=== PATIENT | male | born 1950 | race Caucasian/White ===

== ENCOUNTER 2020-03-23 09:33 | Outpatient (REF) | payer OTHER, SELFPAY | END 2020-03-23 09:34 | disposition home or self-care (01) | LOC: HO.LAB 09:33 | PROVIDERS: Visit Provider Internal Medicine | DX: Z20.828 Contact with and (suspected) exposure to other viral communicable diseases (principal) | CPT/HCPCS: C9803; U0003 ==

== ENCOUNTER 2022-10-02 09:50 | Outpatient (AMB) | payer OTHER, SELFPAY ==
[2022-10-02 09:58] VITALS: BP 135/74; PULSE 77; O2SAT 99; BMI 25.4
--- NOTE | 2022-10-02 09:58 | A.OFFPC_ITS ---
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 He has no significant past medical history, takes only multivitamins. He still works, self-employed, stays active, has started going to the gym with his . He however complains of problems with maintaining penile erection during sexual intercourse. This has been ongoing now for the last several months and progressively getting more frequent. He has not had any colon cancer screening in the past, willing to do Cologuard, and does not want to get any vaccinations. [facility] Medical History (Updated 06/18/23 @ 13:57 by Connie Atkins MD) Hiatal hernia Erectile dysfunction Surgical History (Updated 06/15/23 @ 14:18 by Jemma Stapleton RN) History of rectal surgery Hx of esophagogastroduodenoscopy Family History (Updated 10/02/22 @ 11:27 by Connie Atkins MD) Father Diabetes mellitus, Onset Age: 70 Mother No problems noted. Brother Acute myocardial infarction, Onset Age: 52 Social History Household Members: Spouse Housing: House Do you presently have visiting nurse or other home services: No Patient Tobacco Use Status: Current someday Tobacco user Tobacco use type: Cigarette Smoked in Last 30 Days: No e-Cigarette/Vaping Use: Never Used Patient Interested in Nicotine Replacement: No Second Hand Smoke Exposure: No Use of substances other than those prescribed or required for medical reasons: No Currently Displaying Signs/Symptoms of Drug Intoxication Withdrawal: No Any prior treatment program specific to substance use: No Have you been hit, kicked, punched, or otherwise hurt by someone within the past year? If so, by whom?: No Do you feel safe in your current relationship?: Yes Is there a partner from a previous relationship who is making you feel unsafe now?: No Are you made to feel afraid or neglected: No Are you DNR?: No Advance Directives: No Advance Directives Information Provided: No Do you have thoughts of harming others: None Do you have a plan to hurt others: No Plan Recently lost weight without trying: Unsure Eating poorly because of decreased appetite: Yes Nutrition Risks: Poor intake 0-25% >4 days Poor oral hygiene: No service: No Current occupational status: employed Cognitive needs: No Hearing needs: No Vision needs: Yes Questionnaire PHQ-9 Over the last 2 weeks, how often have you been bothered by any of the following problems? 1. Little interest or pleasure in doing things: not at all 2. Feeling down, depressed, or hopeless: not at all 3. Trouble falling or staying asleep, or sleeping too much: not at all 4. Feeling tired or having little energy: not at all 5. Poor appetite or overeating: not at all 6. Feeling bad about yourself - or that you are a failure or have let yourself or your family down: not at all 7. Trouble concentrating on things, such as reading the newspaper or watching television: not at all 8. Moving or speaking so slowly that other people could have noticed. Or the opposite - being so fidgety or restless that you have been moving around a lot more than usual: not at all 9. Thoughts that you would be better off or of hurting yourself in some way: not at all Total score: 0 Depression Screening Interpretation: Negative [id number] - PHQ-9 Billing: Yes Source: Developed by Drs. Vaughn Zazueta, Katharina Rey, Rony Hidalgo and colleagues, with an educational douglas from [email or web address]. Thrive Questionnaire Date Thrive assessed: 10/02/22 I am a: Patient What is your living situation today?: I have a steady place to live Within the past 12 months, did the food you bought not last and you didn't have the money to get more?: Never true Within the past 12 months, did you worry whether your food would run out before you got money to buy more?: Never true Do you have trouble paying for medicines?: No Do you have trouble getting transportation to medical appointments?: No Do you have trouble paying your heating and electricity bill?: No Do you have trouble taking care of your child, family member or friend?: No Do you have trouble with day-to-day activities such as bathing, preparing meals, shopping, managing finances, etc.?: No Are you currently unemployed and looking for a job?: No Are you interested in more education?: No AUDIT C Alcohol Use Questionnaire (AUDIT-C) 1. How often do you have a drink containing alcohol?: 2-3 times a week 2. How many drinks containing alcohol do you have on a typical day when you are drinking?: 1 or 2 (Drinks red wine with dinner) 3. How often do you have six or more drinks on one occasion?: Never Total Score: 3 Score Reviewed/Action Taken: Yes KRYSTIAN-7 AMB Questionnaire KRYSTIAN-7 Date KRYSTIAN - 7 assessed: 10/02/22 Feeling nervous, anxious, or on edge: 0 = Not at all Not being able to stop or control worryin = Not at all Worrying too much about different things: 0 = Not at all Trouble relaxin = Not at all Being so restless that it is hard to sit still: 0 = Not at all Becoming easily annoyed or irritable: 0 = Not at all Feeling afraid as if something awful might happen: 0 = Not at all Total KRYSTIAN-7 score (0-4 normal; 5-9 mild; 10-14 moderate; 15-21 severe): 0 Source: Developed by Drs. Vaughn Zazueta, Katharina Rey, Rony Hidalgo and colleagues, with an educational douglas from [email or web address]. KRYSTIAN-7 Assessment Billing KRYSTIAN-7 Assessment Tool: KRYSTIAN-7 Assessment 39671 Review of Systems Const Denies body aches, Denies fatigue, Denies fever(s), Denies headache(s) and Denies weakness Eyes Details: utd with eye exam, wears progressives Denies change in vision, Denies eye discharge and Denies itchy eyes ENT Denies dizziness, Denies headache(s), Denies nasal congestion, Denies nasal discharge and Denies sore throat Card Denies chest pain, Denies lightheadedness, Denies palpitations and Denies dyspnea Resp Denies chest congestion, Denies cough, Denies dyspnea and Denies wheezing GI Denies abdominal pain, Denies change in bowel habits and Denies heartburn Reports as per HPI, Denies hematuria, Denies oliguria, Denies difficulty urinating, Denies genital pain, Denies dysuria, Denies nocturia, Denies urinary frequency and Denies urinary urgency Musc Reports no additional complaints Skin/Breast Denies breast pain, Denies breast mass, Denies lesions and Denies rash Neuro Denies dizziness, Denies headache(s) and Denies weakness Psych Reports no additional complaints Endo Denies fatigue, Denies polydipsia, Denies polyuria and Denies palpitations Mac/Lymph Denies easy bruising Aller/Immun Denies itchy eyes, Denies seasonal rhinorrhea and Denies wheezing Physical exam (Primary Care) Vital Signs: Last Vital Signs Pulse 77 10/02/22 09:58 BP 135/74 10/02/22 09:58 Pulse Ox 99 10/02/22 09:58 Oxygen Delivery Method Room Air 10/02/22 09:58 BMI result Body Mass Index 25.4 Tobacco/Smoking Status: Tobacco use Status Tobacco use date assessed 10/02/22 10/02/22 10:00 Patient Tobacco Use Status Former Tobacco user 10/02/22 10:00 e-Cigarette/Vaping Use Never Used 10/02/22 10:00 PHQ-9: PHQ-9 Score PHQ-9: Total score 0 10/02/22 11:34 Depression Screening Interpretation: Negative Thrive Assessment: Date of Thrive Assessment Date Thrive assessed 10/02/22 10/02/22 10:03 Const General: healthy appearing, comfortable and no acute distress Nutritional Appearance: average body habitus Orientation/consciousness: patient oriented x3 Limitations: no limitations HENMT Head: Yes normocephalic Ears: hearing grossly normal bilaterally, external ears normal, TM's normal bilaterally and EAC's normal General nose exam: Normal external nose present Face and sinus: Yes face symmetric Mouth: Normal oral and palatal mucosa present, oropharynx normal and moist mucous membranes Eyes General: appearance normal, both eyes and all related structures Pupils: Equal, round and reactive pupils present EOM: EOMs intact bilaterally Neck Neck: Yes full ROM, Yes no lymphadenopathy and Yes supple Chest Chest palpation & inspection: normal inspection of the chest and normal palpation of entire chest wall Resp Effort & Inspection: normal respiratory effort and able to speak in complete sentences Auscultation: clear to auscultation bilaterally Cardio Rate: regular rate Rhythm: regular rhythm Heart sounds: S1 normal heart sound present and S2 normal heart sound present GI Inspection: Yes normal to inspection Palpation (GI): Soft to palpation, nontender, no guarding and no masses Auscultation: normal bowel sounds General: Yes no CVA tenderness Male General Exam: Yes normal external exam and No Genital lesions present Penis: normal penis, uncircumcised and No Genital lesions present Meatus: meatus normal Scrotum: scrotum normal Back/Spine/Pelvis Back: no CVA tenderness Skin General skin exam: no rashes or lesions noted Neuro General: patient oriented x3, gait normal, tone normal, moves all extremities, Normal light touch and pain sensation and no focal motor deficits Cranial nerves: Yes Equal, round and reactive pupils present Cognition (Neuro): normal cognition Gait exam (Neuro): Normal gait present Motor exam (neuro): 5/5 motor strength present throughout Extrem General: Yes full ROM, Yes no joint enlargement, Yes no clubbing, cyanosis or edema and Yes normal gait Psych Appearance: grossly normal and well kempt Mental Status: mental status grossly normal Speech and movement: Normal speech and movement present Affect: normal affect Attitude: cooperative Thought process: Normal thought process present Thought content: Normal thought content present Assessment and Plan Assessment & Plan (1) Annual visit for general adult medical examination with abnormal findings: Code(s): Z00.01 - Encounter for general adult medical examination with abnormal findings Plan: Will check appropriate labs. Continue regular dental visit every 6 months and regular eye exams, at least every 2 years. Take adequate calcium in diet and vitamin-D 3 at 2000 IU per cap once a day, in addition to weight-bearing exercises to help maintain good muscle tone and weight control. Instructed to do self-testicular exam to check for any mass. Patient does not want to get any vaccines. Cologuard ordered for colon cancer screening (2) Erectile dysfunction: Code(s): N52.9 - Male erectile dysfunction, unspecified Qualifiers: Erectile dysfunction type: unspecified Qualified Code(s): N52.9 - Male erectile dysfunction, unspecified Plan: Check total testosterone and free testosterone, check PSA, TSH with reflex free T4, basic metabolic panel if no abnormality seen, will refer to urology for further evaluation Orders: Orders Basic Metabolic Panel Fasting 10/02/22 Z00. - Encounter for general adult medical examination with abnormal findings, N52.9 - Male erectile dysfunction, unspecified Aspartate Amino Transferase 10/02/22 Z00. - Encounter for general adult medical examination with abnormal findings, N52.9 - Male erectile dysfunction, unspecified Testosterone, Free/Total 10/02/22 Z00. - Encounter for general adult medical examination with abnormal findings, N52.9 - Male erectile dysfunction, unspecified Alanine Aminotransferase 10/02/22 Z00. - Encounter for general adult medical examination with abnormal findings, N52.9 - Male erectile dysfunction, u nspecified Complete Blood Count Auto Diff 10/02/22 Z00. - Encounter for general adult medical examination with abnormal findings, N52.9 - Male erectile dysfunction, unspecified Lipid Panel 10/02/22 Z00.01 - Encounter for general adult medical examination with abnormal findings, N52.9 - Male erectile dysfunction, unspecified PSA,Total (Free>4and<10) 10/02/22 Z00.01 - Encounter for general adult medical examination with abnormal findings, N52.9 - Male erectile dysfunction, unspecified TSH reflex Free T4 10/02/22 Z00.01 - Encounter for general adult medical examination with abnormal findings, N52.9 - Male erectile dysfunction, unspecified Vitamin B12 and Folate 10/02/22 Z00.01 - Encounter for general adult medical examination with abnormal findings, N52.9 - Male erectile dysfunction, unspecified Vitamin D 25-OH Total 10/02/22 Z00.01 - Encounter for general adult medical examination with abnormal findings, N52.9 - Male erectile dysfunction, unspecified Referrals Cologuard Test Z12.11 - Encounter for screening for malignant neoplasm of colon, Z12.12 - Encounter for screening for malignant neoplasm of rectum Coding Level of Care Code New Pt Prev Care >65yr (43026) Diagnoses Annual visit for general adult medical examination with abnormal findings Z00.01 Erectile dysfunction, unspecified erectile dysfunction type N52.9 Erectile dysfunction type: unspecified Additional Codes KRYSTIAN-7 Assessment Billing - KRYSTIAN-7 Assessment Tool: KRYSTIAN-7 Assessment 07974 ([id number])
== END 2022-10-02 10:38 | disposition home or self-care (01) ==
LOC: HO.HMGC 09:50
PROVIDERS: PCP Internal Medicine; Visit Provider Internal Medicine
DX: Z00.01 Encounter for general adult medical examination with abnormal findings (principal); N52.9 Male erectile dysfunction, unspecified
CPT/HCPCS: 99499

== ENCOUNTER 2022-10-02 10:42 | Outpatient (REF) | payer OTHER, SELFPAY ==
[2022-10-02 13:49] LABS: MANUAL DIFF FLAG NO
[2022-10-02 14:07] LABS: Basophils Percent Auto 0.6 % (0-2); Eosinophils Absolute Auto 0.1 X10*3/uL (0.0-0.4); Eosinophils Percent Auto 0.9 % (0-4); Hematocrit 41.1 % (42.0-52.0); Hemoglobin 14.1 g/dl (14.0-18.0); Imm Gran Abs Auto 0.02 X10*3/uL (0.00-0.03); Imm Gran Pct Auto 0.3 % (0.0-0.4); Lymphocytes Absolute Auto 1.6 X10*3/uL (1.2-4.9); Lymphocytes Percent Auto 23.3 % (20-40); Mean Corpuscular HGB Conc 34.3 g/dl (31.0-36.0); Mean Corpuscular Hemoglobin 33.2 pg (27.0-33.0); Mean Corpuscular Volume 96.7 fL (80.0-98.0); Mean Platelet Volume 10.6 fL (9.4-12.4); Monocytes Absolute Auto 0.7 X10*3/uL (0.1-1.2); Monocytes Percent Auto 10.5 % (2-11); Neutrophils Absolute Auto 4.4 x10*3/uL (2.0-8.3); Neutrophils Percent Auto 64.4 % (45-73); Platelet Count 222 X10*3/uL (160-400); Red Blood Count 4.25 X10*6/uL (4.60-5.80); White Blood Count 6.9 X10*3/uL (4.8-10.8)
[2022-10-02 14:35] LABS: Alanine Aminotransferase 18 U/L (0-40); Anion Gap 14 (12-20); Aspartate Amino Transferase 25 U/L (5-37); Blood Urea Nitrogen 10 mg/dL (9-16); Calcium 10.4 mg/dL (8.4-10.2); Carbon Dioxide 26 mmol/L (22-29); Chloride 99 mmol/L (96-108); Cholesterol 264 mg/dL; Estimated Glomerular Filt Rate > 60; Glucose Fasting 99 mg/dL (60-99); HDL Cholesterol 85 mg/dL; LDL Cholesterol Calculated 162 mg/dl; Potassium 4.1 mmol/L (3.3-5.1); Sodium 135 mmol/L (135-145); Triglycerides 86 mg/dL
[2022-10-02 14:50] LABS: PSA,Total (Free>4and<10) 1.08 ng/mL (0.00-4.00)
[2022-10-02 14:54] LABS: TSH reflex Free T4 1.57 uIU/mL (0.32-4.0)
[2022-10-02 14:58] LABS: Folate 17.1 ng/mL (> or = 4.0); Vitamin B12 499 pg/mL (200-900)
[2022-10-09 16:29] LABS: Testosterone, Free 44.2 pg/mL (35.0-155.0); Testosterone, Total 421 ng/dL (250-1100)
== END 2022-10-02 10:43 | disposition home or self-care (01) ==
LOC: HO.HMGCLDS 10:42
PROVIDERS: PCP Internal Medicine; Visit Provider Internal Medicine
DX: Z00.01 Encounter for general adult medical examination with abnormal findings (principal); Z12.5 Encounter for screening for malignant neoplasm of prostate; N52.9 Male erectile dysfunction, unspecified
CPT/HCPCS: 36415; 80048; 80061; 82306; 82607; 82746; 84153; 84402; 84403; 84443; 84450; 84460; 85025

== ENCOUNTER 2023-04-24 08:22 | Outpatient (AMB) | payer OTHER, SELFPAY ==
[2023-04-24 08:35] VITALS: BP 140/80; PULSE 86; TEMP 36.5; O2SAT 96; BMI 25.4
--- NOTE | 2023-04-24 08:35 | AM.OFFWIN_ITS ---
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 Reports that pain is on/off. Reports poor appetite. Most of the times pain is activated by drinking Caffeine.Denies N/V/ or Constipation, but reports Occasional diarrhea. Denies fevers or chills. Per Pt Had negative Cologuard Dec 2022. [facility] Medical History (Updated 10/02/22 @ 10:32 by Connie Atkins MD) Erectile dysfunction Surgical History (Updated 10/02/22 @ 11:25 by Connie Atkins MD) No pertinent past surgical history Family History (Updated 10/02/22 @ 11:27 by Connie Atkins MD) Father Diabetes mellitus, Onset Age: 70 Mother No problems noted. Brother Acute myocardial infarction, Onset Age: 52 Social History Housing: House Patient Tobacco Use Status: Former Tobacco user e-Cigarette/Vaping Use: Never Used service: No Current occupational status: employed Cognitive needs: No Hearing needs: No Vision needs: Yes Review of Systems Const All systems reviewed & are unremarkable except as noted in HPI and below Physical Exam Vital Signs: Last Vital Signs Temp 97.7 F 04/24/23 08:35 Pulse 86 04/24/23 08:35 BP 140/80 H 04/24/23 08:35 Pulse Ox 96 04/24/23 08:35 Oxygen Delivery Method Room Air 04/24/23 08:35 BMI result Body Mass Index 25.4 Cardio Rate: regular rate Rhythm: regular rhythm Bruits: no abdominal aortic bruits GI Inspection: Yes normal to inspection, No Abdominal wall edema, No distended and No visible pulsation Palpation (GI): No Abdominal aortic bruit present, Soft to palpation, not firm, nontender, no guarding, No hepatosplenomegaly present and No Ascites present Auscultation: normal bowel sounds Assessment & Plan Assessment & Plan (1) Abdominal pain: Code(s): R10.9 - Unspecified abdominal pain Qualifiers: Abdominal location: epigastric Qualified Code(s): R10.13 - Epigastric pain Plan: - BLAND diet - Warm fluids - Keep a food diary Medications: New famotidine 40 mg PO BEDTIME 30 tabs 0RF R10.13 - Epigastric pain omeprazole 20 mg PO BID 60 caps 0RF R10.13 - Epigastric pain Coding Level of Care Code Est Pt Level 3 (53145) Diagnoses Epigastric pain R10.13 Abdominal location: epigastric Time Spent (min) 15
== END 2023-04-24 09:09 | disposition home or self-care (01) ==
PROVIDERS: PCP Internal Medicine; Visit Provider Nurse Practitioner Family
DX: R10.13 Epigastric pain (principal)
CPT/HCPCS: 99213

== ENCOUNTER 2023-06-12 08:11 | Outpatient (REF) | payer MEDICARE, OTHER, SELFPAY ==
[2023-06-12 11:24] LABS: MANUAL DIFF FLAG NO
[2023-06-12 11:36] LABS: Basophils Percent Auto 0.5 % (0-2); Eosinophils Absolute Auto 0.1 X10*3/uL (0.0-0.4); Eosinophils Percent Auto 0.6 % (0-4); Imm Gran Abs Auto 0.03 X10*3/uL (0.00-0.03); Imm Gran Pct Auto 0.4 % (0.0-0.4); Lymphocytes Absolute Auto 1.2 X10*3/uL (1.2-4.9); Lymphocytes Percent Auto 14.3 % (20-40); Mean Corpuscular HGB Conc 31.9 g/dl (31.0-36.0); Mean Corpuscular Hemoglobin 30.7 pg (27.0-33.0); Mean Corpuscular Volume 96.4 fL (80.0-98.0); Mean Platelet Volume 10.5 fL (9.4-12.4); Monocytes Absolute Auto 0.8 X10*3/uL (0.1-1.2); Monocytes Percent Auto 9.5 % (2-11); Neutrophils Absolute Auto 6.1 x10*3/uL (2.0-8.3); Neutrophils Percent Auto 74.7 % (45-73); Platelet Count 354 X10*3/uL (160-400); Red Blood Count 1.92 X10*6/uL (4.60-5.80); Red Cell Distribution Width 12.6 % (11.0-16.0); White Blood Count 8.2 X10*3/uL (4.8-10.8)
[2023-06-12 11:45] LABS: Hematocrit 18.5 % (42.0-52.0)
[2023-06-12 11:46] LABS: Hemoglobin 5.9 g/dl (14.0-18.0)
[2023-06-12 12:03] LABS: Alanine Aminotransferase 19 U/L (0-40); Albumin Level 3.6 g/dL (3.5-5.0); Alkaline Phosphatase 40 U/L (39-117); Anion Gap 10 (12-20); Aspartate Amino Transferase 21 U/L (5-37); Bilirubin Total 0.2 mg/dL (0.0-1.0); Blood Urea Nitrogen 19 mg/dL (9-16); Calcium 9.1 mg/dL (8.4-10.2); Carbon Dioxide 24 mmol/L (22-29); Chloride 101 mmol/L (96-108); Estimated Glomerular Filt Rate > 60; Glucose Random 118 mg/dL (60-115); Sodium 131 mmol/L (135-145); Total Protein 6.5 g/dL (6.5-8.0)
[2023-06-12 12:07] LABS: Insulin 8 uU/mL (2-29)
[2023-06-13 09:34] LABS: Follicle Stimulating Hormone 4.2 mIU/mL (1.4-12.8); Lutenizing Hormone 4.2 mIU/mL (1.6-15.2)
[2023-06-20 00:29] LABS: Dihydrotestosterone 32 ng/dL (12-65)
[2023-06-26 05:28] LABS: Estradiol Free 0.26 pg/mL; Estradiol, Ultrasensitive 13 pg/mL (< OR = 29)
[2023-07-02 15:39] LABS: Testosterone, Total 409 ng/dL (250-1100)
== END 2023-06-12 08:12 | disposition home or self-care (01) ==
LOC: HO.HMGCLDS 08:11
PROVIDERS: PCP Internal Medicine; Visit Provider Internal Medicine
DX: E29.1 Testicular hypofunction (principal); E11.9 Type 2 diabetes mellitus without complications
CPT/HCPCS: 36415; 80053; 82642; 82670; 82681; 83001; 83002; 83525; 84402; 84403; 85025

== ENCOUNTER 2023-06-12 16:38 | Inpatient (IN) | payer MEDICARE, OTHER, SELFPAY ==
--- NOTE | ~2023-06-12 | FL_ITS ---
EXAMINATION: XR FLUOROSCOPY WITH IMAGES CLINICAL INFORMATION: Fluoroscopy in OR for stent placement. [id number]-[id number] right hydronephrosis and hydroureter with possible soft tissue mass at the right ureterovesical junction on CT scan of abdomen/pelvis of 06/12/2023. COMPARISON: CT scan of abdomen/pelvis of 06/12/2023. TECHNIQUE: Fluoroscopy Supervised By: Dr. Cueva. Fluoroscopy Time: 9.1 seconds. Cumulative Dose: 2.20 mGy. DAP: None. Images: 3. FINDINGS: Radiologist was not in attendance at the time of the exam. Images were later provided. Images demonstrate stent with contrast administration. Contrast is present in the partially imaged ureter. FL/FL guidance in OR IMPRESSION: Fluoroscopic imaging for procedure performed under the direction of Dr. Mathew Cueva. Please refer to his operative report for more detailed evaluation.
--- NOTE | ~2023-06-12 | CT_ITS ---
EXAMINATION: CT abdomen pelvis w IV con CLINICAL INFORMATION: Reason for Exam upper abd pain COMPARISON: No prior CT available for comparison. TECHNIQUE: Multidetector volumetric imaging was performed from the superior aspect of the liver through the pubic symphysis 85 mL Omnipaque 350 injected Sagittal and coronal reformatted images were obtained on the technologist's workstation. This CT examination was performed using dose optimization techniques as appropriate, variously including the following: *Automated exposure control *Adjustment of mA and/or kV according to patient size (this includes techniques or standardized protocols for targeted exams where dose is matched to indication/reason for exam; i.e. extremities or head) *Use of iterative reconstruction technique DLP: 452 mGy-cm FINDINGS: LOWER THORAX: Included lung bases are clear. There is heterogeneous partially calcified soft tissue mass at the gastroesophageal junction with circumferential wall thickening of the distal esophagus concerning for possible pathologic process, roughly measures 4.2 x 2.9 cm refer image 9 series of 3, this may be further characterize with follow-up endoscopy and/or assessment with barium esophagogram. HEPATOBILIARY: No focal hepatic lesions. No biliary ductal dilatation. GALLBLADDER: Gallbladder unremarkable. SPLEEN: Spleen is normal in size. PANCREAS: No focal mass or ductal dilatation. STOMACH AND GASTROINTESTINAL TRACT: There is diffuse circumferential wall thickening of the gastric wall which in part could be due to its nondistention, cannot rule out diffuse infiltrating disease process such as gastric lymphoma or others. This also can be assessed with endoscopy. There is no bowel distention or thickening. No CT evidence of appendicitis. ADRENALS: No adrenal nodules. KIDNEYS/URETERS: There is moderate to severe right renal hydronephrosis and hydroureter, no stone however there is soft tissue thickening possible soft tissue mass of the right ureterovesicular junction 1.8 x 1.1 cm refer image 66 series of 3. This is concerning for possible urothelial neoplasm. There are nonobstructing stones in the right kidney the largest 3 mm image 27 series of 3. Overall low attenuation below enhancement of the right kidney suggesting high degree obstruction, there is also perinephric fat stranding. Left kidney there is a simple cyst was near class I 2.6 cm almost certainly benign, no follow-up recommended. URINARY BLADDER: There is soft tissue thickening along the posterior wall of the urinary bladder right of midline at its junction with the right ureter concerning for possible pathologic process, causing obstruction of the right ureter. The concern here is for TCC. Refer image 65 series 8. PELVIC VISCERA: No lymphadenopathy. Prostate 3.6 x 7.8 cm. There are a few scattered lymph nodes, no lymphadenopathy. PERITONEUM: There is a trace amount of the fat stranding retroperitoneum periaortic and pararenal especially around the right side, no free air. LYMPH NODES: No lymphadenopathy. VASCULAR:There is infrarenal fusiform aortic aneurysm 4.4 x 4.2 cm axially and about 6 6 cm craniocaudally. The aorta is heavily calcified. BONES, ABDOMINAL WALL AND SOFT TISSUES: Age-appropriate changes of the spine and skeletal system, no destructive osteolytic or osteosclerotic bone lesion found CT/CT abdomen pelvis w IV con IMPRESSION: 1. There is moderate to severe right renal hydronephrosis and hydroureter, no obstructing stone however there is soft tissue thickening possible soft tissue mass of the right ureterovesicular junction 1.8 x 1.1 cm. This is concerning for possible urothelial neoplasm TCC, urology consultation recommended. Consider cystoscopy. Damian images 2. There is diffuse circumferential wall thickening of the distal esophagus and gastric wall which in part could be due to its nondistention, cannot rule out diffuse infiltrating disease process such as gastric lymphoma or others. Damian images 3. Concern for a soft tissue mass of the distal esophagus/gastroesophageal junction as described above. This mass is partially calcified as described above. Attention to follow-up endoscopy/tissue biopsy is warranted. Damian images 4. Perinephric fat stranding around the right kidney and low attenuation of its cortex suggesting high degree of obstruction. There are additional Nonobstructing stones in the right. Damian images 5. Infrarenal fusiform aortic aneurysm 4.4 cm axially and about 6 cm craniocaudally. Recommend followup every 12 months and vascular specialist consultation. Reference: J Am Chris Radiol 2013; 10 (10): 789-794. This critical result was discussed with Dr Zavala by telephone at 06/12/2023 9:25 PM and it was ascertained that the content and urgency of the report was understood at the time of direct communication.
--- NOTE | ~2023-06-12 | FL_ITS ---
EXAMINATION: XR FLUOROSCOPY UPPER GI WITH AIR CLINICAL INFORMATION: Esophageal mass COMPARISON: CT abdomen and pelvis 06/12/2023 TECHNIQUE: Fluoroscopic air contrast upper GI examination was performed utilizing standard techniques with thin and thick barium and effervescent granules. Numerous spot images were obtained. FINDINGS: Dual and single contrast images of the esophagus demonstrate a granular appearance of the mucosa likely representing esophagitis. There is an irregular appearing stricture with heaped up margins at the GE junction that corresponds to the infiltrating mass as seen on CT and endoscopy. There is a type I hiatus hernia which also appears thickened and irregular, consistent with tumor involvement. There is either a large ulceration or diverticulum oriented to the left, just below the GE junction (RF 1-8, image 16 of 62). Gastroesophageal reflux is seen in the distal esophagus. Dual contrast and single contrast images of the stomach demonstrate an irregular appearing mass that extends from the GE junction to the cardia and body of the stomach along the lesser curvature. Further evaluation of the main gastric mucosa is limited due to lack of distention of the stomach. Single and air-contrast images of the duodenal bulb and sweep demonstrate no abnormal appearance of the mucosa that may represent extension of the infiltrative mass and/or duodenitis. A right ureteral stent is noted. FLUOROSCOPY TIME: 3 minutes 25 seconds Number of Spot Images: 14 Number of Cine: 9 DOSE AREA PRODUCT: 2135 uGy-m2 (microgray-meter squared) FL/FL upper GI w Ba Swallow IMPRESSION: 1. Granular appearance of the esophageal mucosa that may represent esophagitis. 2. Irregular appearing stricture at the GE junction with heaped up irregular margins that extends to involve the cardia and body of the stomach that likely represents a infiltrative tumor, as seen on recent endoscopy. This also involves a small type I hiatus hernia. There is also likely involvement of the antrum. This may represent gastric adenocarcinoma versus gastric lymphoma. This is essentially a linitis plastica appearance. Disease burden appears significant and advanced. 3. Irregular appearance of the duodenal mucosa with thickened folds and diminished lumen that also likely represents extension of the infiltrative mass into the duodenum. 4. Right ureteral stent in place. This procedure was performed by Rupert Herring PA-C, and supervised by Dr. Hernandez
[2023-06-12 17:31] VITALS: BP 124/74; PULSE 102; RESP 18; TEMP 37.3; O2SAT 100; BMI 23.5
--- NOTE | 2023-06-12 17:35 | ED.GENADULT ---
HPI - General Adult General Chief complaint: Recheck/Abnormal Lab/Rx Stated complaint: RBC low, stomach issues, palpitations, weak Time Seen by Provider: 06/12/23 17:59 Source: patient and family Limitations: no limitations History of Present Illness HPI narrative: 72-year-old male who denies significant past medical history presents for evaluation of anemia. Patient reports that he has been having intermittent epigastric pain, early satiety that has been going on for approximately 1 month. Patient states he followed up with naturopathic provider today, where he had blood work done. He received a telephone call that his blood levels were low. Denies any history of anemia. Does report over the past several weeks having increasing fatigue and generalized weakness. He denies any falls. He denies any hematemesis. No hematochezia or melena. In addition, the patient does report going to an urgent care near the onset of symptoms and was given ?pills from my stomach? but they did not do anything according to the patient. He has had decreased p.o. intake. Denies any aspirin or NSAID use. No anticoagulants. He is a former smoker. He drinks occasional wine. No illicit drug abuse. No recent colonoscopy but he has had Cologuard. Related Data Home Medications Medication Instructions Recorded Confirmed Candibactin 1 cap PO DAILY 06/12/23 06/12/23 Ortho Biotic 1 cap PO DAILY 06/12/23 06/12/23 Spectrazyme Metagest 1 cap PO DAILY 06/12/23 06/12/23 Previous Rx's Medication Instructions Recorded omeprazole 20 mg capsule,delayed 20 mg PO BID #60 caps 04/24/23 release Allergies Allergy/AdvReac Type Severity Reaction Status Date / Time No Known Allergies Allergy Verified 06/12/23 14:45 Review of Systems Constitutional: Constitutional: Denies chills, Denies fever(s) and Reports headache(s) Eyes: Eyes: Denies change in vision and Denies other (No redness.) ENT: Reports headache(s), Denies nasal congestion, Denies nasal discharge, Denies neck pain and Denies sore throat Cardiovascular: Cardiovascular: Denies chest pain, Denies palpitations, Denies dyspnea, Denies dyspnea on exertion and Denies orthopnea Respiratory: Respiratory: Denies cough, Denies dyspnea and Denies dyspnea on exertion Gastrointestinal: Gastrointestinal: Reports abdominal pain, Denies melena, Denies hematochezia, Denies diarrhea, Denies nausea and Denies vomiting Genitourinary: Genitourinary: Denies difficulty urinating, Denies dysuria and Denies urinary urgency Musculoskeletal: Musculoskeletal: Denies back pain, Denies muscle weakness, Denies neck pain and Denies numbness Integumentary/Breasts: Skin/Breast: Denies rash Neurologic: Reports headache(s), Denies focal weakness and Denies numbness Psychiatric: Psychiatric: Denies depression Endocrine: Endocrine: Denies palpitations [facility] Past Medical History Attestation statement: The following information was validated with the patient. [facility] Narrative: Patient denies Source: obtained from family Medical History (Updated 06/12/23 @ 23:33 by KOREY Kirkland) Hiatal hernia Erectile dysfunction Surgical History (Updated 10/02/22 @ 11:25 by Connie Atkins MD) No pertinent past surgical history Family History Family History (Updated 10/02/22 @ 11:27 by Connie Atkins MD) Father Diabetes mellitus, Onset Age: 70 Mother No problems noted. Brother Acute myocardial infarction, Onset Age: 52 Social History Social History Housing: House Patient Tobacco Use Status: Former Tobacco user Smoked in Last 30 Days: Yes e-Cigarette/Vaping Use: Never Used Use of substances other than those prescribed or required for medical reasons: No Advance Directives: No Advance Directives Information Provided: No Nutrition Risks: No Nutritional Risk service: No Current occupational status: employed Cognitive needs: No Hearing needs: No Vision needs: Yes Physical Exam ED Vital Signs: Vital Signs - 24 hr 06/12/23 17:31 06/12/23 18:33 06/12/23 20:31 Temperature 99.2 F 98.7 F Pulse Rate 102 H 87 89 Respiratory Rate 18 18 17 Blood Pressure 124/74 140/73 H 129/70 Pulse Oximetry 100 97 Oxygen Delivery Method Room Air Room Air 06/12/23 20:47 06/12/23 20:54 Temperature 98.9 F 98.8 F Pulse Rate 90 93 Respiratory Rate 16 14 Blood Pressure 136/64 131/69 Pulse Oximetry 97 Oxygen Delivery Method Room Air BMI result Body Mass Index 23.5 Resp Auscultation: clear to auscultation bilaterally Cardio Rate: regular rate GI Other: Abdomen is soft. Mild epigastric tenderness. There is no peritoneal signs. No CVAT. Rectal exam does not reveal any external hemorrhoids. Normal rectal tone. The prostate appears to be enlarged and is firm, nontender. Small amount of rectal secretions are heme positive, vice president quality assurance positive. Rectal Exam - Male: Yes heme positive stool Extrem Other: No calf tenderness or pedal edema Course Course Course Narrative: RME performed by Donna Del Rio PA-C. Patient is a 72 year old assigned male at presenting to the emergency department with abdominal pain and a low hemoglobin. Patient's hemoglobin is 5.9. Detailed physical exam and review of systems are deferred to the assistant sales center manager. Labs ordered. Charge nurse made aware. Reevaluation(s) Reevaluation #1: 9:[address] returned with multiple findings including esophageal, gastric mass as well as renal mass and aortic aneurysm. All findings were reviewed with patient. He was unaware of any of these findings. Patient remains hemodynamically stable. Message to Dr. Brown for transfer of care. Add Protonix in case bleeding is GI related. I suspect that this is the case due to the mass that is evidence on the CT. Medications Administered Generic Name Dose Route Start Last Admin Trade Name Freq PRN Reason Stop Dose Admin Sodium Chloride 3 ml 06/13/23 00:00 06/12/23 23:48 0.9 % Sodium Chloride Flush 3 Ml Syringe IVFLUSH 3 ml QSHIFT SHANNON Administration Discontinued Medications Generic Name Dose Route Start Last Admin Trade Name Freq PRN Reason Stop Dose Admin Sodium Chloride 100 mls @ 100 mls/hr 06/12/23 18:18 06/12/23 23:48 Ns IV 06/12/23 19:17 100 mls/hr ONCE ONE Administration Iohexol 85 ml 06/12/23 19:48 06/12/23 19:49 Iohexol 350 Mg/Ml 100 Ml Infus..Btl IV 06/12/23 19:49 85 ml ONCE ONE Administration Pantoprazole Sodium 40 mg 06/12/23 21:50 06/12/23 22:31 Pantoprazole Sodium 40 Mg/10 Ml Vial IVPUSH 06/12/23 21:51 40 mg ONCE ONE Administration Medical Decision Making Medical Decision Making MDM Narrative: 72-year-old male who denies significant past medical history presents with generalized weakness, epigastric pain, outpatient labs with a hemoglobin of 5.9. Given that patient is hemodynamically stable however symptomatic anemia, will transfuse. I have had extensive discussion with the patient and his regarding risks and benefits of transfusion. Patient has reviewed and signed consent form for transfusion. Check additional labs. Consideration CT. Differential Diagnosis Differential Diagnoses: The differential diagnosis associated with the presentation includes Peptic ulcer disease Upper GI bleeding Perforation Pancreatitis Admission/Observation Consideration of admission/observation: Escalation of care including admission/observation considered Given that the patient will be receiving IV transfusion, patient was brought to the hospital for further evaluation and management. Consult Healthcare Provider Management of the patient was discussed with: Hospitalist Lab Data [facility] Lab Attestation statement: I reviewed the patient's lab results. 6:30 p.m. received call from lab, patient's hemoglobin is 6 and hematocrit is 18.2. 06/12/23 18:21 06/12/23 18:21 Labs: Lab Results 06/12/23 06/12/23 Range/Units 18:21 22:12 WBC 7.2 (4.8-10.8) X10*3/uL RBC 1.93 L (4.60-5.80) X10*6/uL Hgb 6.0 L* (14.0-18.0) g/dl Hct 18.2 L* (42.0-52.0) % MCV 94.3 (80.0-98.0) fL MCH 31.1 (27.0-33.0) pg MCHC 33.0 (31.0-36.0) g/dl RDW 12.7 (11.0-16.0) % Plt Count 328 (160-400) X10*3/uL MPV 9.9 (9.4-12.4) fL Immature Gran % (Auto) 0.3 (0.0-0.4) % Neut % (Auto) 72.2 (45-73) % Lymph % (Auto) 16.9 L (20-40) % Will % (Auto) 9.5 (2-11) % Eos % (Auto) 0.8 (0-4) % Baso % (Auto) 0.3 (0-2) % Lymph # (Auto) 1.2 (1.2-4.9) X10*3/uL Will # (Auto) 0.7 (0.1-1.2) X10*3/uL Eos # (Auto) 0.1 (0.0-0.4) X10*3/uL Baso # (Auto) 0.0 (0.0-0.2) X10*3/uL Abs Immat Gran (auto) 0.02 (0.00-0.03) X10*3/uL Absolute Neuts (auto) 5.2 (2.0-8.3) x10*3/uL Absolute Nucleated RBC 0.000 (0.0-0.012) X10*3/uL Nucleated RBC % (auto) 0.0 (0.0-0.2) /100WBC PT 13.0 (11.1-13.3) SEC INR 1.1 (0.9-1.1) APTT 30.1 (26.0-36.8) SEC Sodium 134 L (135-145) mmol/L Potassium 3.8 (3.3-5.1) mmol/L Chloride 101 (96-108) mmol/L Carbon Dioxide 25 (22-29) mmol/L Anion Gap 12 (12-20) BUN 19 H (9-16) mg/dL Creatinine 1.12 (0.5-1.4) mg/dL Estim Creat Clear Calc 57.3 Estimated GFR > 60 Random Glucose 106 (60-115) mg/dL Calcium 9.7 D (8.4-10.2) mg/dL Magnesium 1.8 (1.6-2.6) mg/dL Total Bilirubin 0.2 (0.0-1.0) mg/dL AST 21 (5-37) U/L ALT 20 (0-40) U/L Alkaline Phosphatase 42 (39-117) U/L Troponin I High Sens 7.6 (<3.5-35.0) ng/L Total Protein 6.9 (6.5-8.0) g/dL Albumin 3.8 (3.5-5.0) g/dL Lipase 87 H (8-78) U/L Stool Occult Blood POSITIVE (NEGATIVE) Blood Type AB Negative Antibody Screen NEGATIVE Crossmatch See Detail Independent Interpretation I performed an independent interpretation of an: EKG Interpretation: Sinus at 87 beats per minute without any acute ischemic changes. Radiology Impression Discussion of test interpretation with radiology: I have reviewed the radiologist's reading. Radiologist Impression: [address] [address] [address] Scan Report Signed Patient: Rd Davis MR#: [id number] : 1950 Acct:[id number] Age/Sex: 72 / M ADM Date: 06/12/23 Loc: HO.ED Attending Dr: Ordering Physician: Larry Rushing Date of Service: 06/12/23 Procedure(s): CT abdomen pelvis w IV con Accession Number(s): [id number] cc: Connie Atkins MD; Larry Rushing~ EXAMINATION: CT abdomen pelvis w IV con CLINICAL INFORMATION: Reason for Exam upper abd pain COMPARISON: No prior CT available for comparison. TECHNIQUE: Multidetector volumetric imaging was performed from the superior aspect of the liver through the pubic symphysis 85 mL Omnipaque 350 injected Sagittal and coronal reformatted images were obtained on the technologist's workstation. This CT examination was performed using dose optimization techniques as appropriate, variously including the following: *Automated exposure control *Adjustment of mA and/or kV according to patient size (this includes techniques or standardized protocols for targeted exams where dose is matched to indication/reason for exam; i.e. extremities or head) *Use of iterative reconstruction technique DLP: 452 mGy-cm FINDINGS: LOWER THORAX: Included lung bases are clear. There is heterogeneous partially calcified soft tissue mass at the gastroesophageal junction with circumferential wall thickening of the distal esophagus concerning for possible pathologic process, roughly measures 4.2 x 2.9 cm refer image 9 series of 3, this may be further characterize with follow-up endoscopy and/or assessment with barium esophagogram. HEPATOBILIARY: No focal hepatic lesions. No biliary ductal dilatation. GALLBLADDER: Gallbladder unremarkable. SPLEEN: Spleen is normal in size. PANCREAS: No focal mass or ductal dilatation. STOMACH AND GASTROINTESTINAL TRACT: There is diffuse circumferential wall thickening of the gastric wall which in part could be due to its nondistention, cannot rule out diffuse infiltrating disease process such as gastric lymphoma or others. This also can be assessed with endoscopy. There is no bowel distention or thickening. No CT evidence of appendicitis. ADRENALS: No adrenal nodules. KIDNEYS/URETERS: There is moderate to severe right renal hydronephrosis and hydroureter, no stone however there is soft tissue thickening possible soft tissue mass of the right ureterovesicular junction 1.8 x 1.1 cm refer image 66 series of 3. This is concerning for possible urothelial neoplasm. There are nonobstructing stones in the right kidney the largest 3 mm image 27 series of 3. Overall low attenuation below enhancement of the right kidney suggesting high degree obstruction, there is also perinephric fat stranding. Left kidney there is a simple cyst was near class I 2.6 cm almost certainly benign, no follow-up recommended. URINARY BLADDER: There is soft tissue thickening along the posterior wall of the urinary bladder right of midline at its junction with the right ureter concerning for possible pathologic process, causing obstruction of the right ureter. The concern here is for TCC. Refer image 65 series 8. PELVIC VISCERA: No lymphadenopathy. Prostate 3.6 x 7.8 cm. There are a few scattered lymph nodes, no lymphadenopathy. PERITONEUM: There is a trace amount of the fat stranding retroperitoneum periaortic and pararenal especially around the right side, no free air. LYMPH NODES: No lymphadenopathy. VASCULAR:There is infrarenal fusiform aortic aneurysm 4.4 x 4.2 cm axially and about 6 6 cm craniocaudally. The aorta is heavily calcified. BONES, ABDOMINAL WALL AND SOFT TISSUES: Age-appropriate changes of the spine and skeletal system, no destructive osteolytic or osteosclerotic bone lesion found CT/CT abdomen pelvis w IV con IMPRESSION: 1. There is moderate to severe right renal hydronephrosis and hydroureter, no obstructing stone however there is soft tissue thickening possible soft tissue mass of the right ureterovesicular junction 1.8 x 1.1 cm. This is concerning for possible urothelial neoplasm TCC, urology consultation recommended. Consider cystoscopy. Damian images 2. There is diffuse circumferential wall thickening of the distal esophagus and gastric wall which in part could be due to its nondistention, cannot rule out diffuse infiltrating disease process such as gastric lymphoma or others. Damian images 3. Concern for a soft tissue mass of the distal esophagus/gastroesophageal junction as described above. This mass is partially calcified as described above. Attention to follow-up endoscopy/tissue biopsy is warranted. Damian images 4. Perinephric fat stranding around the right kidney and low attenuation of its cortex suggesting high degree of obstruction. There are additional Nonobstructing stones in the right. Damian images 5. Infrarenal fusiform aortic aneurysm 4.4 cm axially and about 6 cm craniocaudally. Recommend followup every 12 months and vascular specialist consultation. Reference: J Am Chris Radiol 2013; 10 (10): 789-794. This critical result was discussed with Dr Zavala by telephone at 06/12/2023 9:25 PM and it was ascertained that the content and urgency of the report was understood at the time of direct communication. Dictated By: Jonathan Richardson MD Signed By: <Electronically signed by Jonathan Richardson MD in OV> 06/12/232127 DD/ 52 TD/TT: Wet Process Head Miller: Independent Historian Clinical information obtained from an independent historian. History obtained from or confirmed by: Spouse Discharge Plan Discharge Clinical Impression: Anemia Qualifiers: Anemia type: unspecified type Qualified Code(s): D64.9 - Anemia, unspecified Abdominal pain Qualifiers: Abdominal location: epigastric Qualified Code(s): R10.13 - Epigastric pain Patient Disposition: Admitted As Inpatient
[2023-06-12 18:26] LABS: MANUAL DIFF FLAG NO
[2023-06-12 18:27] LABS: Basophils Percent Auto 0.3 % (0-2); Eosinophils Absolute Auto 0.1 X10*3/uL (0.0-0.4); Eosinophils Percent Auto 0.8 % (0-4); Imm Gran Abs Auto 0.02 X10*3/uL (0.00-0.03); Imm Gran Pct Auto 0.3 % (0.0-0.4); Lymphocytes Absolute Auto 1.2 X10*3/uL (1.2-4.9); Lymphocytes Percent Auto 16.9 % (20-40); Mean Corpuscular Hemoglobin 31.1 pg (27.0-33.0); Mean Corpuscular Volume 94.3 fL (80.0-98.0); Mean Platelet Volume 9.9 fL (9.4-12.4); Monocytes Absolute Auto 0.7 X10*3/uL (0.1-1.2); Monocytes Percent Auto 9.5 % (2-11); Neutrophils Absolute Auto 5.2 x10*3/uL (2.0-8.3); Neutrophils Percent Auto 72.2 % (45-73); Platelet Count 328 X10*3/uL (160-400); Red Blood Count 1.93 X10*6/uL (4.60-5.80); Red Cell Distribution Width 12.7 % (11.0-16.0); White Blood Count 7.2 X10*3/uL (4.8-10.8)
[2023-06-12 18:29] LABS: Hematocrit 18.2 % (42.0-52.0)
--- NOTE | 2023-06-12 18:31 | ECG_ITS ---
Test Reason : weakness Blood Pressure : / mmHG Vent. Rate : 087 BPM Atrial Rate : 087 BPM P-R Int : 150 ms QRS Dur : 108 ms QT Int : 376 ms P-R-T Axes : 021 -43 028 degrees QTc Int : 452 ms Normal sinus rhythm Left axis deviation Incomplete right bundle branch block Minimal voltage criteria for LVH, may be normal variant ( R in aVL ) Abnormal ECG No previous ECGs available Referred By: Larry Rushing Electronically Signed By:Mathew Joseph
[2023-06-12 18:33] VITALS: BP 140/73; PULSE 87; RESP 18; O2SAT 97
[2023-06-12 18:37] LABS: INTERNATIONAL NORM RATIO 1.1 (0.9-1.1)
[2023-06-12 18:40] LABS: Partial Thromboplastin Time 30.1 SEC (26.0-36.8)
[2023-06-12 18:45] LABS: Alanine Aminotransferase 20 U/L (0-40); Albumin Level 3.8 g/dL (3.5-5.0); Alkaline Phosphatase 42 U/L (39-117); Anion Gap 12 (12-20); Aspartate Amino Transferase 21 U/L (5-37); Bilirubin Total 0.2 mg/dL (0.0-1.0); Blood Urea Nitrogen 19 mg/dL (9-16); Calcium 9.7 mg/dL (8.4-10.2); Carbon Dioxide 25 mmol/L (22-29); Chloride 101 mmol/L (96-108); Creatinine Clr Calc Pharmacy 57.3; Estimated Glomerular Filt Rate > 60; Glucose Random 106 mg/dL (60-115); Lipase 87 U/L (8-78); Magnesium 1.8 mg/dL (1.6-2.6); Potassium 3.8 mmol/L (3.3-5.1); Sodium 134 mmol/L (135-145); Total Protein 6.9 g/dL (6.5-8.0)
[2023-06-12 18:59] LABS: Troponin-I High Sensitivity 7.6 ng/L (<3.5-35.0)
[2023-06-12] MEDS: iohexoL 350 MG/ML 100 ML INFUS..BTL 85 ML IV (19:49)
[2023-06-12 20:31] VITALS: BP 129/70; PULSE 89; RESP 17; TEMP 37.1
[2023-06-12 20:47] VITALS: BP 136/64; PULSE 90; RESP 16; TEMP 37.2
--- NOTE | 2023-06-12 20:49 | PC.NURSE ---
Patient is alert and oriented x4, VSS. Patient reports generalized weakness, denies any pain at present. Blood transfusion initiated via 20 G R AC IV line, patient tolerating with no adverse reaction noted. Oscar peng placed within patient's reach.
[2023-06-12 20:54] VITALS: BP 131/69; PULSE 93; RESP 14; TEMP 37.1; O2SAT 97
--- NOTE | 2023-06-12 21:54 | P.HPHOSP_ITS ---
History of Present Illness Date of Service: 06/12/23 Attending physician on admission: Mary Cueva Chief Complaint: Lightheadedness lightheadedness, dizziness, fatigue Pt is a 72-year-old male with a PMH significant for?congenital hiatal hernia but otherwise healthly who presents to the ED after outpatient labs showed low blood levels. Pt reports he began having abdominal issues in December-January of last year with mild cramping and abdominal pain. Thought it was his hiatal hernia acting up. Dougherty some relief after taking TUMS and losing some weight. Dougherty overall well for awhile until 1-2 months ago when he began noticing a decrease in appetite and that he would get full quickly. Occasional central abdominal discomfort/pain. During this past week patient has felt increasingly fatigued and weak. Pt has seen both his PCP and manager land due to persistent symptoms. His manager land ordered outside labs which showed H&H of 5.9/18.5 and was told come to the ED for further evaluation. Patient reports he is experienced some nausea but no vomiting over the past few days. Denies hematochezia, melena, hemoptysis, hematemesis,. Denies shortness of breath or cough. No dysphagia or odynophagia. Denies chest pain/pressure, palpitations. No fever, chills. Denies urologic symptoms: No flank pain, polyuria, dysuria, or hematuria. No changes to bowel or bladder habits. In the ED pt was afebrile but tachycardic up to 102, and slightly hypertensive up to 140/73. Labs were significant for H&H 6.0/18.2, creatinine 1.12 (up from 0.74 on 10/02/22), lipase 87. No leukocytosis. No significant electrolyte abnormalities. Stool positive for occult blood. CT?of abdomen pelvis with multiple findings: Concern for soft tissue mass of the distal esophagus/gastroesophageal junction; diffuse circumferential wall thickening of the distal esophagus and gastric wall secondary to nondistention versus diffuse infiltrating disease process; moderate to severe right renal hydronephrosis and hydroureter with no obstructing stone, but soft tissue thickening with a possible soft tissue mass of the right ureteral vesicular junction concerning for possible urethral neoplasm; perinephric fat stranding around the right kidney and low-attenuation of its cortex suggestive of a high degree of obstruction; an infrarenal fusiform aortic aneurysm of 4.4 cm axially and about 6 cm cranial caudally. EKG demonstrated normal sinus rhythm with nonspecific ST abnormalities. Pt was treated with Protonix and transfused 1 unit PRBCs. Pt will be admitted to the hospital for treatment and further evaluation of symptomatic anemia likely secondary to GI bleed. Review of Systems 2 Review of Systems: Fatigue, weakness Central abdominal pain Nausea, no vomiting Anorexia, early satiety Denies changes to bowel or bladder habits No chest pain/pressure, palpitations Denies shortness of breath No fever, chills [facility] Medical History (Updated 06/12/23 @ 23:33 by KOREY Kirkland) Hiatal hernia Erectile dysfunction Family History (Updated 10/02/22 @ 11:27 by Connie Atkins MD) Father Diabetes mellitus, Onset Age: 70 Mother No problems noted. Brother Acute myocardial infarction, Onset Age: 52 Surgical History (Updated 10/02/22 @ 11:25 by Connie Atkins MD) No pertinent past surgical history Social History Housing: House Patient Tobacco Use Status: Former Tobacco user Smoked in Last 30 Days: Yes e-Cigarette/Vaping Use: Never Used Use of substances other than those prescribed or required for medical reasons: No Advance Directives: No Advance Directives Information Provided: No service: No Current occupational status: employed Cognitive needs: No Hearing needs: No Vision needs: Yes Meds Allergies Allergy/AdvReac Type Severity Reaction Status Date / Time No Known Allergies Allergy Verified 06/12/23 14:45 Home Medications Medication Instructions Recorded Confirmed Last Taken Type Candibactin 1 cap PO DAILY 06/12/23 06/12/23 Unknown History Ortho Biotic 1 cap PO DAILY 06/12/23 06/12/23 Unknown History Spectrazyme Metagest 1 cap PO DAILY 06/12/23 06/12/23 Unknown History Physical Exam 2 Vital Signs and Narrative: Vital Signs: Last Vital Signs Temp 98.8 F 06/12/23 20:54 Pulse 93 06/12/23 20:54 Resp 14 06/12/23 20:54 BP 131/69 06/12/23 20:54 Pulse Ox 97 06/12/23 20:54 O2 Del Method Room Air 06/12/23 20:54 BMI result Body Mass Index 23.5 Constitutional: Alert, in no acute distress. Mental Status: Oriented to person, place and time. Eyes: Pupils are equal, round, and reactive to light. Ear, Nose, and Throat: Oropharynx clear, mucous membranes moist. Ears and nose without deformities. Trachea midline. Respiratory: Clear to auscultation bilaterally. No wheezing, rales, or rhonchi. Cardiovascular: S1, S2 regular. No murmurs, rubs, or gallops. Gastrointestinal: Abdomen soft, non-tender, non-distended. Normal bowel sounds. Neurologic: Cranial nerves II-XII are grossly intact bilaterally. No focal neurological deficits. Moves all extremities spontaneously. Skin: Warm, dry. Musculoskeletal: No cyanosis or clubbing. Extremities: No edema. Psychiatric: Normal mood and affect. Results Labs 06/12/23 18:21 06/12/23 18:21 Labs: Laboratory Results - last 24 hr 06/12/23 18:21 MCV 94.3 MCH 31.1 MCHC 33.0 RDW 12.7 Plt Count 328 MPV 9.9 Immature Gran % (Auto) 0.3 Neut % (Auto) 72.2 Lymph % (Auto) 16.9 L [place] % (Auto) 9.5 Eos % (Auto) 0.8 Baso % (Auto) 0.3 Lymph # (Auto) 1.2 [place] # (Auto) 0.7 Eos # (Auto) 0.1 Baso # (Auto) 0.0 Abs Immat Gran (auto) 0.02 Absolute Neuts (auto) 5.2 Absolute Nucleated RBC 0.000 Nucleated RBC % (auto) 0.0 PT 13.0 INR 1.1 APTT 30.1 Anion Gap 12 Estim Creat Clear Calc 57.3 Estimated GFR > 60 Random Glucose 106 Calcium 9.7 D Magnesium 1.8 Total Bilirubin 0.2 AST 21 ALT 20 Alkaline Phosphatase 42 Troponin I High Sens 7.6 Total Protein 6.9 Albumin 3.8 Lipase 87 H Blood Type AB Negative Antibody Screen NEGATIVE Crossmatch See Detail Imaging Radiologist's Impressions: Impressions Abdomen/Pelvis CT 06/12/23 19:53 IMPRESSION: 1. There is moderate to severe right renal hydronephrosis and hydroureter, no obstructing stone however there is soft tissue thickening possible soft tissue mass of the right ureterovesicular junction 1.8 x 1.1 cm. This is concerning for possible urothelial neoplasm TCC, urology consultation recommended. Consider cystoscopy. Damian images 2. There is diffuse circumferential wall thickening of the distal esophagus and gastric wall which in part could be due to its nondistention, cannot rule out diffuse infiltrating disease process such as gastric lymphoma or others. Damian images 3. Concern for a soft tissue mass of the distal esophagus/gastroesophageal junction as described above. This mass is partially calcified as described above. Attention to follow-up endoscopy/tissue biopsy is warranted. Damian images 4. Perinephric fat stranding around the right kidney and low attenuation of its cortex suggesting high degree of obstruction. There are additional Nonobstructing stones in the right. Damian images 5. Infrarenal fusiform aortic aneurysm 4.4 cm axially and about 6 cm craniocaudally. Recommend followup every 12 months and vascular specialist consultation. Reference: J Am Chris Radiol 2013; 10 (10): 789-794. This critical result was discussed with Dr Zavala by telephone at 06/12/2023 9:25 PM and it was ascertained that the content and urgency of the report was understood at the time of direct communication. Assessment and Plan (1) Anemia: Qualifiers: Anemia type: unspecified type Qualified Code(s): D64.9 - Anemia, unspecified Status: Acute Plan Pt is a 72-year-old male with a PMH significant for?congenital hiatal hernia but otherwise healthly who presents to the ED after outpatient labs showed low blood levels. Pt will be admitted to the hospital for treatment and further evaluation of symptomatic anemia likely secondary to GI bleed. Symptomatic anemia H&H 6.0/18.2; stool positive for occult blood Patient with fatigue, tiredness x1 week; has experienced anorexia and early satiety CT showing a likely mass at GE junction, esophagus and gastric wall thickening concerning for infiltration Likely secondary to GI bleed Patient transfused 1 unit PRBCs in ED Will be treated with Protonix IV 40 mg b.i.d. NPO after midnight possible EGD tomorrow GI consult Follow CBC Possible right kidney obstruction/neoplasm CT showing likely right kidney obstruction, moderate to severe hydronephrosis and hydroureter with possible urothelial neoplasm Pt asymptomatic: denies flank pain or changes to bladder habits Urology consult Aortic aneurism CT found infrarenal fusiform aortic aneurysm of 4.4 cm Follow-up outpatient with vascular Full Code Attending:?Dr. Brown DVT Prophylaxis: Pneumatic boots due to symptomatic anemia Pt will require a hospitalization of at least two nights for treatment and further evaluation of symptomatic anemia likely secondary to GI bleed. Patient required hospitalization for close monitoring of blood levels, transfusion as necessary, specialist consultation, and further imaging. Quality Stroke Does the patient have a stroke diagnosis?: No VTE Prior VTE?: No VTE Risk Level:: Medical - moderate - high VTE Device Contraindication: N/A - Device Ordered VTE Drug Contraindication: Treatment Not Indicated
--- NOTE | 2023-06-12 21:59 | PHA.MEDREC ---
Pharmacy Consult ? Medication Reconciliation Pharmacy has completed the medication reconciliation. Patient received a bunch of supplement from provider office. Estrella Harding, EmmanuelD
[2023-06-12 22:25] LABS: OBS Int Ctl Valid YES; OBS1 POSITIVE (NEGATIVE)
[2023-06-12] MEDS: Pantoprazole Sodium 40 MG/10 ML VIAL IVPUSH (22:31)
[2023-06-12 23:40] VITALS: BP 129/68; PULSE 85; RESP 16; TEMP 36.8; O2SAT 97
[2023-06-12] MEDS: 0.9 % Sodium Chloride Flush 3 ML SYRINGE IVFLUSH (23:48)
[2023-06-13] VITALS (9 sets, daily range): BP systolic 113–141; BP diastolic 56–74; PULSE 74–89; RESP 15–18; TEMP 36.2–37.2; O2SAT 96–98; BMI 24.1
--- NOTE | 2023-06-13 00:02 | PC.NURSE ---
Blood transfusion completed, VSS. Patient resting comfortably on a stretcher bed, call peng in reach.
[2023-06-13] MEDS: Pantoprazole Sodium 40 MG/10 ML VIAL IVPUSH ×2 (06:03→17:50)
[2023-06-13 06:07] LABS: Mean Corpuscular HGB Conc 33.2 g/dl (31.0-36.0); Mean Corpuscular Volume 93.5 fL (80.0-98.0); Mean Platelet Volume 9.7 fL (9.4-12.4); Platelet Count 283 X10*3/uL (160-400); Red Blood Count 2.16 X10*6/uL (4.60-5.80); Red Cell Distribution Width 12.6 % (11.0-16.0); White Blood Count 6.1 X10*3/uL (4.8-10.8)
[2023-06-13 06:11] LABS: Hemoglobin 6.7 g/dl (14.0-18.0)
[2023-06-13 06:12] LABS: Hematocrit 20.2 % (42.0-52.0)
[2023-06-13 06:19] LABS: Anion Gap 9 (12-20); Blood Urea Nitrogen 15 mg/dL (9-16); Calcium 9.1 mg/dL (8.4-10.2); Carbon Dioxide 26 mmol/L (22-29); Chloride 104 mmol/L (96-108); Creatinine Clr Calc Pharmacy 54.4; Estimated Glomerular Filt Rate > 60; Glucose Random 103 mg/dL (60-115); Potassium 4.2 mmol/L (3.3-5.1); Sodium 135 mmol/L (135-145)
--- NOTE | 2023-06-13 09:21 | HO.PM.IMPN ---
Subjective Subjective Date of Service: 06/13/23 Interval History: Follow-up for symptomatic anemia No acute nursing events overnight. Patient with hemoglobin 6.7 this a.m., will transfuse additional 1 unit PRBC Patient without any new complaints Review of Systems All review of systems reviewed except as above Constitutional Constitutional: Reports no additional constitutional complaints Cardiovascular Cardiovascular: Reports no additional cardiovascular complaints Respiratory Respiratory: Reports no additional respiratory complaints Genitourinary Genitourinary: Reports no additional male genitourinary complaints Physical Exam Vital Signs: Vital Signs: Last Vital Signs Temp 98.6 F 06/13/23 08:27 Pulse 74 06/13/23 08:27 Resp 16 06/13/23 08:27 BP 119/56 L 06/13/23 08:27 Pulse Ox 97 06/13/23 07:16 O2 Del Method Room Air 06/13/23 07:16 BMI result Body Mass Index 24.1 Middle-aged male lying in bed in no distress Neck supple, no JVD Regular rate and rhythm, S1-S2 heard Regular breath sounds bilaterally, no wheezing or crackles appreciated Abdomen soft nontender, no guarding, no rigidity Patient is awake, alert and oriented to self, place, time and person ; no focal motor deficit Psych: Normal mood No pedal edema Objective Data Active Medications Acetaminophen (Acetaminophen 325 Mg Tablet) 650 mg PO Q6H PRN PRN Reason: Pain, Mild (Pain Scale 1-3) Benzonatate (Benzonatate 100 Mg Capsule) 100 mg PO TID PRN PRN Reason: Cough Docusate Sodium (Docusate Sodium 100 Mg Capsule) 100 mg PO DAILY PRN PRN Reason: Constipation Melatonin (Melatonin 3 Mg Tablet) 6 mg PO BEDTIME PRN PRN Reason: Insomnia Ondansetron HCl (Ondansetron Hcl 4 Mg/2 Ml Vial) 4 mg IVPUSH Q8H PRN PRN Reason: Nausea and Vomiting Pantoprazole Sodium (Pantoprazole Sodium 40 Mg/10 Ml Vial) 40 mg IVPUSH BID@0630,1630 [facility] Last Admin: 06/13/23 06:03 Dose: 40 mg Documented By: CAROLINE Sodium Chloride (0.9 % Sodium Chloride Flush 3 Ml Syringe) 3 ml IVFLUSH QSHIFT [facility] Last Admin: 06/12/23 23:48 Dose: 3 ml Documented By: BORA Castillo 06/13/23 05:57 06/13/23 05:57 Labs: Laboratory Results - last 24 hr 06/12/23 06/12/23 06/13/23 18:21 22:12 05:57 MCV 94.3 93.5 MCH 31.1 31.0 MCHC 33.0 33.2 RDW 12.7 12.6 Plt Count 328 283 MPV 9.9 9.7 Immature Gran % (Auto) 0.3 Neut % (Auto) 72.2 Lymph % (Auto) 16.9 L [place] % (Auto) 9.5 Eos % (Auto) 0.8 Baso % (Auto) 0.3 Lymph # (Auto) 1.2 [place] # (Auto) 0.7 Eos # (Auto) 0.1 Baso # (Auto) 0.0 Abs Immat Gran (auto) 0.02 Absolute Neuts (auto) 5.2 Absolute Nucleated RBC 0.000 0.000 Nucleated RBC % (auto) 0.0 0.0 PT 13.0 INR 1.1 APTT 30.1 Anion Gap 12 9 L Estim Creat Clear Calc 57.3 54.4 Estimated GFR > 60 > 60 Random Glucose 106 103 Calcium 9.7 D 9.1 D Magnesium 1.8 Total Bilirubin 0.2 AST 21 ALT 20 Alkaline Phosphatase 42 Troponin I High Sens 7.6 Total Protein 6.9 Albumin 3.8 Lipase 87 H Stool Occult Blood POSITIVE Blood Type AB Negative Antibody Screen NEGATIVE Crossmatch See Detail Assessment and Plan (1) Acute GI bleeding: Status: Acute Plan Pt is a 72-year-old male with a PMH significant for?congenital hiatal hernia but otherwise healthly who presents to the ED after outpatient labs showed low blood levels. Pt will be admitted to the hospital for treatment and further evaluation of symptomatic anemia likely secondary to GI bleed. Symptomatic anemia Likely secondary to GI bleed CT showing a likely mass at GE junction, esophagus and gastric wall thickening concerning for infiltration Continue Protonix IV 40 mg b.i.d. NPO until GI evaluation Possible right kidney obstruction/neoplasm CT showing likely right kidney obstruction, moderate to severe hydronephrosis and hydroureter with possible urothelial neoplasm Pt asymptomatic: denies flank pain or changes to bladder habits Urology consult Aortic aneurism CT found infrarenal fusiform aortic aneurysm of 4.4 cm Follow-up outpatient with vascular Full Code Attending:?Dr. Brown DVT Prophylaxis: Pneumatic boots due to symptomatic anemia Pt will require a hospitalization of at least two nights for treatment and further evaluation of symptomatic anemia likely secondary to GI bleed. Patient required hospitalization for close monitoring of blood levels, transfusion as necessary, specialist consultation, and further imaging. Quality Stroke Does the patient have a stroke diagnosis?: No VTE Prior VTE?: No VTE Risk Level:: Medical - moderate - high VTE Device Contraindication: N/A - Device Ordered VTE Drug Contraindication: Treatment Not Indicated
[2023-06-13] MEDS: 0.9 % Sodium Chloride Flush 3 ML SYRINGE IVFLUSH ×2 (11:53→17:50)
[2023-06-13 12:07] LABS: Hematocrit 24.7 % (42.0-52.0); Hemoglobin 8.1 g/dl (14.0-18.0)
--- NOTE | 2023-06-13 12:08 | MHC.SL.SWA ---
Speech Pathologist Impression: WFL Risk of Aspiration Due to: None Dysphasia Diet Status: Per MD, pt to start on clear liquid diet, will be assessed by G.I. for ? bleed. Liquid Consistency and Strategies for Safe Swallow: Liquid Intake Recommendation: Thin Liquid Intake Strategies: Unrestricted Solid Food Consistency: Dietary Recommendations: TBD Oral Medication Intake: Whole with Liquid Please contact the pharmacy regarding appropriate crushable or liquid drug formulations that are available whenever modified delivery is recommended. Compensatory Strategies and Precautions to be Taken for Safe Swallow: Sitting Upright (90 deg) Small Bites and Sips Rate of Ingestion Change Supervision While Eating and Drinking for Safe Swallow: None Needed Recommendation for Speech: Inpatient Speech Therapy Comment: WINDOW GLAZIER HELPER to complete evaluation with solid trials when patient is cleared by MD to advance from clear liquid diet. Non Destructive Testing Scientist Clinican/Clinical Fellow: No Supervisory Statement: I have reviewed and agree with the student/clinical fellow's documentation: N/A Speech Language Pathologist: Jackie Catherine M.A., CCC-WINDOW GLAZIER HELPER
--- NOTE | 2023-06-13 15:34 | MHC.CM.PN ---
CM MET WITH PT AND AT BEDSIDE HE LIVES WITH HIS AND IS INDEPENDENT WITH CARE HE HAS NO DME AND NO SERVICES PT DECLINES TO COMPLETE A HCP PCP: JOHNATHAN DOWLING IMM DELIVERED DCP: HOME NO SERVICES VIA PRIVATE TRANSPORT
[2023-06-14] VITALS (7 sets, daily range): BP systolic 116–152; BP diastolic 54–73; PULSE 67–87; RESP 14–18; TEMP 36.2–36.6; O2SAT 96–99
[2023-06-14] MEDS: 0.9 % Sodium Chloride Flush 3 ML SYRINGE IVFLUSH ×4 (00:24→22:41)
[2023-06-14 06:08] LABS: MANUAL DIFF FLAG NO
[2023-06-14 06:13] LABS: Basophils Percent Auto 0.5 % (0-2); Eosinophils Absolute Auto 0.1 X10*3/uL (0.0-0.4); Eosinophils Percent Auto 1.8 % (0-4); Hematocrit 23.2 % (42.0-52.0); Hemoglobin 7.7 g/dl (14.0-18.0); Imm Gran Abs Auto 0.01 X10*3/uL (0.00-0.03); Imm Gran Pct Auto 0.2 % (0.0-0.4); Lymphocytes Absolute Auto 1.1 X10*3/uL (1.2-4.9); Lymphocytes Percent Auto 18.7 % (20-40); Mean Corpuscular HGB Conc 33.2 g/dl (31.0-36.0); Mean Corpuscular Volume 90.3 fL (80.0-98.0); Mean Platelet Volume 9.7 fL (9.4-12.4); Monocytes Absolute Auto 0.7 X10*3/uL (0.1-1.2); Monocytes Percent Auto 12.2 % (2-11); Neutrophils Percent Auto 66.6 % (45-73); Platelet Count 270 X10*3/uL (160-400); Red Blood Count 2.57 X10*6/uL (4.60-5.80); Red Cell Distribution Width 13.5 % (11.0-16.0)
[2023-06-14] MEDS: Pantoprazole Sodium 40 MG/10 ML VIAL IVPUSH ×2 (06:15→16:28)
--- NOTE | 2023-06-14 09:38 | P.CNGI_ITS ---
History of Present Illness Data of Consult Service Date: 06/14/23 Requesting physician: Gwendolyn Krause Primary Care Provider: Connie Atkins MD [facility] Reason for consult: GEJ mass This is a 72-year-old gentleman with no significant past medical history who presented to the hospital for epigastric pain and anemia. Reports sx have been ongoing since december and have gradually progressed ra in the last 3 months. Reports epigastric pain and bloating ra after eating with nausea, early satiety. No dysphagia or regurgitation reported. Weight loss of 10# in 2 months. From the chart, it appears that patient was also seen in urgent care earlier this year for abdominal pain with poor appetite. 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 Imaging in the ER shows: there is heterogeneous partially calcified soft tissue mass at the gastroesophageal junction with circumferential wall thickening of the distal esophagus concerning for possible pathologic process, roughly measures 4.2 x 2.9 cm refer image 9 series of 3, this may be further characterize with follow-up endoscopy and/or assessment with barium esophagogram. In addition was also noted to have other abnormalities including R hydronephrosis suspicious for malignant process at the ureter. Of note, patient had a Cologuard test that was positive in October 2022 but pt does not recall getting informed about this. Review of Systems 2 Review of Systems: Yes all other systems are reviewed and are negative [facility] Past Medical History Medical History (Updated 06/14/23 @ 10:33 by Tonia Waggoner MD) Hiatal hernia Erectile dysfunction Family History Family History (Updated 10/02/22 @ 11:27 by Connie Atkins MD) Father Diabetes mellitus, Onset Age: 70 Mother No problems noted. Brother Acute myocardial infarction, Onset Age: 52 Surgical History Surgical History (Updated 10/02/22 @ 11:25 by Connie Atkins MD) No pertinent past surgical history Social History Social History Household Members: Spouse Housing: House Do you presently have visiting nurse or other home services: No Patient Tobacco Use Status: Former Tobacco user Smoked in Last 30 Days: No e-Cigarette/Vaping Use: Never Used Patient Interested in Nicotine Replacement: No Second Hand Smoke Exposure: No Use of substances other than those prescribed or required for medical reasons: No Currently Displaying Signs/Symptoms of Drug Intoxication Withdrawal: No Any prior treatment program specific to substance use: No Have you been hit, kicked, punched, or otherwise hurt by someone within the past year? If so, by whom?: No Do you feel safe in your current relationship?: Yes Is there a partner from a previous relationship who is making you feel unsafe now?: No Are you made to feel afraid or neglected: No Advance Directives: No Advance Directives Information Provided: No Do you have thoughts of harming others: None Do you have a plan to hurt others: No Plan Recently lost weight without trying: Unsure Eating poorly because of decreased appetite: Yes Nutrition Risks: Poor intake 0-25% >4 days Poor oral hygiene: No service: No Current occupational status: employed Cognitive needs: No Hearing needs: No Vision needs: Yes Meds Allergies Allergy/AdvReac Type Severity Reaction Status Date / Time No Known Allergies Allergy Verified 06/12/23 14:45 Active Medications: Current Medications Acetaminophen (Acetaminophen 325 Mg Tablet) 650 mg PO Q6H PRN PRN Reason: Pain, Mild (Pain Scale 1-3) Benzonatate (Benzonatate 100 Mg Capsule) 100 mg PO TID PRN PRN Reason: Cough Docusate Sodium (Docusate Sodium 100 Mg Capsule) 100 mg PO DAILY PRN PRN Reason: Constipation Melatonin (Melatonin 3 Mg Tablet) 6 mg PO BEDTIME PRN PRN Reason: Insomnia Ondansetron HCl (Ondansetron Hcl 4 Mg/2 Ml Vial) 4 mg IVPUSH Q8H PRN PRN Reason: Nausea and Vomiting Pantoprazole Sodium (Pantoprazole Sodium 40 Mg/10 Ml Vial) 40 mg IVPUSH BID@0630,1630 [facility] Last Admin: 06/14/23 06:15 Dose: 40 mg Sodium Chloride (0.9 % Sodium Chloride Flush 3 Ml Syringe) [facility] Last Admin: 06/14/23 09:15 Dose: 3 ml Home Medications Medication Instructions Recorded Confirmed Last Taken Type Candibactin 1 cap PO DAILY 06/12/23 06/12/23 Unknown History Ortho Biotic 1 cap PO DAILY 06/12/23 06/12/23 Unknown History Spectrazyme Metagest 1 cap PO DAILY 06/12/23 06/12/23 Unknown History Physical Exam 2 Vital Signs: Vital Signs: Last Vital Signs Temp 97.4 F 06/14/23 07:41 Pulse 67 06/14/23 07:41 Resp 14 06/14/23 07:41 BP 141/67 H 06/14/23 07:41 Pulse Ox 98 06/14/23 07:41 O2 Del Method Room Air 06/14/23 07:41 BMI result Body Mass Index 24.1 Gen appear: NAD HEENT: mild bitemporal wasting Chest: CTA CVS: Regular S1/S2 Abd: soft, nontender, mildly distended, bowel sounds + Ext: no peripheral edema Neuro: A/Ox3, noted to move all extremities spontaneously Psych: interacting appropriately Results Labs 06/14/23 06:03 06/13/23 05:57 Labs: Short CBC 06/13/23 06/14/23 06/14/23 Range/Units 12:02 06:03 06:03 WBC Cancelled 6.0 Hgb 8.1 L D Cancelled (14.0-18.0) g/dl Hct 24.7 L D (42.0-52.0) % Plt Count 06/14/23 06/14/23 06/14/23 Range/Units 06:03 06:03 06:03 WBC Hgb 7.7 L (14.0-18.0) g/dl Hct Cancelled 23.2 L (42.0-52.0) % Plt Count Cancelled 270 Assessment and Plan (1) Abdominal pain: Qualifiers: Abdominal location: epigastric Qualified Code(s): R10.13 - Epigastric pain Status: Acute (2) Anemia: Qualifiers: Anemia type: unspecified type Qualified Code(s): D64.9 - Anemia, unspecified Status: Acute (3) Abnormal finding on imaging: Status: Acute (4) Mass of gastroesophageal junction: Status: Acute Plan Images personally reviewed - overall thickened gastric wall with mixed soft tissue and calcified mass just at or below GE junction - highly suspicious for malignant process. No enlarged LN noted on my review. Plan: - EGD to be done today - Please keep pt NPO - Pt will also need urology consultation for ?? urothelial mass - Pt was also informed of positive cologuard in October 2022 - timing and indication of follow up colo will depend on overall clinical course Thank you for allowing me to participate in his care. Please do not hesitate to reach out for questions or concerns. Procedures Date of Service Date of Service: 06/14/23
--- NOTE | 2023-06-14 09:54 | HO.ANESPROP2 ---
HPI - Anesthesia Eval Consult details Narrative: GE junction mass PMFSH Active Problems Active Problems: All Active Problems (Updated 06/13/23 @ 09:23 by Gwendolyn Krause MD) Acute GI bleeding (Acute) Abdominal pain (Acute) Anemia (Acute) Erectile dysfunction (Acute) Past Medical History Medical History (Updated 06/13/23 @ 09:23 by Gwendolyn Krause MD) Hiatal hernia Erectile dysfunction Family History Family History (Updated 10/02/22 @ 11:27 by Connie Atkins MD) Father Diabetes mellitus, Onset Age: 70 Mother No problems noted. Brother Acute myocardial infarction, Onset Age: 52 Family history of problems with anesthesia: No Surgical History Surgical History (Updated 10/02/22 @ 11:25 by Connie Atkins MD) No pertinent past surgical history History of Problems with Anesthesia: No Social History Social History Household Members: Spouse Housing: House Do you presently have visiting nurse or other home services: No Patient Tobacco Use Status: Former Tobacco user Smoked in Last 30 Days: No e-Cigarette/Vaping Use: Never Used Patient Interested in Nicotine Replacement: No Second Hand Smoke Exposure: No Use of substances other than those prescribed or required for medical reasons: No Currently Displaying Signs/Symptoms of Drug Intoxication Withdrawal: No Any prior treatment program specific to substance use: No Have you been hit, kicked, punched, or otherwise hurt by someone within the past year? If so, by whom?: No Do you feel safe in your current relationship?: Yes Is there a partner from a previous relationship who is making you feel unsafe now?: No Are you made to feel afraid or neglected: No Advance Directives: No Advance Directives Information Provided: No Do you have thoughts of harming others: None Do you have a plan to hurt others: No Plan Recently lost weight without trying: Unsure Eating poorly because of decreased appetite: Yes Nutrition Risks: Poor intake 0-25% >4 days Poor oral hygiene: No service: No Current occupational status: employed Cognitive needs: No Hearing needs: No Vision needs: Yes Meds Allergies Allergy/AdvReac Type Severity Reaction Status Date / Time No Known Allergies Allergy Verified 06/12/23 14:45 Active Medications: Current Medications Acetaminophen (Acetaminophen 325 Mg Tablet) 650 mg PO Q6H PRN PRN Reason: Pain, Mild (Pain Scale 1-3) Benzonatate (Benzonatate 100 Mg Capsule) 100 mg PO TID PRN PRN Reason: Cough Docusate Sodium (Docusate Sodium 100 Mg Capsule) 100 mg PO DAILY PRN PRN Reason: Constipation Melatonin (Melatonin 3 Mg Tablet) 6 mg PO BEDTIME PRN PRN Reason: Insomnia Ondansetron HCl (Ondansetron Hcl 4 Mg/2 Ml Vial) 4 mg IVPUSH Q8H PRN PRN Reason: Nausea and Vomiting Pantoprazole Sodium (Pantoprazole Sodium 40 Mg/10 Ml Vial) 40 mg IVPUSH BID@0630,1630 [facility] Last Admin: 06/14/23 06:15 Dose: 40 mg Sodium Chloride (0.9 % Sodium Chloride Flush 3 Ml Syringe) 3 ml IVFLUSH QSHIFT [facility] Last Admin: 06/14/23 09:15 Dose: 3 ml Home Medications Medication Instructions Recorded Confirmed Last Taken Type Candibactin 1 cap PO DAILY 06/12/23 06/12/23 Unknown History Ortho Biotic 1 cap PO DAILY 06/12/23 06/12/23 Unknown History Spectrazyme Metagest 1 cap PO DAILY 06/12/23 06/12/23 Unknown History Exam Height,Weight and Vital Signs: Height 5 ft 7 in Weight 69.8 kg Last Vital Signs Temp 97.4 F 06/14/23 07:41 Pulse 67 06/14/23 07:41 Resp 14 06/14/23 07:41 BP 141/67 H 06/14/23 07:41 Pulse Ox 98 06/14/23 07:41 O2 Del Method Room Air 06/14/23 07:41 Pertinent Lab Results Pertinent Lab Results: Laboratory Tests 06/12/23 06/12/23 06/13/23 18:21 22:12 05:57 WBC 7.2 6.1 RBC 1.93 L 2.16 L Hgb 6.0 L* 6.7 L* Hct 18.2 L* 20.2 L* MCV 94.3 93.5 MCH 31.1 31.0 MCHC 33.0 33.2 RDW 12.7 12.6 Plt Count 328 283 MPV 9.9 9.7 Immature Gran % (Auto) 0.3 Neut % (Auto) 72.2 Lymph % (Auto) 16.9 L [place] % (Auto) 9.5 Eos % (Auto) 0.8 Baso % (Auto) 0.3 Lymph # (Auto) 1.2 [place] # (Auto) 0.7 Eos # (Auto) 0.1 Baso # (Auto) 0.0 Abs Immat Gran (auto) 0.02 Absolute Neuts (auto) 5.2 Absolute Nucleated RBC 0.000 0.000 Nucleated RBC % (auto) 0.0 0.0 PT 13.0 INR 1.1 APTT 30.1 Sodium 134 L 135 Potassium 3.8 4.2 Chloride 101 104 Carbon Dioxide 25 26 Anion Gap 12 9 L BUN 19 H 15 Creatinine 1.12 1.18 Estim Creat Clear Calc 57.3 54.4 Estimated GFR > 60 > 60 Random Glucose 106 103 Calcium 9.7 D 9.1 D Magnesium 1.8 Total Bilirubin 0.2 AST 21 ALT 20 Alkaline Phosphatase 42 Troponin I High Sens 7.6 Total Protein 6.9 Albumin 3.8 Lipase 87 H Stool Occult Blood POSITIVE Blood Type AB Negative Antibody Screen NEGATIVE Crossmatch See Detail 06/13/23 06/14/23 06/14/23 12:02 06:03 06:03 WBC Cancelled 6.0 RBC Cancelled Hgb 8.1 L D Hct 24.7 L D MCV MCH MCHC RDW Plt Count MPV Immature Gran % (Auto) Neut % (Auto) Lymph % (Auto) [place] % (Auto) Eos % (Auto) Baso % (Auto) Lymph # (Auto) [place] # (Auto) Eos # (Auto) Baso # (Auto) Abs Immat Gran (auto) Absolute Neuts (auto) Absolute Nucleated RBC Nucleated RBC % (auto) PT INR APTT Sodium Potassium Chloride Carbon Dioxide Anion Gap BUN Creatinine Estim Creat Clear Calc Estimated GFR Random Glucose Calcium Magnesium Total Bilirubin AST ALT Alkaline Phosphatase Troponin I High Sens Total Protein Albumin Lipase Stool Occult Blood Blood Type Antibody Screen Crossmatch 06/14/23 06/14/23 06/14/23 06:03 06:03 06:03 WBC RBC 2.57 L Hgb Cancelled 7.7 L Hct Cancelled 23.2 L MCV Cancelled MCH MCHC RDW Plt Count MPV Immature Gran % (Auto) Neut % (Auto) Lymph % (Auto) [place] % (Auto) Eos % (Auto) Baso % (Auto) Lymph # (Auto) [place] # (Auto) Eos # (Auto) Baso # (Auto) Abs Immat Gran (auto) Absolute Neuts (auto) Absolute Nucleated RBC Nucleated RBC % (auto) PT INR APTT Sodium Potassium Chloride Carbon Dioxide Anion Gap BUN Creatinine Estim Creat Clear Calc Estimated GFR Random Glucose Calcium Magnesium Total Bilirubin AST ALT Alkaline Phosphatase Troponin I High Sens Total Protein Albumin Lipase Stool Occult Blood Blood Type Antibody Screen Crossmatch 06/14/23 06/14/23 06/14/23 06:03 06:03 06:03 WBC RBC Hgb Hct MCV 90.3 MCH Cancelled 30.0 MCHC Cancelled 33.2 RDW Cancelled Plt Count MPV Immature Gran % (Auto) Neut % (Auto) Lymph % (Auto) [place] % (Auto) Eos % (Auto) Baso % (Auto) Lymph # (Auto) [place] # (Auto) Eos # (Auto) Baso # (Auto) Abs Immat Gran (auto) Absolute Neuts (auto) Absolute Nucleated RBC Nucleated RBC % (auto) PT INR APTT Sodium Potassium Chloride Carbon Dioxide Anion Gap BUN Creatinine Estim Creat Clear Calc Estimated GFR Random Glucose Calcium Magnesium Total Bilirubin AST ALT Alkaline Phosphatase Troponin I High Sens Total Protein Albumin Lipase Stool Occult Blood Blood Type Antibody Screen Crossmatch 06/14/23 06/14/23 06/14/23 06:03 06:03 06:03 WBC RBC Hgb Hct MCV MCH MCHC RDW 13.5 Plt Count Cancelled 270 MPV Cancelled 9.7 Immature Gran % (Auto) 0.2 Neut % (Auto) 66.6 Lymph % (Auto) 18.7 L [place] % (Auto) 12.2 H Eos % (Auto) 1.8 Baso % (Auto) 0.5 Lymph # (Auto) 1.1 L [place] # (Auto) 0.7 Eos # (Auto) 0.1 Baso # (Auto) 0.0 Abs Immat Gran (auto) 0.01 Absolute Neuts (auto) 4.0 Absolute Nucleated RBC Cancelled Nucleated RBC % (auto) PT INR APTT Sodium Potassium Chloride Carbon Dioxide Anion Gap BUN Creatinine Estim Creat Clear Calc Estimated GFR Random Glucose Calcium Magnesium Total Bilirubin AST ALT Alkaline Phosphatase Troponin I High Sens Total Protein Albumin Lipase Stool Occult Blood Blood Type Antibody Screen Crossmatch 06/14/23 06/14/23 06:03 06:03 WBC RBC Hgb Hct MCV MCH MCHC RDW Plt Count MPV Immature Gran % (Auto) Neut % (Auto) Lymph % (Auto) [place] % (Auto) Eos % (Auto) Baso % (Auto) Lymph # (Auto) [place] # (Auto) Eos # (Auto) Baso # (Auto) Abs Immat Gran (auto) Absolute Neuts (auto) Absolute Nucleated RBC 0.000 Nucleated RBC % (auto) Cancelled 0.0 PT INR APTT Sodium Potassium Chloride Carbon Dioxide Anion Gap BUN Creatinine Estim Creat Clear Calc Estimated GFR Random Glucose Calcium Magnesium Total Bilirubin AST ALT Alkaline Phosphatase Troponin I High Sens Total Protein Albumin Lipase Stool Occult Blood Blood Type Antibody Screen Crossmatch Airway Mallampati Class: II TM Dist: >3cm Neck ROM: Full Loose/Missing/Broken Teeth: No Heart: RRR Lungs: CTA Assessment and Plan Assessment Anesthesia Assessment: Anesthesia Plan Discussed and Chart Reviewed Final Anesthetic Review Family History of Problems with Anesthesia: No History of Problems with Anesthesia: No NPO: Yes ASA Class: II and Emergency Final Preanesthetic Review: No Changes in Pt Med Stat, Meds/Allgs Chart Reviewed, Consent Obtained/Reviewed and Anes Risks/Benef Reviewed Patient Risk: Intermediate Procedure Risk: Low Anesthetic Plan Anesthetic Plan: MAC: Disposition: Standard PACU
--- NOTE | 2023-06-14 10:21 | HO.PM.IMPN ---
Subjective Subjective Date of Service: 06/14/23 Interval History: No significant nursing events overnight. Hemoglobin 7.7 this a.m.. Patient to undergo EGD today Review of Systems All review of systems reviewed except as above Constitutional Constitutional: Reports no additional constitutional complaints Cardiovascular Cardiovascular: Reports no additional cardiovascular complaints Respiratory Respiratory: Reports no additional respiratory complaints Genitourinary Genitourinary: Reports no additional male genitourinary complaints Physical Exam Vital Signs: Vital Signs: Last Vital Signs Temp 97.4 F 06/14/23 07:41 Pulse 67 06/14/23 07:41 Resp 14 06/14/23 07:41 BP 141/67 H 06/14/23 07:41 Pulse Ox 98 06/14/23 07:41 O2 Del Method Room Air 06/14/23 07:41 BMI result Body Mass Index 24.1 Middle-aged male lying in bed in no distress Neck supple, no JVD Regular rate and rhythm, S1-S2 heard Regular breath sounds bilaterally, no wheezing or crackles appreciated Abdomen soft nontender, no guarding, no rigidity Patient is awake, alert and oriented to self, place, time and person ; no focal motor deficit Psych: Normal mood No pedal edema Objective Data Active Medications Acetaminophen (Acetaminophen 325 Mg Tablet) 650 mg PO Q6H PRN PRN Reason: Pain, Mild (Pain Scale 1-3) Benzonatate (Benzonatate 100 Mg Capsule) 100 mg PO TID PRN PRN Reason: Cough Docusate Sodium (Docusate Sodium 100 Mg Capsule) 100 mg PO DAILY PRN PRN Reason: Constipation Melatonin (Melatonin 3 Mg Tablet) 6 mg PO BEDTIME PRN PRN Reason: Insomnia Ondansetron HCl (Ondansetron Hcl 4 Mg/2 Ml Vial) 4 mg IVPUSH Q8H PRN PRN Reason: Nausea and Vomiting Ondansetron HCl (Ondansetron Hcl 4 Mg/2 Ml Vial) 4 mg IVPUSH ONCE PRN PRN Reason: Nausea and Vomiting Pantoprazole Sodium (Pantoprazole Sodium 40 Mg/10 Ml Vial) 40 mg IVPUSH BID@0630,1630 [facility] Last Admin: 06/14/23 06:15 Dose: 40 mg Documented By: CAROLINE Sodium Chloride (0.9 % Sodium Chloride Flush 3 Ml Syringe) 3 ml IVFLUSH QSHIFT [facility] Last Admin: 06/14/23 09:15 Dose: 3 ml Documented By: MARIO Labs 06/14/23 06:03 06/13/23 05:57 Labs: Laboratory Results - last 24 hr 06/12/23 06/14/23 06/14/23 18:21 06:03 06:03 MCV Cancelled 90.3 MCH Cancelled MCHC RDW Plt Count MPV Immature Gran % (Auto) Neut % (Auto) Lymph % (Auto) [place] % (Auto) Eos % (Auto) Baso % (Auto) Lymph # (Auto) [place] # (Auto) Eos # (Auto) Baso # (Auto) Abs Immat Gran (auto) Absolute Neuts (auto) Absolute Nucleated RBC Nucleated RBC % (auto) Crossmatch See Detail 06/14/23 06/14/23 06/14/23 06:03 06:03 06:03 MCV MCH 30.0 MCHC Cancelled 33.2 RDW Cancelled 13.5 Plt Count Cancelled MPV Immature Gran % (Auto) Neut % (Auto) Lymph % (Auto) [place] % (Auto) Eos % (Auto) Baso % (Auto) Lymph # (Auto) [place] # (Auto) Eos # (Auto) Baso # (Auto) Abs Immat Gran (auto) Absolute Neuts (auto) Absolute Nucleated RBC Nucleated RBC % (auto) Crossmatch 06/14/23 06/14/23 06/14/23 06:03 06:03 06:03 MCV MCH MCHC RDW Plt Count 270 MPV Cancelled 9.7 Immature Gran % (Auto) 0.2 Neut % (Auto) 66.6 Lymph % (Auto) 18.7 L [place] % (Auto) 12.2 H Eos % (Auto) 1.8 Baso % (Auto) 0.5 Lymph # (Auto) 1.1 L [place] # (Auto) 0.7 Eos # (Auto) 0.1 Baso # (Auto) 0.0 Abs Immat Gran (auto) 0.01 Absolute Neuts (auto) 4.0 Absolute Nucleated RBC Cancelled 0.000 Nucleated RBC % (auto) Cancelled Crossmatch 06/14/23 06:03 MCV MCH MCHC RDW Plt Count MPV Immature Gran % (Auto) Neut % (Auto) Lymph % (Auto) [place] % (Auto) Eos % (Auto) Baso % (Auto) Lymph # (Auto) [place] # (Auto) Eos # (Auto) Baso # (Auto) Abs Immat Gran (auto) Absolute Neuts (auto) Absolute Nucleated RBC Nucleated RBC % (auto) 0.0 Crossmatch Assessment and Plan (1) Acute GI bleeding: Status: Acute Plan Pt is a 72-year-old male with a PMH significant for?congenital hiatal hernia but otherwise healthly who presents to the ED after outpatient labs showed low blood levels. Pt will be admitted to the hospital for treatment and further evaluation of symptomatic anemia likely secondary to GI bleed. Symptomatic anemia Likely secondary to GI bleed CT showing a likely mass at GE junction, esophagus and gastric wall thickening concerning for infiltration Continue Protonix IV 40 mg b.i.d. Plans for EGD today, 06/13 Possible right kidney obstruction/neoplasm CT showing likely right kidney obstruction, moderate to severe hydronephrosis and hydroureter with possible urothelial neoplasm Pt asymptomatic: denies flank pain or changes to bladder habits Urology consult pending Aortic aneurism CT found infrarenal fusiform aortic aneurysm of 4.4 cm Follow-up outpatient with vascular Full Code DVT Prophylaxis: Pneumatic boots due to symptomatic anemia Pt will require a hospitalization of at least two nights for treatment and further evaluation of symptomatic anemia likely secondary to GI bleed. Patient required hospitalization for close monitoring of blood levels, transfusion as necessary, specialist consultation, and further imaging. Quality Stroke Does the patient have a stroke diagnosis?: No VTE Prior VTE?: No VTE Risk Level:: Medical - moderate - high VTE Device Contraindication: N/A - Device Ordered VTE Drug Contraindication: Treatment Not Indicated
--- NOTE | 2023-06-14 10:40 | P.OP_ITS ---
Operative Note Operative Note Date of Service: 06/14/23 Narrative: Procedure: Esophagogastroduodenoscopy Endoscopist: Tonia Waggoner MD Indication: GE junction mass Anesthesia Provider: Dr Mathew Marshall Anesthesia Type: MAC ?? EGD Procedure:?? The procedure, indications, preparation and potential complications were revie wed with the patient, who indicated understanding and gave written informed consent to proceed. A physical exam was performed. The endoscope was introduced through the mouth, and advanced to the second part of duodenum. The mucosa was carefully examined on slow withdrawal of the endoscope. The patient tolerated the procedure well. There were no immediate complications.? ? EGD Findings:? * Esophagus:? Normal mucosa noted in the entire esophagus. The Z line was at 39cm and regular. * Stomach:? There was a circumferential mass arising just below GE junction in the cardia extending from 40 to 43 cm with a prominent outgrowth along the lesser curvature. The mass was minimally obstructing the GEJ, gastroscope could traverse easily past it. Normal mucosa was noted in the remaining stomach. Cold forceps biopsies were taken from just below the GE junction in anterograde view as as well as from the circumferential growth in cardia in retroflexed view. * Duodenum:? Mild erythema and erosions in second portion of the duodenum. Remaining mucosa normal to extent examined. EGD Impressions:? * Normal esophageal mucosa * Cardia mass arising just below GE junction (biopsy) * Duodenitis ?? Recommendations:?? * Follow biopsy results. * Barium swallow with UGIS for further characterization of mass * Further management will depend on path
--- NOTE | 2023-06-14 14:00 | P.CNUR_ITS ---
History of Present Illness Consult details Consult date: 06/14/23 Narrative: CC: right hydronephrosis 72-year-old male Present with low hematocrit 23.2 Imaging performed Question of GI thickening Cigarette smoker for many years CT - moderate to severe right renal hydronephrosis and hydroureter with no obstructing stone, but soft tissue thickening with a possible soft tissue mass of the right ureteral vesicular junction 1.8 x 1.1 cm concerning for possible urethral neoplasm; perinephric fat stranding around the right kidney and low- attenuation of its cortex suggestive of a high degree of obstruction Needs - urine cystology, cystoscopy with right retrograde Review of Systems 2 Constitutional: Constitutional: Reports as per HPI and Reports no additional constitutional complaints Cardiovascular: Cardiovascular: Reports as per HPI and Reports no additional cardiovascular complaints Respiratory: Respiratory: Reports as per HPI and Reports no additional respiratory complaints Gastrointestinal: Gastrointestinal: Reports as per HPI and Reports no additional gastrointestinal complaints Genitourinary: Genitourinary: Reports as per HPI Musculoskeletal: Musculoskeletal: Reports no additional musculoskeletal complaints and Reports as per HPI Neurologic: Reports system reviewed and no additional complaints, except as documented and Reports as per HPI COUNTS INCLUDE 234 BEDS AT THE [facility] Past Medical History Medical History (Updated 06/14/23 @ 14:05 by Mathew Cueva MD) Hiatal hernia Erectile dysfunction Family History Family History (Updated 10/02/22 @ 11:27 by Connie Atkins MD) Father Diabetes mellitus, Onset Age: 70 Mother No problems noted. Brother Acute myocardial infarction, Onset Age: 52 Surgical History Surgical History (Updated 10/02/22 @ 11:25 by Connie Atkins MD) No pertinent past surgical history Social History Social History Household Members: Spouse Housing: House Do you presently have visiting nurse or other home services: No Patient Tobacco Use Status: Former Tobacco user Smoked in Last 30 Days: No e-Cigarette/Vaping Use: Never Used Patient Interested in Nicotine Replacement: No Second Hand Smoke Exposure: No Use of substances other than those prescribed or required for medical reasons: No Currently Displaying Signs/Symptoms of Drug Intoxication Withdrawal: No Any prior treatment program specific to substance use: No Have you been hit, kicked, punched, or otherwise hurt by someone within the past year? If so, by whom?: No Do you feel safe in your current relationship?: Yes Is there a partner from a previous relationship who is making you feel unsafe now?: No Are you made to feel afraid or neglected: No Advance Directives: No Advance Directives Information Provided: No Do you have thoughts of harming others: None Do you have a plan to hurt others: No Plan Recently lost weight without trying: Unsure Eating poorly because of decreased appetite: Yes Nutrition Risks: Poor intake 0-25% >4 days Poor oral hygiene: No service: No Current occupational status: employed Cognitive needs: No Hearing needs: No Vision needs: Yes Meds Allergies Allergy/AdvReac Type Severity Reaction Status Date / Time No Known Allergies Allergy Verified 06/12/23 14:45 Active Medications: Current Medications Acetaminophen (Acetaminophen 325 Mg Tablet) 650 mg PO Q6H PRN PRN Reason: Pain, Mild (Pain Scale 1-3) Benzonatate (Benzonatate 100 Mg Capsule) 100 mg PO TID PRN PRN Reason: Cough Docusate Sodium (Docusate Sodium 100 Mg Capsule) 100 mg PO DAILY PRN PRN Reason: Constipation Melatonin (Melatonin 3 Mg Tablet) 6 mg PO BEDTIME PRN PRN Reason: Insomnia Ondansetron HCl (Ondansetron Hcl 4 Mg/2 Ml Vial) 4 mg IVPUSH Q8H PRN PRN Reason: Nausea and Vomiting Ondansetron HCl (Ondansetron Hcl 4 Mg/2 Ml Vial) 4 mg IVPUSH ONCE PRN PRN Reason: Nausea and Vomiting Pantoprazole Sodium (Pantoprazole Sodium 40 Mg/10 Ml Vial) 40 mg IVPUSH BID@0630,1630 [facility] Last Admin: 06/14/23 06:15 Dose: 40 mg Sodium Chloride (0.9 % Sodium Chloride Flush 3 Ml Syringe) 3 ml IVFLUSH QSHIFT [facility] Last Admin: 06/14/23 09:15 Dose: 3 ml Home Medications Medication Instructions Recorded Confirmed Last Taken Type Candibactin 1 cap PO DAILY 06/12/23 06/12/23 Unknown History Ortho Biotic 1 cap PO DAILY 06/12/23 06/12/23 Unknown History Spectrazyme Metagest 1 cap PO DAILY 06/12/23 06/12/23 Unknown History Physical Exam 2 Vital Signs: Vital Signs: Last Vital Signs Temp 97.2 F 06/14/23 11:11 Pulse 71 06/14/23 11:11 Resp 16 06/14/23 11:11 BP 137/65 06/14/23 11:11 Pulse Ox 98 06/14/23 11:11 O2 Del Method Room Air 06/14/23 11:11 BMI result Body Mass Index 24.1 Const: General: cooperative, healthy appearing, comfortable and no acute distress Orientation/consciousness: patient oriented x3 HEENT: Face and sinus: Yes normal facial exam Mouth: moist mucous membranes Neck: Neck: Yes normal visual inspection, Yes full ROM and Yes trachea midline Chest: Chest palpation & inspection: normal inspection of the chest Resp: Effort & Inspection: normal respiratory effort, able to speak in complete sentences and no respiratory distress GI: Inspection: Yes normal to inspection Back/Spine/Pelvis: Cervical Spine: normal cervical lordosis Thoracic/Lumbar Spine: thoracic and lumbar spine normal to inspection Skin: General skin exam: no rashes or lesions noted Neuro: General: patient oriented x3, tone normal and moves all extremities Extrem: General: Yes normal to inspection and Yes capillary refill normal Results Labs 06/14/23 06:03 06/13/23 05:57 Labs: Abnormal lab results 06/14/23 Range/Units 06:03 RBC 2.57 L (4.60-5.80) X10*6/uL Hgb 7.7 L (14.0-18.0) g/dl Hct 23.2 L (42.0-52.0) % Lymph % (Auto) 18.7 L (20-40) % [place] % (Auto) 12.2 H (2-11) % Lymph # (Auto) 1.1 L (1.2-4.9) X10*3/uL Short CBC 06/14/23 06/14/23 06/14/23 Range/Units 06:03 06:03 06:03 WBC Cancelled 6.0 Hgb Cancelled 7.7 L Hct Cancelled Plt Count 06/14/23 06/14/23 Range/Units 06:03 06:03 WBC Hgb Hct 23.2 L Plt Count Cancelled 270 All other labs normal. Assessment and Plan (1) Bladder mass: Status: Acute (2) Hydronephrosis: Status: Acute Plan Risks, benefits and alternatives to therapy were discussed. These include but are not limited to infection, bleeding, damage to local organs and tissues, need for further interventions. Anesthetic risks regarding cardiac arrhythmia, blood clots, and potential mortality were discussed. The patient understands the typical recovery time and the outpatient nature of the procedure. After consideration of these risks the patient gives full informed consent and they wish to move ahead with the procedure. Cystoscopy with right retrograde and possible biopsy Procedures Date of Service Date of Service: 06/14/23
[2023-06-14 15:44] LABS: Urine Cytology See Pathology rpt
[2023-06-15] VITALS (10 sets, daily range): BP systolic 119–155; BP diastolic 62–79; PULSE 70–84; RESP 15–20; TEMP 36.4–37; O2SAT 96–100
[2023-06-15 05:36] LABS: MANUAL DIFF FLAG NO
[2023-06-15 05:41] LABS: Basophils Percent Auto 0.5 % (0-2); Eosinophils Absolute Auto 0.1 X10*3/uL (0.0-0.4); Eosinophils Percent Auto 2.1 % (0-4); Hematocrit 24.3 % (42.0-52.0); Hemoglobin 8.1 g/dl (14.0-18.0); Imm Gran Abs Auto 0.02 X10*3/uL (0.00-0.03); Imm Gran Pct Auto 0.3 % (0.0-0.4); Lymphocytes Absolute Auto 1.1 X10*3/uL (1.2-4.9); Lymphocytes Percent Auto 17.8 % (20-40); Mean Corpuscular HGB Conc 33.3 g/dl (31.0-36.0); Mean Corpuscular Hemoglobin 30.7 pg (27.0-33.0); Mean Platelet Volume 9.8 fL (9.4-12.4); Monocytes Absolute Auto 0.7 X10*3/uL (0.1-1.2); Neutrophils Absolute Auto 4.1 x10*3/uL (2.0-8.3); Neutrophils Percent Auto 67.3 % (45-73); Platelet Count 280 X10*3/uL (160-400); Red Blood Count 2.64 X10*6/uL (4.60-5.80); Red Cell Distribution Width 13.3 % (11.0-16.0); White Blood Count 6.1 X10*3/uL (4.8-10.8)
[2023-06-15 06:00] LABS: Anion Gap 11 (12-20); Blood Urea Nitrogen 10 mg/dL (9-16); Calcium 8.6 mg/dL (8.4-10.2); Carbon Dioxide 25 mmol/L (22-29); Chloride 106 mmol/L (96-108); Creatinine Clr Calc Pharmacy 60.6; Estimated Glomerular Filt Rate > 60; Glucose Random 105 mg/dL (60-115); Potassium 3.8 mmol/L (3.3-5.1); Sodium 138 mmol/L (135-145)
[2023-06-15] MEDS: Pantoprazole Sodium 40 MG/10 ML VIAL IVPUSH ×2 (06:25→17:12)
[2023-06-15] MEDS: 0.9 % Sodium Chloride Flush 3 ML SYRINGE IVFLUSH ×2 (07:11→17:12)
--- NOTE | 2023-06-15 08:54 | MHC.SLORD ---
Speech Language Pathology Order Status: Pt is NPO for procedure. [employer] BDE deferred.
--- NOTE | 2023-06-15 11:12 | HO.PM.IMPN ---
Subjective Subjective Date of Service: 06/15/23 Interval History: Follow up anemia No significant nursing events overnight. no pain or bleeding Review of Systems All review of systems reviewed except as above Constitutional Constitutional: Reports no additional constitutional complaints Cardiovascular Cardiovascular: Reports no additional cardiovascular complaints Respiratory Respiratory: Reports no additional respiratory complaints Genitourinary Genitourinary: Reports no additional male genitourinary complaints Physical Exam Vital Signs: Vital Signs: Last Vital Signs Temp 97.9 F 06/15/23 07:11 Pulse 76 06/15/23 07:11 Resp 18 06/15/23 07:11 BP 119/65 06/15/23 07:11 Pulse Ox 100 06/15/23 07:11 O2 Del Method Room Air 06/15/23 07:11 BMI result Body Mass Index 24.1 Appearing in no acute distress lung sounds are clear to auscultation heart regular rate rhythm, clear S1, S2 positive bowel sounds, abdomen is soft, nontender neuro patient is alert x3, no focal deficits Objective Data Active Medications Acetaminophen (Acetaminophen 325 Mg Tablet) 650 mg PO Q6H PRN PRN Reason: Pain, Mild (Pain Scale 1-3) Benzonatate (Benzonatate 100 Mg Capsule) 100 mg PO TID PRN PRN Reason: Cough Docusate Sodium (Docusate Sodium 100 Mg Capsule) 100 mg PO DAILY PRN PRN Reason: Constipation Melatonin (Melatonin 3 Mg Tablet) 6 mg PO BEDTIME PRN PRN Reason: Insomnia Ondansetron HCl (Ondansetron Hcl 4 Mg/2 Ml Vial) 4 mg IVPUSH Q8H PRN PRN Reason: Nausea and Vomiting Ondansetron HCl (Ondansetron Hcl 4 Mg/2 Ml Vial) 4 mg IVPUSH ONCE PRN PRN Reason: Nausea and Vomiting Pantoprazole Sodium (Pantoprazole Sodium 40 Mg/10 Ml Vial) 40 mg IVPUSH BID@0630,1630 [facility] Last Admin: 06/15/23 06:25 Dose: 40 mg Documented By: REBECA Sodium Chloride (0.9 % Sodium Chloride Flush 3 Ml Syringe) 3 ml IVFLUSH QSHIFT [facility] Last Admin: 06/15/23 07:11 Dose: 3 ml Documented By: KATHI Labs 06/15/23 05:27 06/15/23 05:27 Labs: Laboratory Results - last 24 hr 06/15/23 06/15/23 06/15/23 05:27 05:27 05:27 MCV Cancelled 92.0 MCH Cancelled 30.7 MCHC Cancelled RDW Plt Count MPV Immature Gran % (Auto) Neut % (Auto) Lymph % (Auto) [place] % (Auto) Eos % (Auto) Baso % (Auto) Lymph # (Auto) [place] # (Auto) Eos # (Auto) Baso # (Auto) Abs Immat Gran (auto) Absolute Neuts (auto) Absolute Nucleated RBC Nucleated RBC % (auto) Anion Gap Estim Creat Clear Calc Estimated GFR Random Glucose Calcium 06/15/23 06/15/23 06/15/23 05:27 05:27 05:27 MCV MCH MCHC 33.3 RDW Cancelled 13.3 Plt Count Cancelled 280 MPV Cancelled Immature Gran % (Auto) Neut % (Auto) Lymph % (Auto) [place] % (Auto) Eos % (Auto) Baso % (Auto) Lymph # (Auto) [place] # (Auto) Eos # (Auto) Baso # (Auto) Abs Immat Gran (auto) Absolute Neuts (auto) Absolute Nucleated RBC Nucleated RBC % (auto) Anion Gap Estim Creat Clear Calc Estimated GFR Random Glucose Calcium 06/15/23 06/15/23 06/15/23 05:27 05:27 05:27 MCV MCH MCHC RDW Plt Count MPV 9.8 Immature Gran % (Auto) 0.3 Neut % (Auto) 67.3 Lymph % (Auto) 17.8 L [place] % (Auto) 12.0 H Eos % (Auto) 2.1 Baso % (Auto) 0.5 Lymph # (Auto) 1.1 L [place] # (Auto) 0.7 Eos # (Auto) 0.1 Baso # (Auto) 0.0 Abs Immat Gran (auto) 0.02 Absolute Neuts (auto) 4.1 Absolute Nucleated RBC Cancelled 0.000 Nucleated RBC % (auto) Cancelled 0.0 Anion Gap 11 L Estim Creat Clear Calc 60.6 Estimated GFR > 60 Random Glucose 105 Calcium 8.6 Assessment and Plan (1) Acute GI bleeding: Status: Acute Plan Pt is a 72-year-old male with a PMH significant for?congenital hiatal hernia but otherwise healthly who presents to the ED after outpatient labs showed low blood levels. Pt will be admitted to the hospital for treatment and further evaluation of symptomatic anemia likely secondary to GI bleed. Symptomatic anemia Stable H&H s/p [address] showing a likely mass at GE junction, esophagus and gastric wall thickening concerning for infiltration Continue Protonix IV 40 mg b.i.d. s/p EGD> normal mucosa noted to esophagus, mass minimally obstructing the GEJ biopsy taken, duodenitis, follow biopsy results, barium swallow with UGIS for further characterization of mass Barium swallow scheduled for tomorrow Possible right kidney obstruction/neoplasm CT showing likely right kidney obstruction, moderate to severe hydronephrosis and hydroureter with possible urothelial neoplasm Pt asymptomatic: denies flank pain or changes to bladder habits Urology consult> cystoscopy today Aortic aneurism CT found infrarenal fusiform aortic aneurysm of 4.4 cm Follow-up outpatient with vascular Full Code Attending Dr. Perry DVT Prophylaxis: Pneumatic boots due to symptomatic anemia Continue hospital stay for treatment and further evaluation of symptomatic anemia likely secondary to GI bleed. Patient required hospitalization for close monitoring of blood levels, transfusion as necessary, specialist consultation, and further imaging. Quality Stroke Does the patient have a stroke diagnosis?: No VTE Prior VTE?: No VTE Risk Level:: Medical - moderate - high VTE Device Contraindication: N/A - Device Ordered VTE Drug Contraindication: Treatment Not Indicated
--- NOTE | 2023-06-15 14:10 | HO.POSTANES ---
Post Anesthesia Evaluation Post Anesthesia Evaluation Date of Service: 06/15/23 Vital Signs: Vital Signs Temp Pulse Resp BP Pulse Ox O2 Del Method 06/15/23 14:03 98.6 F 73 15 133/63 98 Room Air 06/15/23 09:57 Room Air 06/15/23 07:11 97.9 F 76 18 119/65 100 Room Air 06/15/23 04:00 97.6 F 76 16 128/68 96 Room Air Anesthesia: Monitored Mental Status: Awake Pain Control: Satisfactory Nausea/Vomiting: None Hydration: Adequate Anesthesia-Related Issues: No Anes. Related Issues
--- NOTE | 2023-06-15 14:12 | MHC.CM.PN ---
Per MD rounds, Patient will be with us for 2 days for procedure. A Cystoscopy is planned for today. Patient will be scoped up+ lower tomorrow. DP home no services. Patient will arrange for transport home.
[2023-06-15] MEDS: Lactated Ringers 1,000 ML 50 ML IVCONT ×2 (14:19→17:11)
--- NOTE | 2023-06-15 14:41 | MHC.SHP ---
Pre-Procedural Eval Section A - 24 Hr Update-Section A only Date of Service: 06/15/23 The patient is an INPATIENT: Yes Changes since office visit: No Cold of Flu in the past 2 weeks, No New Medical Problems, No Changes in Medication and No Patient answered all questions The patient has been examined within 24 hours of the surgical procedure. The History & Physical has been completed within 30 days and I have reviewed it.: Yes Section B - Complete if H&P > 30 days Chief Complaint: Symptomatic anemia, likely GI bleed Allergies: Allergies Allergy/AdvReac Type Severity Reaction Status Date / Time No Known Allergies Allergy Verified 06/12/23 14:45 Review of Systems Sugical H&P ROS: Negative: Constitution, Cardiovascular, Respiratory, Neurological, Psychiatric, Hem-Onc, Allergic/Immunologic, Gastrointestinal, Genitourinary, Musculoskeletal, Integumentary, Endocrine and Eyes/Ears/Nose/Throat Exam Surgical H&P Exam: Normal: HEENT, Normal: Heart, Normal: Lungs, Normal: Extremities, Normal: Abdomen, Normal: Skin and Normal: Neurological Plan Diagnosis/Plan: Unchanged (Cystoscopy, bladder biopsy, possible TURBT, right retrograde, possible stent) I have reviewed the history and physical and performed a pertinent physical examination on my patient. No changes have occurred unless specified. Time Spent With Patient Time: Total time managing care of this patient today ____ minutes.
--- NOTE | 2023-06-15 14:43 | P.CDIM_ITS ---
PROVIDER RESPONSE TEXT: To clarify, the appropriate diagnosis supported by the clinical indicators: Acute blood loss anemia QUERY TEXT: PHYSICIAN'S DOCUMENTATION REQUEST Date of Query: 06/15/2023 02:03 PM EDT Patient Name: MARJORIE OCHOA Admit Date: 06/13/2023 Dear Michelle Penn, A review of the medical record indicates additional documentation may be needed. Please review below and update the documentation accordingly. Clinical Indicators: Symptomatic anemia H&H 6.0/18.2 stool positive for occult blood Fatigue, tiredness x [address] showing a likely mass at GE junction, esophagus and gastric wall thickening concerning for infiltr ation likely secondary to GI bleed. 2 units PRBC Based on the above, could you clarify which of the following is the most likely type of anemia you ar e evaluating, treating, and/or monitoring? Acute blood loss anemia Anemia of chronic disease indicate if neoplastic disease, CKD, or other Chronic iron deficiency anemia due to blood loss Other (explain) Clinically unable to determine (explain) Thank you, Sruthi Varma, CCS, CDIS Use of terms such as suspected, likely, concern for, or probable (associated with a specific diagnosi s that is being evaluated, monitored, or treated as if it exists) are acceptable and can be coded in the inpatient se tting, when documented at the time of discharge. Please use your independent medical judgment in providing your response. THIS QUERY IS PART OF THE PERMANENT MEDICAL RECORD
--- NOTE | 2023-06-15 15:03 | HO.ANESPROP2 ---
[facility] Active Problems Active Problems: All Active Problems (Updated 06/14/23 @ 14:05 by Mathew Cueva MD) Hydronephrosis (Acute) Bladder mass (Acute) Mass of gastroesophageal junction (Acute) Abnormal finding on imaging (Acute) Acute GI bleeding (Acute) Abdominal pain (Acute) Anemia (Acute) Erectile dysfunction (Acute) Past Medical History Medical History (Updated 06/14/23 @ 14:05 by Mathew Cueva MD) Hiatal hernia Erectile dysfunction Family History Family History (Updated 10/02/22 @ 11:27 by Connie Atkins MD) Father Diabetes mellitus, Onset Age: 70 Mother No problems noted. Brother Acute myocardial infarction, Onset Age: 52 Family history of problems with anesthesia: No Surgical History Surgical History (Updated 06/15/23 @ 14:18 by Jemam Stapleton RN) History of rectal surgery Hx of esophagogastroduodenoscopy History of Problems with Anesthesia: No Social History Social History Household Members: Spouse Housing: House Do you presently have visiting nurse or other home services: No Patient Tobacco Use Status: Current someday Tobacco user Tobacco use type: Cigarette Smoked in Last 30 Days: No e-Cigarette/Vaping Use: Never Used Patient Interested in Nicotine Replacement: No Second Hand Smoke Exposure: No Use of substances other than those prescribed or required for medical reasons: No Currently Displaying Signs/Symptoms of Drug Intoxication Withdrawal: No Any prior treatment program specific to substance use: No Have you been hit, kicked, punched, or otherwise hurt by someone within the past year? If so, by whom?: No Do you feel safe in your current relationship?: Yes Is there a partner from a previous relationship who is making you feel unsafe now?: No Are you made to feel afraid or neglected: No Are you DNR?: No Advance Directives: No Advance Directives Information Provided: No Do you have thoughts of harming others: None Do you have a plan to hurt others: No Plan Recently lost weight without trying: Unsure Eating poorly because of decreased appetite: Yes Nutrition Risks: Poor intake 0-25% >4 days Poor oral hygiene: No service: No Current occupational status: employed Cognitive needs: No Hearing needs: No Vision needs: Yes Meds Allergies Allergy/AdvReac Type Severity Reaction Status Date / Time No Known Allergies Allergy Verified 06/12/23 14:45 Active Medications: Current Medications Acetaminophen (Acetaminophen 325 Mg Tablet) 650 mg PO Q6H PRN PRN Reason: Pain, Mild (Pain Scale 1-3) Benzonatate (Benzonatate 100 Mg Capsule) 100 mg PO TID PRN PRN Reason: Cough Docusate Sodium (Docusate Sodium 100 Mg Capsule) 100 mg PO DAILY PRN PRN Reason: Constipation Fentanyl (Fentanyl Citrate/Pf 100 Mcg/2 Ml Vial) 25 mcg IVPUSH Q5M PRN; Protocol PRN Reason: Pain, Moderate(Pain Scale 4-6) Hydromorphone HCl (Hydromorphone Hcl 0.5 Mg/0.5 Ml Syringe) 0.5 mg IVPUSH Q5M PRN; Protocol PRN Reason: Pain, Severe (Pain Scale 7-10) Lactated Ringer's (Lr) 1,000 mls @ 50 mls/hr IVCONT .Q20H [facility] Last Admin: 06/15/23 14:19 Dose: 50 mls/hr Levofloxacin (Levaquin) 500 mg in 100 mls @ 100 mls/hr IV PREOP ONE Stop: 06/15/23 15:42 Melatonin (Melatonin 3 Mg Tablet) 6 mg PO BEDTIME PRN PRN Reason: Insomnia Ondansetron HCl (Ondansetron Hcl 4 Mg/2 Ml Vial) 4 mg IVPUSH Q8H PRN PRN Reason: Nausea and Vomiting Ondansetron HCl (Ondansetron Hcl 4 Mg/2 Ml Vial) 4 mg IVPUSH ONCE PRN PRN Reason: Nausea and Vomiting Pantoprazole Sodium (Pantoprazole Sodium 40 Mg/10 Ml Vial) 40 mg IVPUSH BID@0630,1630 [facility] Last Admin: 06/15/23 06:25 Dose: 40 mg Sodium Chloride (0.9 % Sodium Chloride Flush 3 Ml Syringe) 3 ml IVFLUSH QSHIFT [facility] Last Admin: 06/15/23 07:11 Dose: 3 ml Home Medications Medication Instructions Recorded Confirmed Last Taken Type Candibactin 1 cap PO DAILY 06/12/23 06/12/23 Unknown History Ortho Biotic 1 cap PO DAILY 06/12/23 06/12/23 Unknown History Spectrazyme Metagest 1 cap PO DAILY 06/12/23 06/12/23 Unknown History Exam Height,Weight and Vital Signs: Height 5 ft 7 in Weight 69.8 kg Last Vital Signs Temp 98.6 F 06/15/23 14:03 Pulse 73 06/15/23 14:03 Resp 15 06/15/23 14:03 BP 133/63 06/15/23 14:03 Pulse Ox 98 06/15/23 14:03 O2 Del Method Room Air 06/15/23 14:03 Pertinent Lab Results Pertinent Lab Results: Laboratory Tests 06/12/23 06/12/23 06/13/23 18:21 22:12 05:57 WBC 7.2 6.1 RBC 1.93 L 2.16 L Hgb 6.0 L* 6.7 L* Hct 18.2 L* 20.2 L* MCV 94.3 93.5 MCH 31.1 31.0 MCHC 33.0 33.2 RDW 12.7 12.6 Plt Count 328 283 MPV 9.9 9.7 Immature Gran % (Auto) 0.3 Neut % (Auto) 72.2 Lymph % (Auto) 16.9 L Metcalfe % (Auto) 9.5 Eos % (Auto) 0.8 Baso % (Auto) 0.3 Lymph # (Auto) 1.2 Metcalfe # (Auto) 0.7 Eos # (Auto) 0.1 Baso # (Auto) 0.0 Abs Immat Gran (auto) 0.02 Absolute Neuts (auto) 5.2 Absolute Nucleated RBC 0.000 0.000 Nucleated RBC % (auto) 0.0 0.0 PT 13.0 INR 1.1 APTT 30.1 Sodium 134 L 135 Potassium 3.8 4.2 Chloride 101 104 Carbon Dioxide 25 26 Anion Gap 12 9 L BUN 19 H 15 Creatinine 1.12 1.18 Estim Creat Clear Calc 57.3 54.4 Estimated GFR > 60 > 60 Random Glucose 106 103 Calcium 9.7 D 9.1 D Magnesium 1.8 Total Bilirubin 0.2 AST 21 ALT 20 Alkaline Phosphatase 42 Troponin I High Sens 7.6 Total Protein 6.9 Albumin 3.8 Lipase 87 H Stool Occult Blood POSITIVE Blood Type AB Negative Antibody Screen NEGATIVE Crossmatch See Detail 06/13/23 06/14/23 06/14/23 12:02 06:03 06:03 WBC Cancelled 6.0 RBC Cancelled Hgb 8.1 L D Hct 24.7 L D MCV MCH MCHC RDW Plt Count MPV Immature Gran % (Auto) Neut % (Auto) Lymph % (Auto) Metcalfe % (Auto) Eos % (Auto) Baso % (Auto) Lymph # (Auto) Metcalfe # (Auto) Eos # (Auto) Baso # (Auto) Abs Immat Gran (auto) Absolute Neuts (auto) Absolute Nucleated RBC Nucleated RBC % (auto) PT INR APTT Sodium Potassium Chloride Carbon Dioxide Anion Gap BUN Creatinine Estim Creat Clear Calc Estimated GFR Random Glucose Calcium Magnesium Total Bilirubin AST ALT Alkaline Phosphatase Troponin I High Sens Total Protein Albumin Lipase Stool Occult Blood Blood Type Antibody Screen Crossmatch 06/14/23 06/14/23 06/14/23 06:03 06:03 06:03 WBC RBC 2.57 L Hgb Cancelled 7.7 L Hct Cancelled 23.2 L MCV Cancelled MCH MCHC RDW Plt Count MPV Immature Gran % (Auto) Neut % (Auto) Lymph % (Auto) Metcalfe % (Auto) Eos % (Auto) Baso % (Auto) Lymph # (Auto) Metcalfe # (Auto) Eos # (Auto) Baso # (Auto) Abs Immat Gran (auto) Absolute Neuts (auto) Absolute Nucleated RBC Nucleated RBC % (auto) PT INR APTT Sodium Potassium Chloride Carbon Dioxide Anion Gap BUN Creatinine Estim Creat Clear Calc Estimated GFR Random Glucose Calcium Magnesium Total Bilirubin AST ALT Alkaline Phosphatase Troponin I High Sens Total Protein Albumin Lipase Stool Occult Blood Blood Type Antibody Screen Crossmatch 06/14/23 06/14/23 06/14/23 06:03 06:03 06:03 WBC RBC Hgb Hct MCV 90.3 MCH Cancelled 30.0 MCHC Cancelled 33.2 RDW Cancelled Plt Count MPV Immature Gran % (Auto) Neut % (Auto) Lymph % (Auto) Metcalfe % (Auto) Eos % (Auto) Baso % (Auto) Lymph # (Auto) Metcalfe # (Auto) Eos # (Auto) Baso # (Auto) Abs Immat Gran (auto) Absolute Neuts (auto) Absolute Nucleated RBC Nucleated RBC % (auto) PT INR APTT Sodium Potassium Chloride Carbon Dioxide Anion Gap BUN Creatinine Estim Creat Clear Calc Estimated GFR Random Glucose Calcium Magnesium Total Bilirubin AST ALT Alkaline Phosphatase Troponin I High Sens Total Protein Albumin Lipase Stool Occult Blood Blood Type Antibody Screen Crossmatch 03/01/2706/14/23 06/14/23 06:03 06:03 06:03 WBC RBC Hgb Hct MCV MCH MCHC RDW 13.5 Plt Count Cancelled 270 MPV Cancelled 9.7 Immature Gran % (Auto) 0.2 Neut % (Auto) 66.6 Lymph % (Auto) 18.7 L Metcalfe % (Auto) 12.2 H Eos % (Auto) 1.8 Baso % (Auto) 0.5 Lymph # (Auto) 1.1 L [place]fe # (Auto) 0.7 Eos # (Auto) 0.1 Baso # (Auto) 0.0 Abs Immat Gran (auto) 0.01 Absolute Neuts (auto) 4.0 Absolute Nucleated RBC Cancelled Nucleated RBC % (auto) PT INR APTT Sodium Potassium Chloride Carbon Dioxide Anion Gap BUN Creatinine Estim Creat Clear Calc Estimated GFR Random Glucose Calcium Magnesium Total Bilirubin AST ALT Alkaline Phosphatase Troponin I High Sens Total Protein Albumin Lipase Stool Occult Blood Blood Type Antibody Screen Crossmatch 06/14/23 06/14/23 06/15/23 06:03 06:03 05:27 WBC Cancelled RBC Hgb Hct MCV MCH MCHC RDW Plt Count MPV Immature Gran % (Auto) Neut % (Auto) Lymph % (Auto) Metcalfe % (Auto) Eos % (Auto) Baso % (Auto) Lymph # (Auto) Metcalfe # (Auto) Eos # (Auto) Baso # (Auto) Abs Immat Gran (auto) Absolute Neuts (auto) Absolute Nucleated RBC 0.000 Nucleated RBC % (auto) Cancelled 0.0 PT INR APTT Sodium Potassium Chloride Carbon Dioxide Anion Gap BUN Creatinine Estim Creat Clear Calc Estimated GFR Random Glucose Calcium Magnesium Total Bilirubin AST ALT Alkaline Phosphatase Troponin I High Sens Total Protein Albumin Lipase Stool Occult Blood Blood Type Antibody Screen Crossmatch 06/15/23 06/15/23 06/15/23 05:27 05:27 05:27 WBC 6.1 RBC Cancelled 2.64 L Hgb Cancelled 8.1 L Hct Cancelled MCV MCH MCHC RDW Plt Count MPV Immature Gran % (Auto) Neut % (Auto) Lymph % (Auto) Metcalfe % (Auto) Eos % (Auto) Baso % (Auto) Lymph # (Auto) [place]calfe # (Auto) Eos # (Auto) Baso # (Auto) Abs Immat Gran (auto) Absolute Neuts (auto) Absolute Nucleated RBC Nucleated RBC % (auto) PT INR APTT Sodium Potassium Chloride Carbon Dioxide Anion Gap BUN Creatinine Estim Creat Clear Calc Estimated GFR Random Glucose Calcium Magnesium Total Bilirubin AST ALT Alkaline Phosphatase Troponin I High Sens Total Protein Albumin Lipase Stool Occult Blood Blood Type Antibody Screen Crossmatch 06/15/23 06/15/23 06/15/23 05:27 05:27 05:27 WBC RBC Hgb Hct 24.3 L MCV Cancelled 92.0 MCH Cancelled 30.7 MCHC Cancelled RDW Plt Count MPV Immature Gran % (Auto) Neut % (Auto) Lymph % (Auto) Metcalfe % (Auto) Eos % (Auto) Baso % (Auto) Lymph # (Auto) [place]calfe # (Auto) Eos # (Auto) Baso # (Auto) Abs Immat Gran (auto) Absolute Neuts (auto) Absolute Nucleated RBC Nucleated RBC % (auto) PT INR APTT Sodium Potassium Chloride Carbon Dioxide Anion Gap BUN Creatinine Estim Creat Clear Calc Estimated GFR Random Glucose Calcium Magnesium Total Bilirubin AST ALT Alkaline Phosphatase Troponin I High Sens Total Protein Albumin Lipase Stool Occult Blood Blood Type Antibody Screen Crossmatch 06/15/23 06/15/23 06/15/23 05:27 05:27 05:27 WBC RBC Hgb Hct MCV MCH MCHC 33.3 RDW Cancelled 13.3 Plt Count Cancelled 280 MPV Cancelled Immature Gran % (Auto) Neut % (Auto) Lymph % (Auto) Metcalfe % (Auto) Eos % (Auto) Baso % (Auto) Lymph # (Auto) [place]calfe # (Auto) Eos # (Auto) Baso # (Auto) Abs Immat Gran (auto) Absolute Neuts (auto) Absolute Nucleated RBC Nucleated RBC % (auto) PT INR APTT Sodium Potassium Chloride Carbon Dioxide Anion Gap BUN Creatinine Estim Creat Clear Calc Estimated GFR Random Glucose Calcium Magnesium Total Bilirubin AST ALT Alkaline Phosphatase Troponin I High Sens Total Protein Albumin Lipase Stool Occult Blood Blood Type Antibody Screen Crossmatch 06/15/23 06/15/23 06/15/23 05:27 05:27 05:27 WBC RBC Hgb Hct MCV MCH MCHC RDW Plt Count MPV 9.8 Immature Gran % (Auto) 0.3 Neut % (Auto) 67.3 Lymph % (Auto) 17.8 L Metcalfe % (Auto) 12.0 H Eos % (Auto) 2.1 Baso % (Auto) 0.5 Lymph # (Auto) 1.1 L [place]calfe # (Auto) 0.7 Eos # (Auto) 0.1 Baso # (Auto) 0.0 Abs Immat Gran (auto) 0.02 Absolute Neuts (auto) 4.1 Absolute Nucleated RBC Cancelled 0.000 Nucleated RBC % (auto) Cancelled 0.0 PT INR APTT Sodium 138 Potassium 3.8 Chloride 106 Carbon Dioxide 25 Anion Gap 11 L BUN 10 Creatinine 1.06 Estim Creat Clear Calc 60.6 Estimated GFR > 60 Random Glucose 105 Calcium 8.6 Magnesium Total Bilirubin AST ALT Alkaline Phosphatase Troponin I High Sens Total Protein Albumin Lipase Stool Occult Blood Blood Type Antibody Screen Crossmatch Airway Mallampati Class: I TM Dist: >3cm Neck ROM: Full Loose/Missing/Broken Teeth: No Heart: rrr Lungs: cta b/l Assessment and Plan Assessment Anesthesia Assessment: Anesthesia Plan Discussed and Chart Reviewed Final Anesthetic Review Family History of Problems with Anesthesia: No History of Problems with Anesthesia: No NPO: Yes ASA Class: II Final Preanesthetic Review: No Changes in Pt Med Stat, Meds/Allgs Chart Reviewed, Consent Obtained/Reviewed and Anes Risks/Benef Reviewed Patient Risk: Low Procedure Risk: Intermediate Anesthetic Plan Anesthetic Plan: GA Disposition: Standard PACU
[2023-06-15] MEDS: HYDROmorphone HCl 0.5 MG/0.5 ML SYRINGE IVPUSH (16:35)
[2023-06-15] MEDS: Phenazopyridine HCL 100 MG TABLET PO (16:44)
[2023-06-15] MEDS: Acetaminophen 325 MG TABLET 650 MG PO (17:19)
--- NOTE | 2023-06-15 17:23 | PC.NURSE ---
Pt returned from procedure via stretcher. A/Ox4. c/o some discomfort to penis, tylenol given. IVF per MD order.
[2023-06-16 03:33] VITALS: BP 119/59; PULSE 69; RESP 16; TEMP 36.4; O2SAT 96
[2023-06-16 05:43] LABS: Hematocrit 24.5 % (42.0-52.0); Mean Corpuscular HGB Conc 32.7 g/dl (31.0-36.0); Mean Corpuscular Hemoglobin 29.9 pg (27.0-33.0); Mean Corpuscular Volume 91.4 fL (80.0-98.0); Mean Platelet Volume 9.5 fL (9.4-12.4); Platelet Count 291 X10*3/uL (160-400); Red Blood Count 2.68 X10*6/uL (4.60-5.80); Red Cell Distribution Width 13.2 % (11.0-16.0); White Blood Count 7.8 X10*3/uL (4.8-10.8)
[2023-06-16 05:56] LABS: Anion Gap 9 (12-20); Blood Urea Nitrogen 12 mg/dL (9-16); Calcium 8.8 mg/dL (8.4-10.2); Carbon Dioxide 26 mmol/L (22-29); Chloride 106 mmol/L (96-108); Estimated Glomerular Filt Rate > 60; Glucose Random 104 mg/dL (60-115); Potassium 4.1 mmol/L (3.3-5.1); Sodium 137 mmol/L (135-145)
[2023-06-16] MEDS: Pantoprazole Sodium 40 MG/10 ML VIAL IVPUSH (06:22)
[2023-06-16 07:40] VITALS: BP 129/67; PULSE 71; RESP 12; TEMP 36.5; O2SAT 97
--- NOTE | 2023-06-16 10:34 | HO.PM.IMPN ---
Subjective Subjective Date of Service: 06/16/23 Interval History: Follow up anemia No significant nursing events overnight. no pain or bleeding Review of Systems All review of systems reviewed except as above Constitutional Constitutional: Reports no additional constitutional complaints Cardiovascular Cardiovascular: Reports no additional cardiovascular complaints Respiratory Respiratory: Reports no additional respiratory complaints Genitourinary Genitourinary: Reports no additional male genitourinary complaints Physical Exam Vital Signs: Vital Signs: Last Vital Signs Temp 97.7 F 06/16/23 07:40 Pulse 71 06/16/23 07:40 Resp 12 06/16/23 07:40 BP 129/67 06/16/23 07:40 Pulse Ox 97 06/16/23 07:40 O2 Del Method Room Air 06/16/23 07:40 BMI result Body Mass Index 24.1 Appearing in no acute distress lung sounds are clear to auscultation heart regular rate rhythm, clear S1, S2 positive bowel sounds, abdomen is soft, nontender neuro patient is alert x3, no focal deficits Objective Data Active Medications Acetaminophen (Acetaminophen 325 Mg Tablet) 650 mg PO Q6H PRN PRN Reason: Pain, Mild (Pain Scale 1-3) Last Admin: 06/15/23 17:19 Dose: 650 mg Documented By: KATHI Benzonatate (Benzonatate 100 Mg Capsule) 100 mg PO TID PRN PRN Reason: Cough Docusate Sodium (Docusate Sodium 100 Mg Capsule) 100 mg PO DAILY PRN PRN Reason: Constipation Fentanyl (Fentanyl Citrate/Pf 100 Mcg/2 Ml Vial) 25 mcg IVPUSH Q5M PRN; Protocol PRN Reason: Pain, Moderate(Pain Scale 4-6) Hydromorphone HCl (Hydromorphone Hcl 0.5 Mg/0.5 Ml Syringe) 0.5 mg IVPUSH Q5M PRN; Protocol PRN Reason: Pain, Severe (Pain Scale 7-10) Last Admin: 06/15/23 16:35 Dose: 0.5 mg Documented By: DANGELL Lactated Ringer's (Lr) 1,000 mls @ 50 mls/hr IVCONT .Q20H [facility] Last Admin: 06/15/23 17:11 Dose: 50 mls/hr Documented By: KATHI Melatonin (Melatonin 3 Mg Tablet) 6 mg PO BEDTIME PRN PRN Reason: Insomnia Ondansetron HCl (Ondansetron Hcl 4 Mg/2 Ml Vial) 4 mg IVPUSH Q8H PRN PRN Reason: Nausea and Vomiting Ondansetron HCl (Ondansetron Hcl 4 Mg/2 Ml Vial) 4 mg IVPUSH ONCE PRN PRN Reason: Nausea and Vomiting Sodium Chloride (0.9 % Sodium Chloride Flush 3 Ml Syringe) 3 ml IVFLUSH QSHIFT [facility] Last Admin: 06/16/23 07:44 Dose: Not Given Documented By: MANDY Non-Admin Reason: IV Running Labs 06/16/23 05:32 06/16/23 05:32 Labs: Laboratory Results - last 24 hr 06/16/23 05:32 MCV 91.4 MCH 29.9 MCHC 32.7 RDW 13.2 Plt Count 291 MPV 9.5 Absolute Nucleated RBC 0.000 Nucleated RBC % (auto) 0.0 Anion Gap 9 L Estim Creat Clear Calc 60.0 Estimated GFR > 60 Random Glucose 104 Calcium 8.8 Assessment and Plan (1) Acute GI bleeding: Status: Acute Plan Pt is a 72-year-old male with a PMH significant for?congenital hiatal hernia but otherwise healthly who presents to the ED after outpatient labs showed low blood levels. Pt will be admitted to the hospital for treatment and further evaluation of symptomatic anemia likely secondary to GI bleed. Symptomatic anemia Stable H&H s/p [address] showing a likely mass at GE junction, esophagus and gastric wall thickening concerning for infiltration oral PPI s/p EGD> normal mucosa noted to esophagus, mass minimally obstructing the GEJ biopsy taken, duodenitis, follow biopsy results, barium swallow with UGIS for further characterization of mass Barium swallow scheduled for today Possible right kidney obstruction/neoplasm CT showing likely right kidney obstruction, moderate to severe hydronephrosis and hydroureter with possible urothelial neoplasm Pt asymptomatic: denies flank pain or changes to bladder habits s/p cystoscopy 06/16/23 with bladder vbiopsy Aortic aneurism CT found infrarenal fusiform aortic aneurysm of 4.4 cm Follow-up outpatient with vascular Full Code Attending Dr. Perry DVT Prophylaxis: Pneumatic boots due to symptomatic anemia Continue hospital stay for treatment and further evaluation of symptomatic anemia likely secondary to GI bleed. Patient required hospitalization for close monitoring of blood levels, transfusion as necessary, specialist consultation, and further imaging. Quality Stroke Does the patient have a stroke diagnosis?: No VTE Prior VTE?: No VTE Risk Level:: Medical - moderate - high VTE Device Contraindication: N/A - Device Ordered VTE Drug Contraindication: Treatment Not Indicated
--- NOTE | 2023-06-16 10:49 | MHC.SPEECHCO ---
Pt remains NPO for a Upper GI Barium Swallow ordered today.
[2023-06-16 12:00] VITALS: BP 148/67; PULSE 76; RESP 18; TEMP 36.9; O2SAT 96
--- NOTE | 2023-06-16 14:27 | HO.POSTANES ---
Post Anesthesia Evaluation Post Anesthesia Evaluation Date of Service: 06/16/23 Vital Signs: Vital Signs Temp Pulse Resp BP Pulse Ox O2 Del Method 06/16/23 12:00 98.4 F 76 18 148/67 H 96 Room Air 06/16/23 07:40 97.7 F 71 12 129/67 97 Room Air 06/16/23 03:33 97.6 F 69 16 119/59 L 96 Room Air Anesthesia: General Mental Status: Awake Pain Control: Satisfactory Nausea/Vomiting: None Hydration: Adequate Anesthesia-Related Issues: No Anes. Related Issues
[2023-06-16] MEDS: Lactated Ringers 1,000 ML 50 ML IVCONT (14:59)
[2023-06-16 15:47] VITALS: BP 136/64; PULSE 80; RESP 16; TEMP 36.2; O2SAT 98
[2023-06-16 15:52] VITALS: BP 136/64; PULSE 80; RESP 18; TEMP 36.2; O2SAT 97
[2023-06-16 19:09] VITALS: BP 128/63; PULSE 85; RESP 18; TEMP 37.2; O2SAT 94
[2023-06-16] MEDS: 0.9 % Sodium Chloride Flush 3 ML SYRINGE IVFLUSH (21:09)
[2023-06-17] VITALS (9 sets, daily range): BP systolic 122–148; BP diastolic 58–72; PULSE 69–80; RESP 12–78; TEMP 35.6–37.5; O2SAT 96–98
[2023-06-17 06:38] LABS: Hematocrit 23.2 % (42.0-52.0); Hemoglobin 7.5 g/dl (14.0-18.0); Mean Corpuscular HGB Conc 32.3 g/dl (31.0-36.0); Mean Corpuscular Hemoglobin 29.5 pg (27.0-33.0); Mean Corpuscular Volume 91.3 fL (80.0-98.0); Platelet Count 266 X10*3/uL (160-400); Red Blood Count 2.54 X10*6/uL (4.60-5.80); Red Cell Distribution Width 13.2 % (11.0-16.0)
--- NOTE | 2023-06-17 11:43 | PC.NURSE ---
Addendum entered by Marquise Lainez 06/17/23 13:26: entered in error. wrong Pt. Original Note: This RN and Mlapaisaura were at bedside and noticed travis red blood in colostomy bag. @11 changed colostomy bag to assess site. No blood noted at circumfrence of stoma. Noted small 1mm laceration producing minimal blood on the stoma. MD notified, Heparin currently held. Cont to monitor
--- NOTE | 2023-06-17 12:42 | MHC.SL.SWA ---
Risk of Aspiration Due to: None Dysphasia Diet Status: NO CHANGE Liquid Consistency and Strategies for Safe Swallow: Liquid Intake Recommendation: Thin Liquid Intake Strategies: Unrestricted Solid Food Consistency: Dietary Recommendations: Regular Oral Medication Intake: Whole with Liquid Please contact the pharmacy regarding appropriate crushable or liquid drug formulations that are available whenever modified delivery is recommended. Compensatory Strategies and Precautions to be Taken for Safe Swallow: Sitting Upright (90 deg) Small Bites and Sips Rate of Ingestion Change Supervision While Eating and Drinking for Safe Swallow: None Needed Foods to Avoid: Swallowing Recommended Treatments: Recommendation for Speech: Inpatient Speech Therapy Patient evaluated and cleared for thin liquids w/ UPPER LINING CEMENTER on 06/12. Evaluation of swallow was deferred a few days NPO status for procedure(s). Patient's solids evaluated on 06/16 at lunch. Recommend patient continue with REGULAR solids and THIN liquids. Pills whole w/ liquid. Scale Clerk Clinican/Clinical Fellow: No Supervisory Statement: I have reviewed and agree with the student/clinical fellow's documentation: N/A Speech Language Pathologist: Mary Munoz M.A., CCC-UPPER LINING CEMENTER
--- NOTE | 2023-06-17 14:08 | P.PNIM_ITS ---
Subjective Subjective Date of Service: 06/17/23 Interval History: No acute issues overnight. Hemoglobin dropped to 7.5 from 8.0 without evidence of active bleeding Review of Systems Denies chest pain Denies shortness of breath Denies nausea vomiting diarrhea Denies fever chills Physical Exam 2 Vital Signs: Vital Signs: Last Vital Signs Temp 98.4 F 06/17/23 11:51 Pulse 72 06/17/23 11:51 Resp 16 06/17/23 11:51 BP 140/60 H 06/17/23 11:51 Pulse Ox 98 06/17/23 07:16 O2 Del Method Room Air 06/17/23 07:16 BMI result Body Mass Index 24.1 Const: Other: Awake alert no acute distress Resp: Other: Clear to auscultation bilaterally no rales rhonchi or wheezes Cardio: Other: No S4; positive S1-S2; no S3 murmurs rubs or gallops GI: Other: Soft nontender nondistended normoactive bowel sounds Extrem: Other: No edema bilaterally Objective Data Active Medications Acetaminophen (Acetaminophen 325 Mg Tablet) 650 mg PO Q6H PRN PRN Reason: Pain, Mild (Pain Scale 1-3) Last Admin: 06/15/23 17:19 Dose: 650 mg Documented By: LARCARMEN Benzonatate (Benzonatate 100 Mg Capsule) 100 mg PO TID PRN PRN Reason: Cough Docusate Sodium (Docusate Sodium 100 Mg Capsule) 100 mg PO DAILY PRN PRN Reason: Constipation Fentanyl (Fentanyl Citrate/Pf 100 Mcg/2 Ml Vial) 25 mcg IVPUSH Q5M PRN; Protocol PRN Reason: Pain, Moderate(Pain Scale 4-6) Hydromorphone HCl (Hydromorphone Hcl 0.5 Mg/0.5 Ml Syringe) 0.5 mg IVPUSH Q5M PRN; Protocol PRN Reason: Pain, Severe (Pain Scale 7-10) Last Admin: 06/15/23 16:35 Dose: 0.5 mg Documented By: DANGELL Melatonin (Melatonin 3 Mg Tablet) 6 mg PO BEDTIME PRN PRN Reason: Insomnia Omeprazole (Omeprazole 20 Mg Capsule.Dr) 20 mg PO BID@0630,1630 [facility] Ondansetron HCl (Ondansetron Hcl 4 Mg/2 Ml Vial) 4 mg IVPUSH Q8H PRN PRN Reason: Nausea and Vomiting Ondansetron HCl (Ondansetron Hcl 4 Mg/2 Ml Vial) 4 mg IVPUSH ONCE PRN PRN Reason: Nausea and Vomiting Sodium Chloride (0.9 % Sodium Chloride Flush 3 Ml Syringe) [address] [facility] Last Admin: 06/17/23 10:44 Dose: Not Given Documented By: MANDY Non-Admin Reason: IV Running Labs 06/17/23 05:30 06/16/23 05:32 Labs: Laboratory Results - last 24 hr 06/12/23 06/17/23 06/17/23 18:21 05:30 10:27 MCV 91.3 MCH 29.5 MCHC 32.3 RDW 13.2 Plt Count 266 MPV 10.0 Absolute Nucleated RBC 0.000 Nucleated RBC % (auto) 0.0 Blood Type AB Negative Antibody Screen NEGATIVE Crossmatch See Detail See Detail Assessment and Plan (1) Anemia: Status: Acute (2) Mass of gastroesophageal junction: Status: Acute (3) Acute GI bleeding: Status: Acute Plan Pt is a 72-year-old male with a PMH significant for?congenital hiatal hernia but otherwise healthly who presents to the ED after outpatient labs showed low blood levels. Pt will be admitted to the hospital for treatment and further evaluation of symptomatic anemia likely secondary to GI bleed. 1.Symptomatic anemia -s/p 4 units PRBC -HGB 7.5....will transfuse 2 additional units -follow CBC in a.m.. . . Question delusional aspect 2. 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 Likely significant disease burden -await GI follow-up 3.Right kidney obstruction... Status post stenting -follow renals/divalents -await pathology 4.Aortic aneurism -CT found infrarenal fusiform aortic aneurysm of 4.4 cm -follow-up outpatient with vascular Full Code Pneumatic boots Continue hospital stay for treatment and further evaluation of symptomatic anemia likely secondary to GI bleed. Patient required hospitalization for close monitoring of blood levels, transfusion as necessary, specialist consultation, and further imaging. Quality Stroke Does the patient have a stroke diagnosis?: No VTE Prior VTE?: No VTE Risk Level:: Medical - moderate - high VTE Device Contraindication: N/A - Device Ordered VTE Drug Contraindication: Treatment Not Indicated
[2023-06-17] MEDS: Furosemide 20 MG/2 ML VIAL IVPUSH (14:36)
[2023-06-17] MEDS: Omeprazole 20 MG CAPSULE.DR PO (16:19)
[2023-06-17] MEDS: Acetaminophen 325 MG TABLET 650 MG PO (20:53)
[2023-06-17] MEDS: 0.9 % Sodium Chloride Flush 3 ML SYRINGE IVFLUSH (20:56)
[2023-06-18 03:17] VITALS: BP 124/64; PULSE 68; RESP 16; TEMP 36; O2SAT 97
[2023-06-18] MEDS: Acetaminophen 325 MG TABLET 650 MG PO (03:18)
[2023-06-18 05:52] LABS: MANUAL DIFF FLAG NO
[2023-06-18 06:13] LABS: Alanine Aminotransferase 14 U/L (0-40); Albumin Level 3.2 g/dL (3.5-5.0); Alkaline Phosphatase 41 U/L (39-117); Anion Gap 11 (12-20); Aspartate Amino Transferase 16 U/L (5-37); Bilirubin Total 0.3 mg/dL (0.0-1.0); Blood Urea Nitrogen 17 mg/dL (9-16); Calcium 8.8 mg/dL (8.4-10.2); Carbon Dioxide 27 mmol/L (22-29); Chloride 104 mmol/L (96-108); Creatinine Clr Calc Pharmacy 69.1; Estimated Glomerular Filt Rate > 60; Glucose Fasting 103 mg/dL (60-99); Potassium 3.3 mmol/L (3.3-5.1); Sodium 139 mmol/L (135-145); Total Protein 5.8 g/dL (6.5-8.0)
[2023-06-18] MEDS: Omeprazole 20 MG CAPSULE.DR PO ×2 (06:16→17:15)
[2023-06-18 06:18] LABS: Basophils Percent Auto 0.5 % (0-2); Eosinophils Absolute Auto 0.1 X10*3/uL (0.0-0.4); Eosinophils Percent Auto 2.1 % (0-4); Hematocrit 27.2 % (42.0-52.0); Hemoglobin 9.1 g/dl (14.0-18.0); Imm Gran Abs Auto 0.02 X10*3/uL (0.00-0.03); Imm Gran Pct Auto 0.3 % (0.0-0.4); Lymphocytes Absolute Auto 1.2 X10*3/uL (1.2-4.9); Lymphocytes Percent Auto 20.1 % (20-40); Mean Corpuscular HGB Conc 33.5 g/dl (31.0-36.0); Mean Corpuscular Hemoglobin 29.4 pg (27.0-33.0); Mean Platelet Volume 9.9 fL (9.4-12.4); Monocytes Absolute Auto 0.7 X10*3/uL (0.1-1.2); Monocytes Percent Auto 11.3 % (2-11); Neutrophils Absolute Auto 4.1 x10*3/uL (2.0-8.3); Neutrophils Percent Auto 65.7 % (45-73); Platelet Count 258 X10*3/uL (160-400); Red Blood Count 3.09 X10*6/uL (4.60-5.80); Red Cell Distribution Width 13.6 % (11.0-16.0); White Blood Count 6.2 X10*3/uL (4.8-10.8)
[2023-06-18 07:21] VITALS: BP 131/61; PULSE 69; RESP 12; TEMP 36.2; O2SAT 97
[2023-06-18] MEDS: 0.9 % Sodium Chloride Flush 3 ML SYRINGE IVFLUSH ×3 (08:00→20:29)
--- NOTE | 2023-06-18 11:42 | P.PNGI_ITS ---
Subjective Subjective Date of Service: 06/18/23 Interval History: Seen at bedside with present. Reports feeling fine. Biopsy results reviewed - submucosal lesion and will need to rebiopsy. Critical Care Time (minutes): 0 Physical Exam 2 Vital Signs: Vital Signs: Last Vital Signs Temp 97.1 F 06/18/23 07:21 Pulse 69 06/18/23 07:21 Resp 12 06/18/23 07:21 BP 131/61 06/18/23 07:21 Pulse Ox 97 06/18/23 07:21 O2 Del Method Room Air 06/18/23 07:21 BMI result Body Mass Index 24.1 Gen appear: NAD Abd: soft, nondistended Objective Data Labs 06/18/23 05:48 06/18/23 05:48 Labs: Laboratory Results - last 24 hr 06/17/23 06/18/23 10:27 05:48 WBC 6.2 RBC 3.09 L D Hgb 9.1 L D Hct 27.2 L MCV 88.0 MCH 29.4 MCHC 33.5 RDW 13.6 Plt Count 258 MPV 9.9 Immature Gran % (Auto) 0.3 Neut % (Auto) 65.7 Lymph % (Auto) 20.1 [place] % (Auto) 11.3 H Eos % (Auto) 2.1 Baso % (Auto) 0.5 Lymph # (Auto) 1.2 [place] # (Auto) 0.7 Eos # (Auto) 0.1 Baso # (Auto) 0.0 Abs Immat Gran (auto) 0.02 Absolute Neuts (auto) 4.1 Absolute Nucleated RBC 0.000 Nucleated RBC % (auto) 0.0 Sodium 139 Potassium 3.3 Chloride 104 Carbon Dioxide 27 Anion Gap 11 L BUN 17 H Creatinine 0.93 Estim Creat Clear Calc 69.1 Estimated GFR > 60 Fasting Glucose 103 H Calcium 8.8 Total Bilirubin 0.3 AST 16 ALT 14 Alkaline Phosphatase 41 Total Protein 5.8 L Albumin 3.2 L Blood Type AB Negative Antibody Screen NEGATIVE Crossmatch See Detail Procedures Date of Service Date of Service: 06/18/23 Progress Note: A&P Assessment and plan (1) Mass of gastroesophageal junction: Status: Acute (2) Abnormal finding on imaging: Status: Acute (3) Abdominal pain: Status: Acute (4) Anemia: Status: Acute (5) Positive colorectal cancer screening using Cologuard test: Status: Acute Plan Reviewed with the patient that mass appeared to be submucosal, therefore will need further, deep biopsies. We can repeat the upper endoscopy along with a colonoscopy, given anemia as well as positive Cologuard test last year. Plan: - Clear liquid diet today - GoLYTELY prep to start this afternoon - NPO after MN for EGD/colo tomorrow Time Spent With Patient Time: Total time managing care of this patient today ____ minutes. Quality Stroke Does the patient have a stroke diagnosis?: No VTE Prior VTE?: No VTE Risk Level:: Medical - moderate - high VTE Device Contraindication: N/A - Device Ordered VTE Drug Contraindication: Treatment Not Indicated
--- NOTE | 2023-06-18 12:56 | MHC.SLORD ---
Speech Language Pathology Order Status: Spoke with patient, who is now on clear liquid diet pending a procedure tomorrow. GLAZE MIXER assessed swallow as WFL, patient able to tolerate least restrictive diet when medically appropriate. GLAZE MIXER will discharge order as complete. Please re-consult if any additional concerns arise.
--- NOTE | 2023-06-18 15:34 | HO.PM.IMPN ---
Subjective Subjective Date of Service: 06/18/23 Interval History: seen and examined this morning follow up for anemia, esophageal/gastric mass H/H stable no abdominal pain Constitutional Constitutional: Denies chills and Denies fever(s) Cardiovascular Cardiovascular: Denies chest pain, Denies palpitations and Denies dyspnea Respiratory Respiratory: Denies cough and Denies dyspnea Gastrointestinal Gastrointestinal: Denies abdominal pain Endocrine Endocrine: Denies palpitations Physical Exam Vital Signs: Vital Signs: Last Vital Signs Temp 97.1 F 06/18/23 07:21 Pulse 69 06/18/23 07:21 Resp 12 06/18/23 07:21 BP 131/61 06/18/23 07:21 Pulse Ox 97 06/18/23 07:21 O2 Del Method Room Air 06/18/23 07:21 BMI result Body Mass Index 24.1 Const: General: cooperative, comfortable, no acute distress, alert and awake Nutritional Appearance: thin Orientation/consciousness: patient oriented x3 Resp: Effort & Inspection: normal respiratory effort, able to speak in complete sentences, no respiratory distress and no use of accessory muscles Cardio: Rate: regular rate GI: Inspection: No distended Palpation (GI): Soft to palpation and nontender Neuro: General: patient oriented x3, moves all extremities and CN's II-XI intact bilaterally Extrem: General: Yes no pedal edema Objective Data Active Medications Acetaminophen (Acetaminophen 325 Mg Tablet) 650 mg PO Q6H PRN PRN Reason: Pain, Mild (Pain Scale 1-3) Last Admin: 06/18/23 03:18 Dose: 650 mg Documented By: PARAMJIT Benzonatate (Benzonatate 100 Mg Capsule) 100 mg PO TID PRN PRN Reason: Cough Docusate Sodium (Docusate Sodium 100 Mg Capsule) 100 mg PO DAILY PRN PRN Reason: Constipation Fentanyl (Fentanyl Citrate/Pf 100 Mcg/2 Ml Vial) 25 mcg IVPUSH Q5M PRN; Protocol PRN Reason: Pain, Moderate(Pain Scale 4-6) Hydromorphone HCl (Hydromorphone Hcl 0.5 Mg/0.5 Ml Syringe) 0.5 mg IVPUSH Q5M PRN; Protocol PRN Reason: Pain, Severe (Pain Scale 7-10) Last Admin: 06/15/23 16:35 Dose: 0.5 mg Documented By: KENNA Melatonin (Melatonin 3 Mg Tablet) 6 mg PO BEDTIME PRN PRN Reason: Insomnia Omeprazole (Omeprazole 20 Mg Capsule.) 20 mg PO BID@0630,1630 [facility] Last Admin: 06/18/23 06:16 Dose: 20 mg Documented By: PARAMJIT Ondansetron HCl (Ondansetron Hcl 4 Mg/2 Ml Vial) 4 mg IVPUSH Q8H PRN PRN Reason: Nausea and Vomiting Ondansetron HCl (Ondansetron Hcl 4 Mg/2 Ml Vial) 4 mg IVPUSH ONCE PRN PRN Reason: Nausea and Vomiting Polyethylene Glycol/Electrolytes (Peg 3350/Na Sulf,Bicarb,Cl/Kcl 4,000 Ml Soln.Recon) 4,000 ml PO ONCE ONE Stop: 06/18/23 16:01 Sodium Chloride (0.9 % Sodium Chloride Flush 3 Ml Syringe) 3 ml IVFLUSH QSHIFT [facility] Last Admin: 06/18/23 08:00 Dose: 3 ml Documented By: KAL Labs 06/18/23 05:48 06/18/23 05:48 Labs: Laboratory Results - last 24 hr 06/17/23 06/18/23 10:27 05:48 MCV 88.0 MCH 29.4 MCHC 33.5 RDW 13.6 Plt Count 258 MPV 9.9 Immature Gran % (Auto) 0.3 Neut % (Auto) 65.7 Lymph % (Auto) 20.1 [place] % (Auto) 11.3 H Eos % (Auto) 2.1 Baso % (Auto) 0.5 Lymph # (Auto) 1.2 [place] # (Auto) 0.7 Eos # (Auto) 0.1 Baso # (Auto) 0.0 Abs Immat Gran (auto) 0.02 Absolute Neuts (auto) 4.1 Absolute Nucleated RBC 0.000 Nucleated RBC % (auto) 0.0 Anion Gap 11 L Estim Creat Clear Calc 69.1 Estimated GFR > 60 Fasting Glucose 103 H Calcium 8.8 Total Bilirubin 0.3 AST 16 ALT 14 Alkaline Phosphatase 41 Total Protein 5.8 L Albumin 3.2 L Blood Type AB Negative Antibody Screen NEGATIVE Crossmatch See Detail Assessment and Plan (1) Hydronephrosis: Status: Acute (2) Bladder mass: Status: Acute (3) Mass of gastroesophageal junction: Status: Acute (4) Anemia: Status: Acute Plan Pt is a 72-year-old male with a PMH significant for?congenital hiatal hernia but otherwise healthly who presents to the ED after outpatient labs showed low blood levels. Pt will be admitted to the hospital for treatment and further evaluation of symptomatic anemia likely secondary to GI bleed. 1.Symptomatic anemia -s/p 6 units PRBC H/H stable overnight s/p EGD with biopsy, no bleeding on exam - had + cologuard last year and with persistent anemia; plan for repeat EGD and Colonoscopy in am clears today, NPO at midnight 2. Gastric mass (by EGD) Barium swallow reviewed.Likely significant disease burden s/p EGD with biopsy of mass, pathology negative - needs to be re-biopsied - plan for repeat EGD in am 3.Right kidney obstruction CT showing likely right kidney obstruction, moderate to severe hydronephrosis and hydroureter with possible urothelial neoplasm seen by urology, s/p stent placement - will need follow up in 4-6 weeks for stent removal and assess for resolution of hydro Pathology negative for high grade urothelial carcinoma 4.Aortic aneurism -CT found infrarenal fusiform aortic aneurysm of 4.4 cm -follow-up outpatient with vascular Full Code Pneumatic boots Continue hospital stay for treatment and further evaluation of symptomatic anemia likely secondary to GI bleed. Patient required hospitalization for close monitoring of blood levels, transfusion as necessary, specialist consultation, and further imaging. Quality Stroke Does the patient have a stroke diagnosis?: No VTE Prior VTE?: No VTE Risk Level:: Medical - moderate - high VTE Device Contraindication: N/A - Device Ordered VTE Drug Contraindication: Treatment Not Indicated
[2023-06-18 15:37] VITALS: BP 138/69; PULSE 66; RESP 18; TEMP 36.6; O2SAT 98
[2023-06-18] MEDS: PEG 3350/Na Sulf,Bicarb,Cl/KCL 4,000 ML SOLN.RECON 4000 ML PO (16:34)
[2023-06-18 19:32] VITALS: BP 143/67; PULSE 68; RESP 18; TEMP 36.6; O2SAT 99
[2023-06-19] VITALS (7 sets, daily range): BP systolic 122–162; BP diastolic 60–75; PULSE 64–74; RESP 12–18; TEMP 36.1–36.7; O2SAT 93–100
[2023-06-19 05:55] LABS: MANUAL DIFF FLAG NO
[2023-06-19 06:11] LABS: Basophils Percent Auto 0.7 % (0-2); Eosinophils Absolute Auto 0.2 X10*3/uL (0.0-0.4); Eosinophils Percent Auto 2.7 % (0-4); Imm Gran Abs Auto 0.01 X10*3/uL (0.00-0.03); Imm Gran Pct Auto 0.2 % (0.0-0.4); Lymphocytes Absolute Auto 1.1 X10*3/uL (1.2-4.9); Lymphocytes Percent Auto 19.7 % (20-40); Mean Corpuscular HGB Conc 33.3 g/dl (31.0-36.0); Mean Corpuscular Hemoglobin 29.9 pg (27.0-33.0); Mean Corpuscular Volume 89.7 fL (80.0-98.0); Mean Platelet Volume 9.7 fL (9.4-12.4); Monocytes Absolute Auto 0.6 X10*3/uL (0.1-1.2); Monocytes Percent Auto 11.5 % (2-11); Neutrophils Absolute Auto 3.6 x10*3/uL (2.0-8.3); Neutrophils Percent Auto 65.2 % (45-73); Platelet Count 235 X10*3/uL (160-400); Red Blood Count 3.01 X10*6/uL (4.60-5.80); Red Cell Distribution Width 13.6 % (11.0-16.0); White Blood Count 5.6 X10*3/uL (4.8-10.8)
[2023-06-19 06:18] LABS: Alanine Aminotransferase 17 U/L (0-40); Albumin Level 3.2 g/dL (3.5-5.0); Alkaline Phosphatase 43 U/L (39-117); Anion Gap 13 (12-20); Aspartate Amino Transferase 15 U/L (5-37); Bilirubin Total 0.3 mg/dL (0.0-1.0); Blood Urea Nitrogen 12 mg/dL (9-16); Calcium 8.8 mg/dL (8.4-10.2); Carbon Dioxide 26 mmol/L (22-29); Chloride 105 mmol/L (96-108); Creatinine Clr Calc Pharmacy 71.4; Estimated Glomerular Filt Rate > 60; Glucose Fasting 103 mg/dL (60-99); Potassium 3.7 mmol/L (3.3-5.1); Sodium 140 mmol/L (135-145); Total Protein 5.8 g/dL (6.5-8.0)
[2023-06-19] MEDS: 0.9 % Sodium Chloride Flush 3 ML SYRINGE IVFLUSH (08:29)
[2023-06-19] MEDS: Sodium Phosphate,Mono-Dibasic 133 ML ENEMA PR (10:18)
--- NOTE | 2023-06-19 10:30 | PC.NURSE ---
Pt remains NPO since midnight, completed 75% of bowel prep, stools are watery and light brown, enema ordered and given to Pt, Pt tolerated well, Stools now clear yellow, report given to Pre-op nurse, Pt to be picked up for procedure at 11:30.
--- NOTE | 2023-06-19 11:50 | HO.ANESPROP2 ---
HPI - Anesthesia Eval Consult details Narrative: Acute GI bleeding PMFSH Active Problems Active Problems: All Active Problems (Updated 06/18/23 @ 13:57 by Connie Atkins MD) Positive colorectal cancer screening using Cologuard test (Acute) Hydronephrosis (Acute) Bladder mass (Acute) Mass of gastroesophageal junction (Acute) Abnormal finding on imaging (Acute) Acute GI bleeding (Acute) Abdominal pain (Acute) Anemia (Acute) Erectile dysfunction (Acute) Past Medical History Medical History Hiatal hernia Erectile dysfunction Family History Family History Father Diabetes mellitus, Onset Age: 70 Mother No problems noted. Brother Acute myocardial infarction, Onset Age: 52 Family history of problems with anesthesia: No Surgical History Surgical History History of rectal surgery Hx of esophagogastroduodenoscopy History of Problems with Anesthesia: No Social History Social History Household Members: Spouse Housing: House Do you presently have visiting nurse or other home services: No Patient Tobacco Use Status: Current someday Tobacco user Tobacco use type: Cigarette Smoked in Last 30 Days: No e-Cigarette/Vaping Use: Never Used Patient Interested in Nicotine Replacement: No Second Hand Smoke Exposure: No Use of substances other than those prescribed or required for medical reasons: No Currently Displaying Signs/Symptoms of Drug Intoxication Withdrawal: No Any prior treatment program specific to substance use: No Have you been hit, kicked, punched, or otherwise hurt by someone within the past year? If so, by whom?: No Do you feel safe in your current relationship?: Yes Is there a partner from a previous relationship who is making you feel unsafe now?: No Are you made to feel afraid or neglected: No Are you DNR?: No Advance Directives: No Advance Directives Information Provided: No Do you have thoughts of harming others: None Do you have a plan to hurt others: No Plan Recently lost weight without trying: Unsure Eating poorly because of decreased appetite: Yes Nutrition Risks: Poor intake 0-25% >4 days Poor oral hygiene: No service: No Current occupational status: employed Cognitive needs: No Hearing needs: No Vision needs: Yes Meds Allergies Allergy/AdvReac Type Severity Reaction Status Date / Time No Known Allergies Allergy Verified 06/12/23 14:45 Active Medications: Current Medications Acetaminophen (Acetaminophen 325 Mg Tablet) 650 mg PO Q6H PRN PRN Reason: Pain, Mild (Pain Scale 1-3) Last Admin: 06/18/23 03:18 Dose: 650 mg Benzonatate (Benzonatate 100 Mg Capsule) 100 mg PO TID PRN PRN Reason: Cough Docusate Sodium (Docusate Sodium 100 Mg Capsule) 100 mg PO DAILY PRN PRN Reason: Constipation Fentanyl (Fentanyl Citrate/Pf 100 Mcg/2 Ml Vial) 25 mcg IVPUSH Q5M PRN; Protocol PRN Reason: Pain, Moderate(Pain Scale 4-6) Hydromorphone HCl (Hydromorphone Hcl 0.5 Mg/0.5 Ml Syringe) 0.5 mg IVPUSH Q5M PRN; Protocol PRN Reason: Pain, Severe (Pain Scale 7-10) Last Admin: 06/15/23 16:35 Dose: 0.5 mg Melatonin (Melatonin 3 Mg Tablet) 6 mg PO BEDTIME PRN PRN Reason: Insomnia Omeprazole (Omeprazole 20 Mg Capsule.Dr) 20 mg PO BID@0630,1630 [facility] Last Admin: 06/19/23 06:00 Dose: Not Given Ondansetron HCl (Ondansetron Hcl 4 Mg/2 Ml Vial) 4 mg IVPUSH Q8H PRN PRN Reason: Nausea and Vomiting Ondansetron HCl (Ondansetron Hcl 4 Mg/2 Ml Vial) 4 mg IVPUSH ONCE PRN PRN Reason: Nausea and Vomiting Sodium Chloride (0.9 % Sodium Chloride Flush 3 Ml Syringe) 3 ml IVFLUSH QSHIFT [facility] Last Admin: 06/19/23 08:29 Dose: 3 ml Home Medications Medication Instructions Recorded Confirmed Last Taken Type Candibactin 1 cap PO DAILY 06/12/23 06/12/23 Unknown History Ortho Biotic 1 cap PO DAILY 06/12/23 06/12/23 Unknown History Spectrazyme Metagest 1 cap PO DAILY 06/12/23 06/12/23 Unknown History Exam Height,Weight and Vital Signs: Height 5 ft 7 in Weight 69.8 kg Last Vital Signs Temp 96.9 F 06/19/23 07:29 Pulse 64 06/19/23 07:29 Resp 12 06/19/23 07:29 BP 124/62 06/19/23 07:29 Pulse Ox 93 06/19/23 07:29 O2 Del Method Room Air 06/19/23 07:29 Pertinent Lab Results Pertinent Lab Results: Laboratory Tests 06/12/23 06/12/23 06/13/23 18:21 22:12 05:57 WBC 7.2 6.1 RBC 1.93 L 2.16 L Hgb 6.0 L* 6.7 L* Hct 18.2 L* 20.2 L* MCV 94.3 93.5 MCH 31.1 31.0 MCHC 33.0 33.2 RDW 12.7 12.6 Plt Count 328 283 MPV 9.9 9.7 Immature Gran % (Auto) 0.3 Neut % (Auto) 72.2 Lymph % (Auto) 16.9 L [place] % (Auto) 9.5 Eos % (Auto) 0.8 Baso % (Auto) 0.3 Lymph # (Auto) 1.2 [place] # (Auto) 0.7 Eos # (Auto) 0.1 Baso # (Auto) 0.0 Abs Immat Gran (auto) 0.02 Absolute Neuts (auto) 5.2 Absolute Nucleated RBC 0.000 0.000 Nucleated RBC % (auto) 0.0 0.0 PT 13.0 INR 1.1 APTT 30.1 Sodium 134 L 135 Potassium 3.8 4.2 Chloride 101 104 Carbon Dioxide 25 26 Anion Gap 12 9 L BUN 19 H 15 Creatinine 1.12 1.18 Estim Creat Clear Calc 57.3 54.4 Estimated GFR > 60 > 60 Random Glucose 106 103 Fasting Glucose Calcium 9.7 D 9.1 D Magnesium 1.8 Total Bilirubin 0.2 AST 21 ALT 20 Alkaline Phosphatase 42 Troponin I High Sens 7.6 Total Protein 6.9 Albumin 3.8 Lipase 87 H Stool Occult Blood POSITIVE Blood Type AB Negative Antibody Screen NEGATIVE Crossmatch See Detail 06/13/23 06/14/23 06/14/23 12:02 06:03 06:03 WBC Cancelled 6.0 RBC Cancelled Hgb 8.1 L D Hct 24.7 L D MCV MCH MCHC RDW Plt Count MPV Immature Gran % (Auto) Neut % (Auto) Lymph % (Auto) [place] % (Auto) Eos % (Auto) Baso % (Auto) Lymph # (Auto) [place] # (Auto) Eos # (Auto) Baso # (Auto) Abs Immat Gran (auto) Absolute Neuts (auto) Absolute Nucleated RBC Nucleated RBC % (auto) PT INR APTT Sodium Potassium Chloride Carbon Dioxide Anion Gap BUN Creatinine Estim Creat Clear Calc Estimated GFR Random Glucose Fasting Glucose Calcium Magnesium Total Bilirubin AST ALT Alkaline Phosphatase Troponin I High Sens Total Protein Albumin Lipase Stool Occult Blood Blood Type Antibody Screen Crossmatch 06/14/23 06/14/23 06/14/23 06:03 06:03 06:03 WBC RBC 2.57 L Hgb Cancelled 7.7 L Hct Cancelled 23.2 L MCV Cancelled MCH MCHC RDW Plt Count MPV Immature Gran % (Auto) Neut % (Auto) Lymph % (Auto) [place] % (Auto) Eos % (Auto) Baso % (Auto) Lymph # (Auto) [place] # (Auto) Eos # (Auto) Baso # (Auto) Abs Immat Gran (auto) Absolute Neuts (auto) Absolute Nucleated RBC Nucleated RBC % (auto) PT INR APTT Sodium Potassium Chloride Carbon Dioxide Anion Gap BUN Creatinine Estim Creat Clear Calc Estimated GFR Random Glucose Fasting Glucose Calcium Magnesium Total Bilirubin AST ALT Alkaline Phosphatase Troponin I High Sens Total Protein Albumin Lipase Stool Occult Blood Blood Type Antibody Screen Crossmatch 06/14/23 06/14/23 06/14/23 06:03 06:03 06:03 WBC RBC Hgb Hct MCV 90.3 MCH Cancelled 30.0 MCHC Cancelled 33.2 RDW Cancelled Plt Count MPV Immature Gran % (Auto) Neut % (Auto) Lymph % (Auto) [place] % (Auto) Eos % (Auto) Baso % (Auto) Lymph # (Auto) [place] # (Auto) Eos # (Auto) Baso # (Auto) Abs Immat Gran (auto) Absolute Neuts (auto) Absolute Nucleated RBC Nucleated RBC % (auto) PT INR APTT Sodium Potassium Chloride Carbon Dioxide Anion Gap BUN Creatinine Estim Creat Clear Calc Estimated GFR Random Glucose Fasting Glucose Calcium Magnesium Total Bilirubin AST ALT Alkaline Phosphatase Troponin I High Sens Total Protein Albumin Lipase Stool Occult Blood Blood Type Antibody Screen Crossmatch 06/14/23 06/14/23 06/14/23 06:03 06:03 06:03 WBC RBC Hgb Hct MCV MCH MCHC RDW 13.5 Plt Count Cancelled 270 MPV Cancelled 9.7 Immature Gran % (Auto) 0.2 Neut % (Auto) 66.6 Lymph % (Auto) 18.7 L [place] % (Auto) 12.2 H Eos % (Auto) 1.8 Baso % (Auto) 0.5 Lymph # (Auto) 1.1 L [place] # (Auto) 0.7 Eos # (Auto) 0.1 Baso # (Auto) 0.0 Abs Immat Gran (auto) 0.01 Absolute Neuts (auto) 4.0 Absolute Nucleated RBC Cancelled Nucleated RBC % (auto) PT INR APTT Sodium Potassium Chloride Carbon Dioxide Anion Gap BUN Creatinine Estim Creat Clear Calc Estimated GFR Random Glucose Fasting Glucose Calcium Magnesium Total Bilirubin AST ALT Alkaline Phosphatase Troponin I High Sens Total Protein Albumin Lipase Stool Occult Blood Blood Type Antibody Screen Crossmatch 06/14/23 06/14/23 06/15/23 06:03 06:03 05:27 WBC Cancelled RBC Hgb Hct MCV MCH MCHC RDW Plt Count MPV Immature Gran % (Auto) Neut % (Auto) Lymph % (Auto) [place] % (Auto) Eos % (Auto) Baso % (Auto) Lymph # (Auto) [place] # (Auto) Eos # (Auto) Baso # (Auto) Abs Immat Gran (auto) Absolute Neuts (auto) Absolute Nucleated RBC 0.000 Nucleated RBC % (auto) Cancelled 0.0 PT INR APTT Sodium Potassium Chloride Carbon Dioxide Anion Gap BUN Creatinine Estim Creat Clear Calc Estimated GFR Random Glucose Fasting Glucose Calcium Magnesium Total Bilirubin AST ALT Alkaline Phosphatase Troponin I High Sens Total Protein Albumin Lipase Stool Occult Blood Blood Type Antibody Screen Crossmatch 06/15/23 06/15/23 06/15/23 05:27 05:27 05:27 WBC 6.1 RBC Cancelled 2.64 L Hgb Cancelled 8.1 L Hct Cancelled MCV MCH MCHC RDW Plt Count MPV Immature Gran % (Auto) Neut % (Auto) Lymph % (Auto) [place] % (Auto) Eos % (Auto) Baso % (Auto) Lymph # (Auto) [place] # (Auto) Eos # (Auto) Baso # (Auto) Abs Immat Gran (auto) Absolute Neuts (auto) Absolute Nucleated RBC Nucleated RBC % (auto) PT INR APTT Sodium Potassium Chloride Carbon Dioxide Anion Gap BUN Creatinine Estim Creat Clear Calc Estimated GFR Random Glucose Fasting Glucose Calcium Magnesium Total Bilirubin AST ALT Alkaline Phosphatase Troponin I High Sens Total Protein Albumin Lipase Stool Occult Blood Blood Type Antibody Screen Crossmatch 06/15/23 06/15/23 06/15/23 05:27 05:27 05:27 WBC RBC Hgb Hct 24.3 L MCV Cancelled 92.0 MCH Cancelled 30.7 MCHC Cancelled RDW Plt Count MPV Immature Gran % (Auto) Neut % (Auto) Lymph % (Auto) [place] % (Auto) Eos % (Auto) Baso % (Auto) Lymph # (Auto) [place] # (Auto) Eos # (Auto) Baso # (Auto) Abs Immat Gran (auto) Absolute Neuts (auto) Absolute Nucleated RBC Nucleated RBC % (auto) PT INR APTT Sodium Potassium Chloride Carbon Dioxide Anion Gap BUN Creatinine Estim Creat Clear Calc Estimated GFR Random Glucose Fasting Glucose Calcium Magnesium Total Bilirubin AST ALT Alkaline Phosphatase Troponin I High Sens Total Protein Albumin Lipase Stool Occult Blood Blood Type Antibody Screen Crossmatch 06/15/23 06/15/23 06/15/23 05:27 05:27 05:27 WBC RBC Hgb Hct MCV MCH MCHC 33.3 RDW Cancelled 13.3 Plt Count Cancelled 280 MPV Cancelled Immature Gran % (Auto) Neut % (Auto) Lymph % (Auto) [place] % (Auto) Eos % (Auto) Baso % (Auto) Lymph # (Auto) [place] # (Auto) Eos # (Auto) Baso # (Auto) Abs Immat Gran (auto) Absolute Neuts (auto) Absolute Nucleated RBC Nucleated RBC % (auto) PT INR APTT Sodium Potassium Chloride Carbon Dioxide Anion Gap BUN Creatinine Estim Creat Clear Calc Estimated GFR Random Glucose Fasting Glucose Calcium Magnesium Total Bilirubin AST ALT Alkaline Phosphatase Troponin I High Sens Total Protein Albumin Lipase Stool Occult Blood Blood Type Antibody Screen Crossmatch 06/15/23 06/15/23 06/15/23 05:27 05:27 05:27 WBC RBC Hgb Hct MCV MCH MCHC RDW Plt Count MPV 9.8 Immature Gran % (Auto) 0.3 Neut % (Auto) 67.3 Lymph % (Auto) 17.8 L [place] % (Auto) 12.0 H Eos % (Auto) 2.1 Baso % (Auto) 0.5 Lymph # (Auto) 1.1 L [place] # (Auto) 0.7 Eos # (Auto) 0.1 Baso # (Auto) 0.0 Abs Immat Gran (auto) 0.02 Absolute Neuts (auto) 4.1 Absolute Nucleated RBC Cancelled 0.000 Nucleated RBC % (auto) Cancelled 0.0 PT INR APTT Sodium 138 Potassium 3.8 Chloride 106 Carbon Dioxide 25 Anion Gap 11 L BUN 10 Creatinine 1.06 Estim Creat Clear Calc 60.6 Estimated GFR > 60 Random Glucose 105 Fasting Glucose Calcium 8.6 Magnesium Total Bilirubin AST ALT Alkaline Phosphatase Troponin I High Sens Total Protein Albumin Lipase Stool Occult Blood Blood Type Antibody Screen Crossmatch 06/16/23 06/17/23 06/17/23 05:32 05:30 10:27 WBC 7.8 6.0 RBC 2.68 L 2.54 L Hgb 8.0 L 7.5 L Hct 24.5 L 23.2 L MCV 91.4 91.3 MCH 29.9 29.5 MCHC 32.7 32.3 RDW 13.2 13.2 Plt Count 291 266 MPV 9.5 10.0 Immature Gran % (Auto) Neut % (Auto) Lymph % (Auto) [place] % (Auto) Eos % (Auto) Baso % (Auto) Lymph # (Auto) [place] # (Auto) Eos # (Auto) Baso # (Auto) Abs Immat Gran (auto) Absolute Neuts (auto) Absolute Nucleated RBC 0.000 0.000 Nucleated RBC % (auto) 0.0 0.0 PT INR APTT Sodium 137 Potassium 4.1 Chloride 106 Carbon Dioxide 26 Anion Gap 9 L BUN 12 Creatinine 1.07 Estim Creat Clear Calc 60.0 Estimated GFR > 60 Random Glucose 104 Fasting Glucose Calcium 8.8 Magnesium Total Bilirubin AST ALT Alkaline Phosphatase Troponin I High Sens Total Protein Albumin Lipase Stool Occult Blood Blood Type AB Negative Antibody Screen NEGATIVE Crossmatch See Detail 06/18/23 06/19/23 05:48 05:49 WBC 6.2 5.6 RBC 3.09 L D 3.01 L Hgb 9.1 L D 9.0 L Hct 27.2 L 27.0 L MCV 88.0 89.7 MCH 29.4 29.9 MCHC 33.5 33.3 RDW 13.6 13.6 Plt Count 258 235 MPV 9.9 9.7 Immature Gran % (Auto) 0.3 0.2 Neut % (Auto) 65.7 65.2 Lymph % (Auto) 20.1 19.7 L [place] % (Auto) 11.3 H 11.5 H Eos % (Auto) 2.1 2.7 Baso % (Auto) 0.5 0.7 Lymph # (Auto) 1.2 1.1 L [place] # (Auto) 0.7 0.6 Eos # (Auto) 0.1 0.2 Baso # (Auto) 0.0 0.0 Abs Immat Gran (auto) 0.02 0.01 Absolute Neuts (auto) 4.1 3.6 Absolute Nucleated RBC 0.000 0.000 Nucleated RBC % (auto) 0.0 0.0 PT INR APTT Sodium 139 140 Potassium 3.3 3.7 Chloride 104 105 Carbon Dioxide 27 26 Anion Gap 11 L 13 BUN 17 H 12 Creatinine 0.93 0.90 Estim Creat Clear Calc 69.1 71.4 Estimated GFR > 60 > 60 Random Glucose Fasting Glucose 103 H 103 H Calcium 8.8 8.8 Magnesium Total Bilirubin 0.3 0.3 AST 16 15 ALT 14 17 Alkaline Phosphatase 41 43 Troponin I High Sens Total Protein 5.8 L 5.8 L Albumin 3.2 L 3.2 L Lipase Stool Occult Blood Blood Type Antibody Screen Crossmatch Airway Mallampati Class: II TM Dist: >3cm Neck ROM: Full Loose/Missing/Broken Teeth: Yes Heart: [id number] Lungs: cta b/l Assessment and Plan Assessment Anesthesia Assessment: Anesthesia Plan Discussed and Chart Reviewed Final Anesthetic Review Family History of Problems with Anesthesia: No History of Problems with Anesthesia: No NPO: Yes ASA Class: III Final Preanesthetic Review: No Changes in Pt Med Stat, Meds/Allgs Chart Reviewed, Consent Obtained/Reviewed and Anes Risks/Benef Reviewed Patient Risk: Intermediate Procedure Risk: Intermediate Assessment/Block/Sedation in SS: Assess/Block/Sedation-SS Anesthetic Plan Anesthetic Plan: MAC: Disposition: Standard PACU
--- NOTE | 2023-06-19 12:53 | P.DS_ITS ---
DS: Providers Provider Date of Service: 06/19/23 Date of admission: 06/12/23 23:01 Date of discharge: 06/19/23 Primary care physician: Connie Atkins MD Consults: 06/12/23 23:06 Consult to Gastroenterology Routine Consulting Provider: Tonia Waggoner Reason for consultation: Symptomatic anemia, mass at GE junction Consult to Urology Routine Consulting Provider: Mathew Cueva Reason for consultation: ?right urothelial neoplasm, hydronephrosis, obstruction Attending physician on discharge: Finn Perry Discharging clinician: Didi Zuñiga DS: Diagnosis Discharge Diagnosis (1) Hydronephrosis: Status: Acute (2) Bladder mass: Status: Acute (3) Mass of gastroesophageal junction: Status: Acute (4) Anemia: Status: Acute DS: Summary Hospital Course Hospital Course: From H&P on the day of admission Pt is a 72-year-old male with a PMH significant for?congenital hiatal hernia but otherwise healthly who presents to the ED after outpatient labs showed low blood levels. Pt reports he began having abdominal issues in December-January of last year with mild cramping and abdominal pain. Thought it was his hiatal hernia acting up. [place]son some relief after taking TUMS and losing some weight. [place] overall well for awhile until 1-2 months ago when he began noticing a decrease in appetite and that he would get full quickly. Occasional central abdominal discomfort/pain. During this past week patient has felt increasingly fatigued and weak. Pt has seen both his PCP and plant operations engineer due to persistent symptoms. His plant operations engineer ordered outside labs which showed H&H of 5.9/18.5 and was told come to the ED for further evaluation. Patient reports he is experienced some nausea but no vomiting over the past few days. Denies hematochezia, melena, hemoptysis, hematemesis,. Denies shortness of breath or cough. No dysphagia or odynophagia. Denies chest pain/pressure, palpitations. No fever, chills. Denies urologic symptoms: No flank pain, polyuria, dysuria, or hematuria. No changes to bowel or bladder habits. In the ED pt was afebrile but tachycardic up to 102, and slightly hypertensive up to 140/73. Labs were significant for H&H 6.0/18.2, creatinine 1.12 (up from 0.74 on 10/02/22), lipase 87. No leukocytosis. No significant electrolyte abnormalities. Stool positive for occult blood. CT?of abdomen pelvis with multiple findings: Concern for soft tissue mass of the distal esophagus/gastroesophageal junction; diffuse circumferential wall thickening of the distal esophagus and gastric wall secondary to nondistention versus diffuse infiltrating disease process; moderate to severe right renal hydronephrosis and hydroureter with no obstructing stone, but soft tissue thickening with a possible soft tissue mass of the right ureteral vesicular junction concerning for possible urethral neoplasm; perinephric fat stranding around the right kidney and low-attenuation of its cortex suggestive of a high degree of obstruction; an infrarenal fusiform aortic aneurysm of 4.4 cm axially and about 6 cm cranial caudally. EKG demonstrated normal sinus rhythm with nonspecific ST abnormalities. Pt was treated with Protonix and transfused 1 unit PRBCs. Pt will be admitted to the hospital for treatment and further evaluation of symptomatic anemia likely secondary to GI bleed. Symptomatic anemia/gastric mass Received 6 units PRBC . H/H has remained stable. s/p EGD with biopsy 06/13 with cardia mass just below GE junction, duodenitis but no active bleeding on exam. initial pathology returned negative for malignancy, likely biopsy is not deep enough and rebiopsy required. Also had had + cologuard last year and with persistent anemia GI recommended for repeat EGD with repeat biopsies and Colonoscopy which he underwent on 06/18. Colonoscopy noted to have 1 polyp in the cecum which was removed 2 additional polyps s/p hot snare polypectomy, large internal hemorrhoids with concern for thrombosis. seen by general surgery, no indication for surgical intervention at this time, recommend sitz baths for inflammation and can consider surgical evaluation again in the future if the hemorrhoids become problematic. anemia likely combination of bleeding from ulcerated mass, large friable polyp and hemorrhoids. Outpatient follow-up in office in 1-2 weeks to review pathology and likely will need Oncology plus or minus surgery follow-up as well depending on pathology report. Also had barium swallow with significant disease burden. He was evaluated by speech pathology and recommended regular diet with thin liquids. No signs of aspiration. Right kidney obstruction CT showing likely right kidney obstruction, moderate to severe hydronephrosis and hydroureter with possible urothelial neoplasm. seen by urology, s/p right stent placement - will need follow up in 4-6 weeks for stent removal and assess for resolution of hydro Pathology negative for high grade urothelial carcinoma Aortic aneurism CT found infrarenal fusiform aortic aneurysm of 4.4 cm - recommend outpatient follow up Time Attestation Total time managing care of this patient today: 38 mintues. Discharge Coordination Time (in mins): 38 Quality: Safe Use of Opioids Does Pt have an Active Cancer Diagnosis on the Problem List?: No Quality: Stroke Does the patient have a stroke diagnosis?: No Physical Exam Vital Signs: Vital Signs: Last Vital Signs Temp 98.1 F 06/19/23 11:51 Pulse 72 06/19/23 11:51 Resp 18 06/19/23 11:51 BP 131/75 06/19/23 11:51 Pulse Ox 98 06/19/23 11:51 O2 Del Method Room Air 06/19/23 11:51 BMI result Body Mass Index 24.1 Const: General: cooperative, comfortable, no acute distress, alert and awake Nutritional Appearance: thin Orientation/consciousness: patient oriented x3 Resp: Effort & Inspection: normal respiratory effort, able to speak in complete sentences, no respiratory distress and no use of accessory muscles Cardio: Rate: regular rate GI: Inspection: No distended Palpation (GI): Soft to palpation and nontender Neuro: General: patient oriented x3, moves all extremities and CN's II-XI intact bilaterally Extrem: General: Yes no pedal edema DS: Data Data Completed and Pending Completed studies during hospitalization [Text1]: Pending at discharge 06/14/23 10:26 Surgical [PTH] Routine 06/15/23 16:21 Surgical [PTH] Routine Labs on day of discharge: Laboratory Results - last 24 hr 06/19/23 05:49 WBC 5.6 RBC 3.01 L Hgb 9.0 L Hct 27.0 L MCV 89.7 MCH 29.9 MCHC 33.3 RDW 13.6 Plt Count 235 MPV 9.7 Immature Gran % (Auto) 0.2 Neut % (Auto) 65.2 Lymph % (Auto) 19.7 L [place] % (Auto) 11.5 H Eos % (Auto) 2.7 Baso % (Auto) 0.7 Lymph # (Auto) 1.1 L [place] # (Auto) 0.6 Eos # (Auto) 0.2 Baso # (Auto) 0.0 Abs Immat Gran (auto) 0.01 Absolute Neuts (auto) 3.6 Absolute Nucleated RBC 0.000 Nucleated RBC % (auto) 0.0 Sodium 140 Potassium 3.7 Chloride 105 Carbon Dioxide 26 Anion Gap 13 BUN 12 Creatinine 0.90 Estim Creat Clear Calc 71.4 Estimated GFR > 60 Fasting Glucose 103 H Calcium 8.8 Total Bilirubin 0.3 AST 15 ALT 17 Alkaline Phosphatase 43 Total Protein 5.8 L Albumin 3.2 L Discharge Plan Discharge Anticipated Discharge Date/Time: 06/19/23 15:31 Patient Disposition: Home, Self-Care Discharge Diagnosis: symptomatic anemia gastric mass obstructive uropathy s/p stent placement Referrals: Mathew Cueva MD [Physician] - 4 Weeks Connie Atkins MD [Primary Care Provider] - 1 Week Tonia Waggoner MD [Physician] - 1 Week Kirit Garcia MD [Physician] - None () Discharge Medications: New (DME) sitz bath Kit See Rx Instructions .Route Qty: 1 0RF Rx Instructions: As directed Continued Candibactin 1 cap PO DAILY Ortho Biotic 1 cap PO DAILY Spectrazyme Metagest 1 cap PO DAILY omeprazole 20 mg capsule,delayed release(DR/EC) 20 mg PO BID Qty: 60 0RF Discharge Orders: Discharge Order (Routine); Ordered 06/19/23 Ordered By: Didi Zuñiga Activity on Discharge: As tolerated Stand Alone Forms: Patient Portal Discharge page Care Plan Goals: see below Health Concerns: Anemia - improved with transfusion GE junction mass - follow up for biopsy results obstructive uropathy s/p right stent placement aortic aneurism - outpatient follow up Hemorrhoids Plan of Treatment: Outpatient follow up with GI to review biopsy results - call to schedule apt. Outpatient follow-up with Urology in 4-6 weeks for stent removal and to assess for resolution of hydronephrosis - call to schedule apt Call to schedule appointment with PCP for hemorrhoids - can use sitz baths - fill with warm water and epsom salt (op tional) and sit in it for 10 minutes at night and more frequently if needed can follow up with general surgery as needed if hemorrhoids become bothersome Assessment: see discharge summary Patient Instructions: Sitz Bath (DC)
--- NOTE | 2023-06-19 14:16 | P.OP_ITS ---
Operative Note Operative Note Date of Service: 06/19/23 Narrative: Procedure: Upper endoscopy and colonoscopy Indication: Gastric mass, anemia Endoscopist: Tonia Waggoner MD Anesthesia Provider: Anesthesia type: MAC Instrument: Olympus [id number] ?? EGD Procedure:?? The procedure, indications, preparation and potential complications were reviewed with the patient, who indicated understanding and gave written informed consent to proceed. A physical exam was performed. The endoscope was introduced through the mouth, and advanced to the duodenum. The mucosa was carefully examined on slow withdrawal of the endoscope. The patient tolerated the procedure well. There were no immediate complications.? ? EGD Findings:? * Esophagus:? Normal esophageal mucosa. No varices were noted. Z line was at 39 cm and clear. * Stomach:? There was a circumferential subepithelial mass arising just below GE junction in the cardia with edema and thickening of overlying folds and mucosa. There is prominent outgrowth along the lesser curvature from 40 to 43 cm as well as ulceration along the greater curvature from 45 to 50 cm. This was spontaneously oozing. The edges were biopsied previous time and were inadequate. Therefore the ulceration was biopsied in bite on bite fashion to attempt to capture the submucosa. Further [id number]-pe-[id number] mapping biopsies were taken from the remaining stomach as per [facility] protocol. The rugae were enlarged and difficult to insufflate in the fundus with relative flattening near the antrum. * Duodenum: Normal duodenal mucosa to the extent visualised. Colonoscopy Procedure: The patient was then turned for the colonoscopy. A digital rectal exam was performed which was abnormal for a 2 cm thrombosed hemorrhoid. A distal attachment cap was affixed to the tip of the adult colonoscope which was then inserted through the anus and advanced through the colon to the cecum at 85 cm. Appendiceal orifice and ileocecal valve were identified. Mucosa was carefully examined under high definition white light as the instrument was slowly withdrawn in a retrograde panoramic fashion. Retroflexion was performed in the rectum. The procedure was not difficult. There were no immediate obvious complications. The quality of the prep was BBPS: 2+2+3 = adequate Withdrawal time 32 minutes. Limitations: No limitations Colonoscopy Findings: Mucosa: Colon and terminal ileum mucosa was endoscopically normal. Protruding lesions: * 1 sessile polyp of size 4mm in the cecum. Cold snare polypectomy was performed. The polyp was removed but not retrieved. * 2 pedunculated polyps of size 13 mm in 15 mm in the transverse colon. Hot snare polypectomy was performed. The polyps were completely removed and retrieved. Some bleeding was noted after removal of the 15 mm polyp and therefore soft coagulation cautery was applied to the stalk and then a clip was placed with complete hemostasis. * One pedunculated polyp of size 30 mm in the sigmoid colon at 25 cm which was very inflammed and friable. 3 cc of epinephrine was injected in the stalk as well as the polyp itself. Hot snare polypectomy was performed. The polyp was completely removed and retrieved. * Large internal hemorrhoids with stigmata of recent bleeding including prolapsed hemorrhoid as aforementioned. Impressions:? * Normal esophagus * Gastric mass with ulceration (biopsy, hemospray) * Normal duodenum * Total of 4 polyps removed (3 large ones retrieved as above) * Thrombosed hemorrhoid Recommendations: - Anemia likely combination of bleeding from ulcerated mass, large friable polyp and hemorrhoids - Follow path results - Surgery consultation for thrombosed hemorrhoid - Follow up in office in 1-2 weeks - Will likely need Onc +/- surgery follow up as well depending on path
--- NOTE | 2023-06-19 14:16 | MHC.SHP ---
Pre-Procedural Eval Section A - 24 Hr Update-Section A only Date of Service: 06/19/23 The patient is an INPATIENT: Yes The patient has been examined within 24 hours of the surgical procedure. The History & Physical has been completed within 30 days and I have reviewed it.: Yes Section B - Complete if H&P > 30 days Chief Complaint: Symptomatic anemia, likely GI bleed Allergies: Allergies Allergy/AdvReac Type Severity Reaction Status Date / Time No Known Allergies Allergy Verified 06/19/23 11:58 Plan Diagnosis/Plan: Unchanged I have reviewed the history and physical and performed a pertinent physical examination on my patient. No changes have occurred unless specified. Time Spent With Patient Time: Total time managing care of this patient today ____ minutes.
--- NOTE | 2023-06-19 14:41 | HO.PM.IMPN ---
Subjective Subjective Date of Service: 06/19/23 Interval History: seen and examined this morning follow up for anemia, GE junction mass feeling well, tolerated prep ok plan for repeat EGD and colonoscopy today Review of Systems Review of Systems: Yes all other systems are reviewed and are negative Constitutional Constitutional: Denies chills and Denies fever(s) Cardiovascular Cardiovascular: Denies chest pain, Denies palpitations and Denies dyspnea Respiratory Respiratory: Denies cough and Denies dyspnea Endocrine Endocrine: Denies palpitations Physical Exam Vital Signs: Vital Signs: Last Vital Signs Temp 98 F 06/19/23 14:18 Pulse 70 06/19/23 14:33 Resp 16 06/19/23 14:33 BP 162/72 H 06/19/23 14:33 Pulse Ox 98 06/19/23 14:33 O2 Del Method Room Air 06/19/23 14:33 O2 Flow Rate 4 06/19/23 14:18 BMI result Body Mass Index 24.1 Const: General: cooperative, comfortable, no acute distress, alert and awake Nutritional Appearance: thin Orientation/consciousness: patient oriented x3 Resp: Effort & Inspection: normal respiratory effort, able to speak in complete sentences, no respiratory distress and no use of accessory muscles Cardio: Rate: regular rate GI: Inspection: No distended Palpation (GI): Soft to palpation and nontender Neuro: General: patient oriented x3, moves all extremities and CN's II-XI intact bilaterally Extrem: General: Yes no pedal edema Objective Data Active Medications Acetaminophen (Acetaminophen 325 Mg Tablet) 650 mg PO Q6H PRN PRN Reason: Pain, Mild (Pain Scale 1-3) Last Admin: 06/18/23 03:18 Dose: 650 mg Documented By: ISAIAHQC Acetaminophen (Acetaminophen 325 Mg Tablet) 650 mg PO ONCE PRN PRN Reason: Pain, Mild (Pain Scale 1-3) Stop: 06/19/23 17:51 Benzonatate (Benzonatate 100 Mg Capsule) 100 mg PO TID PRN PRN Reason: Cough Docusate Sodium (Docusate Sodium 100 Mg Capsule) 100 mg PO DAILY PRN PRN Reason: Constipation Fentanyl (Fentanyl Citrate/Pf 100 Mcg/2 Ml Vial) 25 mcg IVPUSH Q5M PRN; Protocol PRN Reason: Pain, Moderate(Pain Scale 4-6) Hydromorphone HCl (Hydromorphone Hcl 0.5 Mg/0.5 Ml Syringe) 0.5 mg IVPUSH Q5M PRN; Protocol PRN Reason: Pain, Severe (Pain Scale 7-10) Last Admin: 06/15/23 16:35 Dose: 0.5 mg Documented By: KENNA Melatonin (Melatonin 3 Mg Tablet) 6 mg PO BEDTIME PRN PRN Reason: Insomnia Omeprazole (Omeprazole 20 Mg Capsule.Dr) 20 mg PO BID@0630,1630 [facility] Last Admin: 06/19/23 06:00 Dose: Not Given Documented By: RANDI Non-Admin Reason: NPO Ondansetron HCl (Ondansetron Hcl 4 Mg/2 Ml Vial) 4 mg IVPUSH Q8H PRN PRN Reason: Nausea and Vomiting Ondansetron HCl (Ondansetron Hcl 4 Mg/2 Ml Vial) 4 mg IVPUSH ONCE PRN PRN Reason: Nausea and Vomiting Ondansetron HCl (Ondansetron Hcl 4 Mg/2 Ml Vial) 4 mg IVPUSH ONCE PRN PRN Reason: Nausea and Vomiting Stop: 06/19/23 17:51 Sodium Chloride (0.9 % Sodium Chloride Flush 3 Ml Syringe) 3 ml IVFLUSH QSHIFT [facility] Last Admin: 06/19/23 08:29 Dose: 3 ml Documented By: HOMAR Labs 06/19/23 05:49 06/19/23 05:49 Labs: Laboratory Results - last 24 hr 06/19/23 05:49 MCV 89.7 MCH 29.9 MCHC 33.3 RDW 13.6 Plt Count 235 MPV 9.7 Immature Gran % (Auto) 0.2 Neut % (Auto) 65.2 Lymph % (Auto) 19.7 L [place] % (Auto) 11.5 H Eos % (Auto) 2.7 Baso % (Auto) 0.7 Lymph # (Auto) 1.1 L [place] # (Auto) 0.6 Eos # (Auto) 0.2 Baso # (Auto) 0.0 Abs Immat Gran (auto) 0.01 Absolute Neuts (auto) 3.6 Absolute Nucleated RBC 0.000 Nucleated RBC % (auto) 0.0 Anion Gap 13 Estim Creat Clear Calc 71.4 Estimated GFR > 60 Fasting Glucose 103 H Calcium 8.8 Total Bilirubin 0.3 AST 15 ALT 17 Alkaline Phosphatase 43 Total Protein 5.8 L Albumin 3.2 L Assessment and Plan (1) Hydronephrosis: Status: Acute (2) Bladder mass: Status: Acute (3) Mass of gastroesophageal junction: Status: Acute (4) Acute GI bleeding: Status: Acute Plan Pt is a 72-year-old male with a PMH significant for?congenital hiatal hernia but otherwise healthly who presents to the ED after outpatient labs showed low blood levels. Pt will be admitted to the hospital for treatment and further evaluation of symptomatic anemia likely secondary to GI bleed. Symptomatic anemia s/p 6 units PRBC H/H now stable s/p EGD with biopsy, no bleeding on exam - had + cologuard last year and with persistent anemia had repeat EGD and Colonoscopy 06/18 colonoscopy with large polyps which were removed as well as prolapsed and thrombosed hemorrhoid - surgical consult pending Gastric mass (by EGD) Barium swallow reviewed. significant disease burden seen by speech - tolerating regular diet s/p EGD with biopsy of mass, pathology negative - needs to be re-biopsied - had repeat EGD with repeat Bx today - follow up path report outpatient follow up with GI Right kidney obstruction CT showing likely right kidney obstruction, moderate to severe hydronephrosis and hydroureter with possible urothelial neoplasm seen by urology, s/p stent placement - will need follow up in 4-6 weeks for stent removal and assess for resolution of hydro Pathology negative for high grade urothelial carcinoma Aortic aneurism -CT found infrarenal fusiform aortic aneurysm of 4.4 cm -follow-up outpatient with vascular Full Code Pneumatic boots Continue hospital stay for treatment and further evaluation of symptomatic anemia likely secondary to GI bleed. Patient required hospitalization for close monitoring of blood levels, transfusion as necessary, specialist consultation, and further imaging. Quality Stroke Does the patient have a stroke diagnosis?: No VTE Prior VTE?: No VTE Risk Level:: Medical - moderate - high VTE Device Contraindication: N/A - Device Ordered VTE Drug Contraindication: Treatment Not Indicated
--- NOTE | 2023-06-19 15:12 | PM.CNGS ---
History of Present Illness Consult details Consult date: 06/19/23 Narrative: 72-year-old male admitted on 06/12/2023 because of dizziness, lightheadedness with note of anemia and hemoglobin of 5.9. He was transfused packed RBCs from then on. He also had a CT scan of the abdomen showing what appeared to be a mass in the GE junction or the distal esophagus. He underwent an EGD which showed a mass in the GE junction, circumferential and suspicious for a neoplastic process. Biopsies of these were taken. However the path report showed inflammatory changes. He was therefore brought back today for EGD and colonoscopy and a re-biopsy of the mass was done. His colonoscopy showed large hemorrhoids with question of thrombosis I was consulted. He does state that he has had hemorrhoids for a long time. He says that this bother him on and off with pain, and swelling. However, he is currently comfortable and denies significant problems with this acutely. He denies a history of travis hematochezia. His CAT scan also showed suggestion of a mass in the right ureter. Review of Systems Constitutional: Constitutional: Denies chills, Denies fever(s), Reports lethargy and Reports malaise Cardiovascular: Cardiovascular: Denies chest pain and Denies chest pain at rest Gastrointestinal: Gastrointestinal: Denies hematochezia Genitourinary: Genitourinary: Denies hematuria Musculoskeletal: Musculoskeletal: Reports muscle weakness PMFSH Past Medical History Medical History (Updated 06/19/23 @ 15:17 by Kirit Garcia MD) Hemorrhoids with complication Hemorrhoids Hiatal hernia Erectile dysfunction Family History Family History Father Diabetes mellitus, Onset Age: 70 Mother No problems noted. Brother Acute myocardial infarction, Onset Age: 52 Surgical History Surgical History History of rectal surgery Hx of esophagogastroduodenoscopy Social History Social History Household Members: Spouse Housing: House Do you presently have visiting nurse or other home services: No Patient Tobacco Use Status: Current someday Tobacco user Tobacco use type: Cigarette e-Cigarette/Vaping Use: Never Used Second Hand Smoke Exposure: No service: No Current occupational status: employed Cognitive needs: No Hearing needs: No Vision needs: Yes Meds Allergies Allergy/AdvReac Type Severity Reaction Status Date / Time No Known Allergies Allergy Verified 06/19/23 11:58 Active Medications: Current Medications Acetaminophen (Acetaminophen 325 Mg Tablet) 650 mg PO Q6H PRN PRN Reason: Pain, Mild (Pain Scale 1-3) Last Admin: 06/18/23 03:18 Dose: 650 mg Acetaminophen (Acetaminophen 325 Mg Tablet) 650 mg PO ONCE PRN PRN Reason: Pain, Mild (Pain Scale 1-3) Stop: 06/19/23 17:51 Benzonatate (Benzonatate 100 Mg Capsule) 100 mg PO TID PRN PRN Reason: Cough Docusate Sodium (Docusate Sodium 100 Mg Capsule) 100 mg PO DAILY PRN PRN Reason: Constipation Fentanyl (Fentanyl Citrate/Pf 100 Mcg/2 Ml Vial) 25 mcg IVPUSH Q5M PRN; Protocol PRN Reason: Pain, Moderate(Pain Scale 4-6) Hydromorphone HCl (Hydromorphone Hcl 0.5 Mg/0.5 Ml Syringe) 0.5 mg IVPUSH Q5M PRN; Protocol PRN Reason: Pain, Severe (Pain Scale 7-10) Last Admin: 06/15/23 16:35 Dose: 0.5 mg Melatonin (Melatonin 3 Mg Tablet) 6 mg PO BEDTIME PRN PRN Reason: Insomnia Omeprazole (Omeprazole 20 Mg Capsule.Dr) 20 mg PO BID@0630,1630 [facility] Last Admin: 06/19/23 06:00 Dose: Not Given Ondansetron HCl (Ondansetron Hcl 4 Mg/2 Ml Vial) 4 mg IVPUSH Q8H PRN PRN Reason: Nausea and Vomiting Ondansetron HCl (Ondansetron Hcl 4 Mg/2 Ml Vial) 4 mg IVPUSH ONCE PRN PRN Reason: Nausea and Vomiting Ondansetron HCl (Ondansetron Hcl 4 Mg/2 Ml Vial) 4 mg IVPUSH ONCE PRN PRN Reason: Nausea and Vomiting Stop: 06/19/23 17:51 Sodium Chloride (0.9 % Sodium Chloride Flush 3 Ml Syringe) [facility] Last Admin: 06/19/23 08:29 Dose: 3 ml Home Medications Medication Instructions Recorded Confirmed Last Taken Type Candibactin 1 cap PO DAILY 06/12/23 06/12/23 Unknown History Ortho Biotic 1 cap PO DAILY 06/12/23 06/12/23 Unknown History Spectrazyme Metagest 1 cap PO DAILY 06/12/23 06/12/23 Unknown History Physical Exam Vital Signs: Vital Signs: Last Vital Signs Temp 98.1 F 06/19/23 14:44 Pulse 64 06/19/23 14:44 Resp 16 06/19/23 14:44 BP 148/70 H 06/19/23 14:44 Pulse Ox 98 06/19/23 14:44 O2 Del Method Room Air 06/19/23 14:44 O2 Flow Rate 4 06/19/23 14:18 BMI result Body Mass Index 24.1 Const: General: comfortable and no acute distress Orientation/consciousness: patient oriented x3 Neck: Neck: Yes no lymphadenopathy Resp: Auscultation: clear to auscultation bilaterally Cardio: Rhythm: regular rhythm GI: Other: Rectal exam shows edematous, bulky hemorrhoids on the left and right side, nontender, erythematous, no signs of ischemia, no bleeding, appearing to be a mix of internal external with some prolapse Palpation (GI): Soft to palpation, nontender and no guarding Neuro: General: patient oriented x3 Results Labs 06/19/23 05:49 06/19/23 05:49 Labs: Abnormal lab results 06/19/23 Range/Units 05:49 RBC 3.01 L (4.60-5.80) X10*6/uL Hgb 9.0 L (14.0-18.0) g/dl Hct 27.0 L (42.0-52.0) % Lymph % (Auto) 19.7 L (20-40) % Kerr % (Auto) 11.5 H (2-11) % Lymph # (Auto) 1.1 L (1.2-4.9) X10*3/uL Fasting Glucose 103 H (60-99) mg/dL Total Protein 5.8 L (6.5-8.0) g/dL Albumin 3.2 L (3.5-5.0) g/dL Short CBC 06/19/23 Range/Units 05:49 WBC 5.6 (4.8-10.8) X10*3/uL Hgb 9.0 L (14.0-18.0) g/dl Hct 27.0 L (42.0-52.0) % Plt Count 235 (160-400) X10*3/uL BMP 06/19/23 05:49 Sodium 140 Potassium 3.7 Chloride 105 Carbon Dioxide 26 BUN 12 Creatinine 0.90 Calcium 8.8 Liver Function 06/19/23 Range/Units 05:49 Total Bilirubin 0.3 (0.0-1.0) mg/dL AST 15 (5-37) U/L ALT 17 (0-40) U/L Alkaline Phosphatase 43 (39-117) U/L Albumin 3.2 L (3.5-5.0) g/dL All other labs normal. Imaging Abdomen CT scan report/results: report reviewed and image reviewed CT scan - pelvis: report reviewed and image reviewed Assessment and Plan (1) Hemorrhoids with complication: Status: Acute Examination shows large external hemorrhoids and possible prolapsing internal hemorrhoids on both the left and right side. These are very bulky and appeared to be swollen and edematous. He does not have any significant complaints with this at this time. He said he is known about this hemorrhoids for a long time and these have not bothered him acutely. He does state that these become swollen on and off I have recommended hot Sitz baths for him at this time. I would not recommend acute surgical intervention. He does have other acute medical issues for now. I did tell him and his that I can see him in the future to review the option of hemorrhoidectomy down the line. Procedures Date of Service Date of Service: 06/23/23
--- NOTE | 2023-06-19 15:48 | MHC.CM.PN ---
PT WILL DC HOME TODAY WITH NO SERVICES VIA PRIVATE TRANSPORT
--- NOTE | 2023-07-10 16:24 | W.PM.OPN ---
Operative Note Operative Note Date of Service: 06/15/23 Narrative: PreOperative Diagnosis: Right hydroureteronephrosis, bladder thickening Post Operative Diagnosis: Right hydroureteronephrosis, bladder thickening Procedure: Cystoscopy, right retrograde, bladder biopsy Surgeon: Dr Mathew Cueva Anesthesia: LMA Indications for procedure: Present with CT scan showing right hydroureteronephrosis and bladder thickening concern for malignancy Procedure: After informed consent was verified the patient was brought to the operating room and placed in a supine position. Anesthesia was administered per protocol. The patient was placed in modified dorsal lithotomy position and prepped and draped in a sterile fashion. A safety pause time-out was performed. Laterality of procedure and antibiotics were confirmed, appropriate imaging was available A 22 Indonesian cystoscope was introduced per urethra. No abnormality was noted of urethra or bladder. Both ureteric orifices were seen in a normal position. The right ureter was cannulated with an open ended catheter and a retrograde examination was performed. Hydroureteronephrosis seen. No filling defects seen. Ureteric orifice appeared to be inflamed at trigone. Biopsy taken. Fulguration performed. . A Sensor guidewire was placed under fluoroscopy and a good coil was seen within the renal pelvis. A 6 Indonesian by 24 cm double J stent was advanced over the wire and up to the level of the renal pelvis under fluoroscopic and direct visualization. The stent was seen with appropriate coil within the renal pelvis and in the bladder after deployment. The patient tolerated the procedure well and was transferred in a stable condition to the recovery area. Pathology: Bladder biopsy Drains: Drain as above
== END 2023-06-19 16:38 | disposition home or self-care (01) | DRG 988 ==
LOC: HO.ED 21:53 → HO.EDOVER 23:15 → HO.S3 06-13 00:09
PROVIDERS: Hospitalist; Internal Medicine; Nurse Practitioner Acute Care; Physician Assistant; Physician Assistant Medical; Student in an Organized Health Care Education/Training Program; Urology; Admitting Provider Student in an Organized Health Care Education/Training Program; Emergency Provider Emergency Medicine; PCP Internal Medicine; Visit Provider Physician Assistant Medical
PROC: 0DJ08ZZ Inspection of Upper Intestinal Tract, Via Natural or Artificial Opening Endoscopic (ICD-10-PCS; CPT 43235; principal; 2023-06-14 10:00)
PROC: 0T5B8ZZ Destruction of Bladder, Via Natural or Artificial Opening Endoscopic (ICD-10-PCS; principal; 2023-06-15 15:10)
PROC: 0DB48ZX Excision of Esophagogastric Junction, Via Natural or Artificial Opening Endoscopic, Diagnostic (ICD-10-PCS; principal; 2023-06-19 12:30)
DX: K29.81 Duodenitis with bleeding (principal); D62 Acute posthemorrhagic anemia; N13.30 Unspecified hydronephrosis; I71.43 Infrarenal abdominal aortic aneurysm, without rupture; K63.5 Polyp of colon; D12.0 Benign neoplasm of cecum; K64.5 Perianal venous thrombosis; Z87.891 Personal history of nicotine dependence; Z79.899 Other long term (current) drug therapy
CPT/HCPCS: 36415; 74177; 74240; 80048; 80053; 81445; 82272; 82642; 82670; 82681; 83001; 83002; 83525; 83690; 83735; 84402; 84403; 84484; 85014; 85018; 85025; 85027; 85610; 85730; 86850; 86900; 86901; 86923; 88112; 88305; 88313; 88341; 88342; 88360; 88361; 88374; 88377; 92526; 92610; 93005; 99285; C1758; C1769; C2617; C9113; J0171; J1100; J1170; J1940; J1956; J2371; J2405; J2704; J3010; J7120; P9016; Q9967

== ENCOUNTER → 2023-06-12 18:31 | Outpatient (BNV) | payer OTHER, MEDICARE, SELFPAY | PROVIDERS: Admitting Provider Student in an Organized Health Care Education/Training Program; Emergency Provider Emergency Medicine; PCP Internal Medicine; Visit Provider Internal Medicine Cardiovascular Disease | DX: R94.31 Abnormal electrocardiogram [ECG] [EKG] (principal) | CPT/HCPCS: 93010 ==

== ENCOUNTER 2023-06-12 23:01 | Outpatient (BNV) | payer MEDICARE, OTHER, MEDICAID, SELFPAY | END 2023-06-16 12:00 | PROVIDERS: Admitting Provider Student in an Organized Health Care Education/Training Program; Emergency Provider Emergency Medicine; PCP Internal Medicine; Visit Provider Physician Assistant Surgical | DX: K22.9 Disease of esophagus, unspecified (principal) | CPT/HCPCS: 74246 ==

== ENCOUNTER → 2023-06-12 23:01 | Outpatient (BNV) | payer MEDICARE, OTHER, SELFPAY | PROVIDERS: Admitting Provider Student in an Organized Health Care Education/Training Program; Emergency Provider Emergency Medicine; PCP Internal Medicine; Visit Provider Student in an Organized Health Care Education/Training Program | DX: N13.30 Unspecified hydronephrosis (principal); N32.89 Other specified disorders of bladder; K31.89 Other diseases of stomach and duodenum; D64.9 Anemia, unspecified | CPT/HCPCS: 99223; 99232; 99233; 99239 ==

== ENCOUNTER → 2023-06-12 23:01 | Outpatient (BNV) | payer MEDICARE, OTHER, SELFPAY | PROVIDERS: Admitting Provider Student in an Organized Health Care Education/Training Program; Emergency Provider Emergency Medicine; PCP Internal Medicine; Visit Provider Internal Medicine | DX: R10.13 Epigastric pain (principal); D64.9 Anemia, unspecified; R93.89 Abnormal findings on diagnostic imaging of other specified body structures; K31.89 Other diseases of stomach and duodenum; K29.80 Duodenitis without bleeding | CPT/HCPCS: 43239; 45381; 45385; 99223; 99232 ==

== ENCOUNTER → 2023-06-12 23:01 | Outpatient (BNV) | payer MEDICARE, SELFPAY | PROVIDERS: Admitting Provider Student in an Organized Health Care Education/Training Program; Emergency Provider Emergency Medicine; PCP Internal Medicine; Visit Provider Surgery | DX: K64.8 Other hemorrhoids (principal) | CPT/HCPCS: 99222 ==

== ENCOUNTER → 2023-06-12 23:01 | Outpatient (BNV) | payer MEDICARE, OTHER, SELFPAY | PROVIDERS: Admitting Provider Student in an Organized Health Care Education/Training Program; Emergency Provider Emergency Medicine; PCP Internal Medicine; Visit Provider Urology | DX: N13.4 Hydroureter (principal) | CPT/HCPCS: 52204; 74420; 99223 ==

== ENCOUNTER 2023-06-22 10:15 | Outpatient (REF) | payer MEDICARE, OTHER, SELFPAY ==
[2023-06-22 13:12] LABS: MANUAL DIFF FLAG NO
[2023-06-22 13:39] LABS: Basophils Percent Auto 0.5 % (0-2); Eosinophils Absolute Auto 0.1 X10*3/uL (0.0-0.4); Eosinophils Percent Auto 0.7 % (0-4); Hematocrit 27.7 % (42.0-52.0); Hemoglobin 8.8 g/dl (14.0-18.0); Imm Gran Abs Auto 0.03 X10*3/uL (0.00-0.03); Imm Gran Pct Auto 0.4 % (0.0-0.4); Lymphocytes Absolute Auto 1.2 X10*3/uL (1.2-4.9); Lymphocytes Percent Auto 16.5 % (20-40); Mean Corpuscular HGB Conc 31.8 g/dl (31.0-36.0); Mean Corpuscular Hemoglobin 29.1 pg (27.0-33.0); Mean Corpuscular Volume 91.7 fL (80.0-98.0); Mean Platelet Volume 10.6 fL (9.4-12.4); Monocytes Absolute Auto 0.7 X10*3/uL (0.1-1.2); Monocytes Percent Auto 9.6 % (2-11); Neutrophils Absolute Auto 5.5 x10*3/uL (2.0-8.3); Neutrophils Percent Auto 72.3 % (45-73); Platelet Count 277 X10*3/uL (160-400); Red Blood Count 3.02 X10*6/uL (4.60-5.80); Red Cell Distribution Width 13.4 % (11.0-16.0); White Blood Count 7.5 X10*3/uL (4.8-10.8)
[2023-06-22 13:50] LABS: Anion Gap 14 (12-20); Blood Urea Nitrogen 20 mg/dL (9-16); Calcium 9.6 mg/dL (8.4-10.2); Carbon Dioxide 25 mmol/L (22-29); Chloride 104 mmol/L (96-108); Estimated Glomerular Filt Rate > 60; Glucose Random 96 mg/dL (60-115); Iron 19 mcg/dL (45-160); Percent Iron Saturation 7 % (15-50); Potassium 4.5 mmol/L (3.3-5.1); Sodium 138 mmol/L (135-145); Total Iron Binding Capacity 258 mcg/dL (228-428); Unsaturated Iron Binding 239 ug/dL
== END 2023-06-22 10:16 | disposition home or self-care (01) ==
LOC: HO.HMGCLDS 10:15
PROVIDERS: PCP Internal Medicine; Visit Provider Internal Medicine
DX: K92.2 Gastrointestinal hemorrhage, unspecified (principal); R26.81 Unsteadiness on feet
CPT/HCPCS: 36415; 80048; 83540; 85025

== ENCOUNTER → 2023-06-30 11:25 | Outpatient (BNV) | payer MEDICARE, OTHER, SELFPAY | PROVIDERS: PCP Internal Medicine; Visit Provider Internal Medicine | DX: C16.1 Malignant neoplasm of fundus of stomach (principal); D64.9 Anemia, unspecified | CPT/HCPCS: 99205; 99213; 99215 ==

== ENCOUNTER 2023-07-03 14:29 | Outpatient (AMB) | payer MEDICARE, OTHER, SELFPAY ==
--- NOTE | 2023-07-03 14:46 | MHC.OFFVIS ---
Intake Vital Signs 07/03/23 14:48 Weight 153 lb 14.122 oz BP 136/73 Blood Pressure Location Lt brachial Position Sitting Respiration 83 H Intake Visit Reasons: Follow Up ED Intake Note: Patient here to f/u ER visit 3wks ago. Patient c/o: no change with abd pain. Taking Omeprazole twice a day, tylenol. ABD CT scan: 06-12-23. 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 Briefly, patient was seen in house earlier this month for gradually progressive weight loss and epigastric discomfort. Endoscopy inpatient showed subepithelial gastric mass just below the GE junction extending along the greater curvature up to 50 cm with ulceration. Patient was also found to have large colonic polyps including a 30 mm polyp in the sigmoid colon. Path: A. Stomach, mass, biopsy: Poorly differentiated adenocarcinoma with signet ring features, involving gastric mucosa. B. Stomach, antrum lesser curvature, biopsy: Antral-type mucosa with mild chronic inactive inflammation and regenerative changes; no Helicobacter organisms seen. C. Stomach, antrum greater curvature, biopsy: Antral-type mucosa with mild chronic inactive inflammation and regenerative changes; no Helicobacter organisms seen. D. Stomach, incisura, biopsy: Antral-type mucosa with mild chronic inactive inflammation and regenerative changes; no Helicobacter organisms seen. E. Stomach, body lesser curvature, biopsy: Oxyntic mucosa with mild chronic inactive inflammation and regenerative changes; no Helicobacter organisms seen. F. Stomach, body greater curvature, biopsy: Poorly differentiated adenocarcinoma with signet ring features, involving gastric mucosa. G. Colon, transverse, polypectomies: Tubular adenomata; negative for high-grade dysplasia or carcinoma. H. Colon, sigmoid, polypectomy: Villous adenoma; negative for high-grade dysplasia or carcinoma. Patient since then has been seen by his oncologist. He is awaiting CT chest and PET scan for further staging and decision regarding further management. Currently, main concern is persistent lack of appetite and decreased p.o. intake. He continues to have gradual weight loss. is trying to get him to take protein shakes at home. [facility] Medical History Hemorrhoids with complication Hemorrhoids Hiatal hernia Erectile dysfunction Surgical History History of rectal surgery Hx of esophagogastroduodenoscopy Family History Father Diabetes mellitus, Onset Age: 70 Mother No problems noted. Brother Acute myocardial infarction, Onset Age: 52 Social History Household Members: Spouse Housing: House Do you presently have visiting nurse or other home services: No Patient Tobacco Use Status: Current someday Tobacco user Tobacco use type: Cigarette e-Cigarette/Vaping Use: Never Used Second Hand Smoke Exposure: No service: No Current occupational status: employed Cognitive needs: No Hearing needs: No Vision needs: Yes Review of Systems Const All systems reviewed & are unremarkable except as noted in HPI and below Physical Exam Vital Signs: Last Vital Signs Resp 83 H 07/03/23 14:48 BP 136/73 07/03/23 14:48 Elderly gentleman Nonicteric No overt respiratory distress Abdomen soft, nondistended No lower extremity edema Results AMB Urinalysis, Automated UA Leukoctes 0 Jaswant/uL Last Edit by RUSTY Forbes on 07/03/23 15:48 UA Nitrite Negative Last Edit by RUSTY Forbes on 07/03/23 15:48 UA Urobilinogen 0.2 mg/dL Last Edit by RUSTY Forbes on 07/03/23 15:48 UA Protein 30 mg/dL Last Edit by RUSTY Forbes on 07/03/23 15:48 1+ Cat Thibodeaux 07/03/23 15:48 UA pH 6.5 Last Edit by RUSTY Forbes on 07/03/23 15:48 UA Blood 0 Eladio/uL Last Edit by RUSTY Forbes on 07/03/23 15:48 UA Specific Treichlers 1.015 Last Edit by RUSTY Forbes on 07/03/23 15:48 UA Ketone Positive Last Edit by RUSTY Forbes on 07/03/23 15:48 5 mg/dL Cat Thibodeaux 07/03/23 15:48 UA Bilirubin 0 mg/dL Last Edit by RUSTY Forbes on 07/03/23 15:48 UA Glucose 0 mg/dL Last Edit by RUSTY Forbes on 07/03/23 15:48 Assessment & Plan Assessment & Plan (1) Unintentional weight loss: Code(s): R63.4 - Abnormal weight loss (2) Primary signet-ring cell carcinoma of stomach: Code(s): C16.9 - Malignant neoplasm of stomach, unspecified (3) Acute GI bleeding: Code(s): K92.2 - Gastrointestinal hemorrhage, unspecified (4) Abdominal pain: Code(s): R10.9 - Unspecified abdominal pain Qualifiers: Abdominal location: epigastric Qualified Code(s): R10.13 - Epigastric pain (5) Anemia: Code(s): D64.9 - Anemia, unspecified Qualifiers: Anemia type: unspecified type Qualified Code(s): D64.9 - Anemia, unspecified (6) Personal history of colonic polyps: Code(s): Z86.010 - Personal history of colonic polyps Plan New diagnosis of gastric signet cell ca leading to abd pain, unintentional weight loss, anemia and GI bleeding. No mets in abdomen or pelvis based on the CT. CT chest pending. Polyps will need a surveillance colo in 3 years due to finding of large TVA. Plan: - CT chest with contrast booked for Thursday - PET scan as per onc - Further management will be contingent on results of above and as per Onc - Severe ERASMO due to bleeding tumor - s/p 2u PRBC on 06/29. Unfortunately tumor bleeding is not endoscopically treatable but can consider hemospray as temporizing measure if PRBC requirements increase significantly. - Protein shakes for nutrition supplementation - Repeat colo in 3 years pending overall clinical course Follow up 6 months Medications: New food supplemt, lactose-reduced (Ensure Active High Protein oral liquid) 1 ea PO BID 30 days 24,840 mL 1RF C16.9 - Malignant neoplasm of stomach, unspecified, R10.9 - Unspecified abdominal pain, R63.4 - Abnormal weight loss Coding Level of Care Code Est Pt Level 5 (41742) Diagnoses Unintentional weight loss R63.4 Primary signet-ring cell carcinoma of stomach C16.9 Acute GI bleeding K92.2 Abdominal pain R10.13 Abdominal location: epigastric Anemia D64.9 Anemia type: unspecified type Personal history of colonic polyps Z86.010
[2023-07-03 14:48] VITALS: BP 136/73; RESP 83
== END 2023-07-03 15:14 | disposition home or self-care (01) ==
PROVIDERS: PCP Internal Medicine; Visit Provider Internal Medicine
DX: C16.9 Malignant neoplasm of stomach, unspecified (principal); R63.4 Abnormal weight loss; K92.2 Gastrointestinal hemorrhage, unspecified; D64.9 Anemia, unspecified; D12.5 Benign neoplasm of sigmoid colon
CPT/HCPCS: 99215

== ENCOUNTER 2023-07-03 14:29 | Outpatient (REF) | payer MEDICARE, MEDICAID, OTHER, SELFPAY ==
[2023-07-03 18:52] LABS: Urine Cytology See Pathology rpt
== END 2023-07-03 14:30 | disposition home or self-care (01) ==
LOC: HO.LAB 14:29
PROVIDERS: Urology; PCP Internal Medicine; Visit Provider Internal Medicine
DX: N32.89 Other specified disorders of bladder (principal); N13.30 Unspecified hydronephrosis; R10.13 Epigastric pain; Z96.0 Presence of urogenital implants; R63.4 Abnormal weight loss; C16.9 Malignant neoplasm of stomach, unspecified; K92.2 Gastrointestinal hemorrhage, unspecified; D64.9 Anemia, unspecified; Z86.010 Personal history of colon polyps
CPT/HCPCS: 81003; 88112; 99212

== ENCOUNTER 2023-07-03 15:21 | Outpatient (AMB) | payer MEDICARE, OTHER, SELFPAY ==
--- NOTE | 2023-07-03 15:53 | A.OFFVIS_ITS ---
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 He was seen by Dr. Cueva while inpatient and is status post right ureteral stent. I have reviewed his chart, he had a CT scan of the abdomen and pelvis that had abnormalities involving the urinary tract small nonobstructive stones in the right kidney, right hydronephrosis hydroureter to the bladder level with questionable small tissue in the distal right ureter. During inpatient workup was done by GI, he was diagnosed with gastric adenocarcinoma and is being followed by Oncology, and states he will be getting chemotherapy. He has history of nicotine use. 06/12/23--CTAP: moderate to severe right r enal hydronephrosis and hydroureter, no obstructing stone however there is soft tissue thickening possible soft tissue mass of the right ureterovesicular junction 1.8 x 1.1 cm. This is concerning for possible urothelial neoplasm TCC. nonobstructing stones in the right kidney the largest 3 mm image 27 series of 3. Overall low attenuation below enhancement of the right kidney suggesting high degree obstruction, there is also perinephric fat stranding. Left kidney there is a simple cyst was near class I 2.6 cm almost certainly benign, no follow-up recommended. URINARY BLADDER: There is soft tissue thickening along the posterior wall of the urinary bladder right of midline at its junction with the right ureter concerning for possible pathologic process, causing obstruction of the right ureter. Plan discussed evaluation of the right ureter. Cystoscopy right ureteroscopy stent exchange versus stent removal. [facility] Medical History Hemorrhoids with complication Hemorrhoids Hiatal hernia Erectile dysfunction Surgical History History of rectal surgery Hx of esophagogastroduodenoscopy Family History Father Diabetes mellitus, Onset Age: 70 Mother No problems noted. Brother Acute myocardial infarction, Onset Age: 52 Social History Household Members: Spouse Housing: House Do you presently have visiting nurse or other home services: No Patient Tobacco Use Status: Current someday Tobacco user Tobacco use type: Cigarette e-Cigarette/Vaping Use: Never Used Second Hand Smoke Exposure: No service: No Current occupational status: employed Cognitive needs: No Hearing needs: No Vision needs: Yes Review of Systems Const All systems reviewed & are unremarkable except as noted in HPI and below Reports no additional complaints Eyes Reports no additional complaints ENT Reports no additional complaints Card Reports no additional complaints Resp Reports no additional complaints GI Reports no additional complaints Reports as per HPI Musc Reports no additional complaints Skin/Breast Reports system reviewed and no additional complaints, except as documented Neuro Reports no additional complaints Psych Reports no additional complaints Endo Reports no additional complaints Mac/Lymph Reports no additional complaints Aller/Immun Reports no additional complaints Results AMB Urinalysis, Automated UA Leukoctes 0 Jaswant/uL Last Edit by RUSTY Forbes on 07/03/23 15:48 UA Nitrite Negative Last Edit by RUSTY Forbes on 07/03/23 15:48 UA Urobilinogen 0.2 mg/dL Last Edit by RUSTY Forbes on 07/03/23 15:4 8 UA Protein 30 mg/dL Last Edit by RUSTY Forbes on 07/03/23 15:48 1+ Cat Thibodeaux 07/03/23 15:48 UA pH 6.5 Last Edit by RUSTY Forbes on 07/03/23 15:48 UA Blood 0 Eladio/uL Last Edit by RUSTY Forbes on 07/03/23 15:48 UA Specific [place] 1.015 Last Edit by RUSTY Forbes on 07/03/23 15: 48 UA Ketone Positive Last Edit by RUSTY Forbes on 07/03/23 15:48 5 mg/dL aCt Thibodeaux 07/03/23 15:48 UA Bilirubin 0 mg/dL Last Edit by RUSTY Forbes on 07/03/23 15:48 UA Glucose 0 mg/dL Last Edit by RUSTY Forbes on 07/03/23 15:48 Results Reviewed Results Reviewed: Laboratory Last Values Urine pH (Auto) 6.5 07/03/23 15:45 Specific [place] (Auto) 1.015 07/03/23 15:45 Urine Protein (Auto) 30 mg/dL 07/03/23 15:45 Glucose (UA)(Auto) 0 mg/dL 07/03/23 15:45 Urine Ketones (Auto) Positive 07/03/23 15:45 Urine Blood (Auto) 0 Eladio/uL 07/03/23 15:45 Urine Nitrite (Auto) Negative 07/03/23 15:45 Urine Bilirubin (Auto) 0 mg/dL 07/03/23 15:45 Urine Urobilinogen (Auto) 0.2 mg/dL 07/03/23 15:45 Leukocyte Esterase (Auto) 0 Jaswant/uL 07/03/23 15:45 Date of Service: 06/12/23 EXAMINATION: CT abdomen pelvis w IV con CLINICAL INFORMATION: Reason for Exam upper abd pain COMPARISON: No prior CT available for comparison. TECHNIQUE: Multidetector volumetric imaging was performed from the superior aspect of the liver through the pubic symphysis 85 mL Omnipaque 350 injected Sagittal and coronal reformatted images were obtained on the technologist's workstation. This CT examination was performed using dose optimization techniques as appropriate, variously including the following: *Automated exposure control *Adjustment of mA and/or kV according to patient size (this includes techniques or standardized protocols for targeted exams where dose is matched to indication/reason for exam; i.e. extremities or head) *Use of iterative reconstruction technique DLP: 452 mGy-cm FINDINGS: LOWER THORAX: Included lung bases are clear. There is heterogeneous partially calcified soft tissue mass at the gastroesophageal junction with circumferential wall thickening of the distal esophagus concerning for possible pathologic process, roughly measures 4.2 x 2.9 cm refer image 9 series of 3, this may be further characterize with follow-up endoscopy and/or assessment with barium esophagogram. HEPATOBILIARY: No focal hepatic lesions. No biliary ductal dilatation. GALLBLADDER: Gallbladder unremarkable. SPLEEN: Spleen is normal in size. PANCREAS: No focal mass or ductal dilatation. STOMACH AND GASTROINTESTINAL TRACT: There is diffuse circumferential wall thickening of the gastric wall which in part could be due to its nondistention, cannot rule out diffuse infiltrating disease process such as gastric lymphoma or others. This also can be assessed with endoscopy. There is no bowel distention or thickening. No CT evidence of appendicitis. ADRENALS: No adrenal nodules. KIDNEYS/URETERS: There is moderate to severe right renal hydronephrosis and hydroureter, no stone however there is soft tissue thickening possible soft tissue mass of the right ureterovesicular junction 1.8 x 1.1 cm refer image 66 series of 3. This is concerning for possible urothelial neoplasm. There are nonobstructing stones in the right kidney the largest 3 mm image 27 series of 3. Overall low attenuation below enhancement of the right kidney suggesting high degree obstruction, there is also perinephric fat stranding. Left kidney there is a simple cyst was near class I 2.6 cm almost certainly benign, no follow-up recommended. URINARY BLADDER: There is soft tissue thickening along the posterior wall of the urinary bladder right of midline at its junction with the right ureter concerning for possible pathologic process, causing obstruction of the right ureter. The concern here is for TCC. Refer image 65 series 8. PELVIC VISCERA: No lymphadenopathy. Prostate 3.6 x 7.8 cm. There are a few scattered lymph nodes, no lymphadenopathy. PERITONEUM: There is a trace amount of the fat stranding retroperitoneum periaortic and pararenal especially around the right side, no free air. LYMPH NODES: No lymphadenopathy. VASCULAR:There is infrarenal fusiform aortic aneurysm 4.4 x 4.2 cm axially and about 6 6 cm craniocaudally. The aorta is heavily calcified. BONES, ABDOMINAL WALL AND SOFT TISSUES: Age-appropriate changes of the spine and skeletal system, no destructive osteolytic or osteosclerotic bone lesion found IMPRESSION: 1. There is moderate to severe right renal hydronephrosis and hydroureter, no obstructing stone however there is soft tissue thickening possible soft tissue mass of the right ureterovesicular junction 1.8 x 1.1 cm. This is concerning for possible urothelial neoplasm TCC, urology consultation recommended. Consider cystoscopy. Damian images 2. There is diffuse circumferential wall thickening of the distal esophagus and gastric wall which in part could be due to its nondistention, cannot rule out diffuse infiltrating disease process such as gastric lymphoma or others. Damian images 3. Concern for a soft tissue mass of the distal esophagus/gastroesophageal junction as described above. This mass is partially calcified as described above. Attention to follow-up endoscopy/tissue biopsy is warranted. Damian images 4. Perinephric fat stranding around the right kidney and low attenuation of its cortex suggesting high degree of obstruction. There are additional Nonobstructing stones in the right. Damian images 5. Infrarenal fusiform aortic aneurysm 4.4 cm axially and about 6 cm craniocaudally. Recommend followup every 12 months and vascular specialist consultation. Reference: J Am Chris Radiol 2013; 10 (10): 789-794. Assessment & Plan Assessment & Plan (1) Hydronephrosis: Code(s): N13.30 - Unspecified hydronephrosis (2) Abdominal pain: Code(s): R10.9 - Unspecified abdominal pain Qualifiers: Abdominal location: epigastric Qualified Code(s): R10.13 - Epigastric pain (3) Ureteral stent present: Code(s): Z96.0 - Presence of urogenital implants Plan Discussed right ureteroscopy stent exchange versus stent removal Urine for cytology Orders: Orders Urine Cytology Today N32.89 - Other specified disorders of bladder AMB Urinalysis Automated Today Z13.9 - Encounter for screening, unspecified Patient Instructions: The patient had an opportunity to ask questions regarding treatment plan. All questions were answered. Imaging, Laboratory studies and physical exam results were discussed and reviewed in detail. No major barriers to understanding were identified. The patient expressed understanding and agreement with the above treatment plan. The patient is aware they should contact our office by phone for worsening of their current condition or the appearance of new symptoms. Compliance is encouraged with any medications and followup testing that is ordered. It is a privilege to be allowed the opportunity to participate in the urologic care of your patient. If you have any questions or concerns regarding treatment for the above conditions please do not hesitate to contact me. The office telephone contact is [phone]. This note is constructed in part using voice recognition software. While every effort has been made to ensure accuracy boat buffer plastic errors may have been included. Yours sincerely, Gilson Marcum MD Coding Level of Care Code Est Pt Level 4 (03441) Diagnoses Hydronephrosis N13.30 Abdominal pain R10.13 Abdominal location: epigastric Ureteral stent present Z96.0
== END 2023-07-03 16:23 | disposition home or self-care (01) ==
PROVIDERS: PCP Internal Medicine; Visit Provider Urology
DX: N13.30 Unspecified hydronephrosis (principal); R10.13 Epigastric pain; Z96.0 Presence of urogenital implants
CPT/HCPCS: 99214

== ENCOUNTER 2023-07-06 14:27 | Outpatient (REF) | payer MEDICARE, MEDICAID, OTHER, SELFPAY ==
--- NOTE | ~2023-07-06 | CT_ITS ---
EXAMINATION: CT CHEST WITH CONTRAST CLINICAL INFORMATION: Malignant neoplasm of stomach COMPARISON: 06/12/[address] TECHNIQUE: Multidetector volumetric CT imaging of the chest was obtained after the administration of 65 mL of Omnipaque 350 intravenous contrast without immediate adverse reactions. Axial MIP volume rendering provided. Sagittal and coronal reformatted images were obtained. This CT examination was performed using dose optimization techniques as appropriate, variously including the following: *Automated exposure control *Adjustment of mA and/or kV according to patient size (this includes techniques or standardized protocols for targeted exams where dose is matched to indication/reason for exam; i.e. extremities or head) *Use of iterative reconstruction technique DLP: 121 mGy-cm FINDINGS: ROLL CLAMP OPERATOR: Prominent superior mediastinum and GE junction. Left costophrenic angle blunting. Nonspecific bowel pattern. Right ureteral stent. LUNGS: Trachea and bronchi are patent. Mild centrilobular emphysema. Mild bronchiectasis and bronchial wall thickening. Scattered atelectasis. Two 2 medial BRENNEN nodules, 6:46 and 47. 2-3 mm BRENNEN nodule, 6:108. 3 mm medial posterior RUL nodule, 6:55 MEDIASTINUM: Unremarkable thyroid. Prominent left supraclavicular lymph nodes, 2 largest measuring 9 and 7 mm in short axis. Multiple prominent superior mediastinal lymph nodes, largest measuring 1.2 x 2.5 cm located superior and anterior to the aortic arch. Nonenlarged heart. No pericardial effusion. Degree of coronary calcifications: Moderately severe. Nonaneurysmal aorta with atherosclerotic calcifications. Nonenlarged pulmonary arteries. PLEURA: Small left pleural effusion. No pleural mass or thickening. AXILLA: No lymphadenopathy. UPPER ABDOMEN: Diffuse mild hypoattenuation to liver parenchyma. Distal esophageal thickening/fluid. Partially calcified/ossified right lateral thickened distal esophagus/GE junction. Thick walled proximal stomach suspicious for infiltrating process.. Multiple perigastric and retroperitoneal lymph nodes, largest in the left para-aortic region measures 1.9 cm. Left upper quadrant splenule versus lymph node, 5:216. Prominent left upper quadrant collateral vessels. Partial visualization right ureteral stent with perinephric stranding. 2.4 cm left renal cyst. 4.4 cm infrarenal aortic aneurysm seen on 06/12/2023 is not included on today's examination. OSSEOUS STRUCTURES: No suspicious osseous lesions. CT/CT chest w IV con IMPRESSION: Redemonstration abnormally thickened, partially calcified/ossified distal esophagus/GE junction and proximal gastric guerra suspicious for infiltrating process. Patient with known gastric cancer. Enlarged left supraclavicular, upper mediastinal and upper abdominal lymph nodes suspicious for pathologic lymphadenopathy. Small left pleural effusion. Prominent upper abdominal collateral vessels. Small pulmonary nodules, none larger than 3 mm.
[2023-07-06] MEDS: iohexoL 350 MG/ML 100 ML INFUS..BTL 65 ML IV (14:50)
== END 2023-07-06 14:28 | disposition home or self-care (01) ==
LOC: HO.CT 14:27
PROVIDERS: PCP Internal Medicine; Visit Provider Internal Medicine
DX: C16.9 Malignant neoplasm of stomach, unspecified (principal)
CPT/HCPCS: 71260; Q9967

== ENCOUNTER 2023-07-07 09:15 | Outpatient (REF) | payer MEDICARE, OTHER, SELFPAY ==
--- NOTE | ~2023-07-07 | PE_ITS ---
EXAMINATION: Fluorine-18 FDG PET/CT Scan CLINICAL INDICATION: Initial treatment management. Carcinoma of stomach. PROCEDURE: 61 minutes following the intravenous administration of 15.3 mCi of fluorine 18 FDG, images from the base of the skull to the mid thighs were obtained using a combined PET/CT scanner with CT scan based attenuation correction. No intravenous contrast was administered. Transverse, coronal, sagittal, and volume reconstruction projections were obtained. The patient's blood glucose as determined by a finger stick, was 107 mg/dl immediately prior to injection. Total CT exam dose-length product 561.44 mGy-cm * These CT images were obtained using dose optimization techniques as appropriate, variously including the following: Automated exposure control * Adjustment of mA and/or kV according to patient size (this includes techniques or standardized protocols for targeted exams where dose is matched to indication/reason for exam; i.e. extremities or head) * Use of iterative reconstruction technique COMPARISON: No previous PET/CT scan is available for comparison. CT scan of the chest dated 07/06/2023 is available for comparison. FINDINGS: NECK AND VISUALIZED HEAD: Multiple low left FDG avid cervical lymph nodes are present. The most superior of these right left cervical level 6 and chest lateral to this a left cervical level 5A lymph node, both just superior to the cricoid, the more intensely level 6 node showing SUVmax 3.1, slice 46/267 and measuring 1.3 x 0.9 cm in largest transverse dimensions. Inferior to these are at least 4 FDG avid cervical level 5B (supraclavicular) lymph nodes, the most intense showing SUVmax 4.1, slice 53/267 measuring 1.1 x 0.[address] images. No additional foci of abnormal FDG activity are present in the neck or visualized head. All the other activity in this region appears physiological. THORAX: Multiple FDG avid mediastinal lymph nodes are present. The most superior of these are left prevascular lymph nodes extending inferiorly from the previously described cervical level 5B lymph node chain, the most intense showing SUVmax 4.2, slice 61/267 an measuring 1.0 x 0.[address] images. A few additional high retrosternal and periaortic FDG avid lymph nodes are present. More inferiorly, the most intense FDG avid lymph node is a periaortic lymph node showing SUVmax 5.5, slice 74/287 abutting the junction of the ascending aorta and the aortic arch measuring 1.9 x 1.0 cm in largest transverse dimensions on the CT images. The latter is the most inferior FDG avid mediastinal lymph node. Two medial 0.4 cm left upper lobe pulmonary nodules are visualized, in slices 79 and 77, unchanged from the 07/06/[address] scan and much too small to be characterized on the FDG PET images. There is an additional posterior medial right upper lobe nodule just barely visualized, 0.4 cm slice 82/349, also unchanged from 07/06/2023. An additional 2 to 3 mm left upper lobe nodule visualized on 07/06/2023 is not apparent on these nondiagnostic CT images. All of these nodules are much too small to be characterized on the FDG PET images. No additional suspicious pulmonary nodules are visualized. A small left pleural effusion is present and is weakly FDG avid, SUVmax 2.1, slice 101/267. There is no right-sided pleural fluid, pneumothorax, or pericardial fluid. ABDOMEN AND PELVIS: There is diffuse FDG activity throughout most of the gastric wall which appears thickened and there is a region of more prominently increased FDG activity in the greater curvature that shows SUVmax 8.3, slice 127/267. Abnormal FDG activity extends superiorly to the gastroesophageal junction but is less intense than the focus in the greater curvature. Dense calcifications are present at the gastroesophageal junction. Multiple FDG avid lymph nodes are present in the gastrohepatic ligament and adjacent to the medial aspect of the spleen the most intense a gastrohepatic ligament focus abutting the medial aspect of the stomach showing SUVmax 8.3, slice 121/267. There are additional FDG avid mesenteric and retroperitoneal lymph nodes, the most intense of these a left para-aortic lymph node adjacent to the origin of the superior mesenteric artery showing SUVmax 5.2, slice 133/267. Several additional FDG avid lymph nodes are present inferior to this bilaterally. The liver, gallbladder, and spleen are unremarkable. A right ureteral stent extends from the right renal pelvis to the urinary bladder. Some residual contrast material is present in the right renal collecting system, probably residual from contrast administered the CT scan of the chest 1 day prior to the current study. The right kidney is otherwise unremarkable. There is a hypodense cyst posteriorly in the upper pole of the left kidney, markedly FDG photopenic and unchanged from 07/06/2023. The kidneys are otherwise unremarkable. The adrenal glands are unremarkable. Other than a few FDG avid peripancreatic lymph nodes, the pancreas appears unremarkable. The prostate gland is enlarged measuring 5.1 cm in largest transverse dimensions. The pelvic organs are otherwise unremarkable. MUSCULOSKELETAL: There is mild FDG activity associated with facet arthropathy on the left at the C4-C5 level. There are no other foci of abnormal FDG activity in the osseous structures. There are degenerative changes in the spine but no suspicious sclerotic or lytic lesions are visualized. VASCULAR: Vascular calcifications including coronary are noted. There is aneurysmal dilatation of the infrarenal abdominal aorta measuring 4.5 cm in largest transverse dimensions. Reference SUVmax Levels: Mediastinal Blood Pool: 1.7, Slice 82/267 Liver: 2.9, Slice 123/267 PET/PET CT fusion skull to thigh IMPRESSION: 1. Abnormal FDG activity diffusely in the gastric guerra described above is consistent with the diagnosis of carcinoma of the stomach. 2. FDG avid left-sided low cervical, supraclavicular, mediastinal, mesenteric, and retroperitoneal lymph nodes most likely represent malignant metastases. 3. A few small subcentimeter pulmonary nodules are present, better visualized on the 07/06/[address] scan, and all much too small to be characterized on the FDG PET images. 4. No additional abnormalities suspicious for other metastatic or malignant lesions are noted. 5. Vascular calcifications including coronary. Aneurysmal dilatation of the infrarenal abdominal aorta measuring 4.5 cm is present.
== END 2023-07-07 09:16 | disposition home or self-care (01) ==
LOC: HO.PET 09:15
PROVIDERS: PCP Internal Medicine; Visit Provider Internal Medicine
DX: Z13.89 Encounter for screening for other disorder (principal)

== ENCOUNTER 2023-07-14 08:02 | Day surgery (SDC) | payer MEDICARE, OTHER, SELFPAY ==
[2023-07-14] VITALS (8 sets, daily range): BP systolic 130–146; BP diastolic 65–71; PULSE 79–107; RESP 11–16; TEMP 36.6; O2SAT 94–98; BMI 24.6
--- NOTE | ~2023-07-14 | FL_ITS ---
EXAMINATION: XR FLUOROSCOPY WITH IMAGES CLINICAL INFORMATION: Cystoscopy, right ureteroscopy, retrograde urography and right ureteral stent placement. COMPARISON: CT abdomen and pelvis dated 06/24/2023; portions of the PET/CT dated 07/07/2023. TECHNIQUE: Fluoroscopy Supervised By: Dr. Marcum. Fluoroscopy Time: 39.6 seconds. Cumulative Dose: 12.11 mGy. Images: 11. FINDINGS: The submitted images show a right ureteric injection catheter, with contrast opacifying the right intrauterine extrarenal collecting structures. A double pigtail right ureteric stent is noted. FL/FL guidance in OR IMPRESSION: Intraoperative fluoroscopic guidance is provided during right urinary system urologic procedure. Please see the patient's Operative Report for full procedural details.
[2023-07-14 08:51] LABS: Hematocrit 28.5 % (42.0-52.0)
[2023-07-14 09:07] LABS: Hemoglobin 9.1 g/dl (14.0-18.0)
[2023-07-14] MEDS: Lactated Ringers 1,000 ML 100 ML IVCONT (09:15)
--- NOTE | 2023-07-14 10:30 | HO.ANESPROP2 ---
Documented by User: Paloma Blair NP 07/13/23 09:50 HPI - Anesthesia Eval Consult details Narrative: 72yo M for Right Cystoscopy Ureteroscopy,possible stent exchange,possible stent removal diagnosed with gastric adenocarcinoma in June 2023 s/p EGD and Kenna 06/2023 with MAC Critically low H&H 07/13/23, 2 units PRBC 07/13/23 PMFSH Active Problems Active Problems: All Active Problems Personal history of colonic polyps (Acute) Ureteral stent present (Acute) Unintentional weight loss (Acute) Primary signet-ring cell carcinoma of stomach (Acute) Hydronephrosis (Acute) Bladder mass (Acute) Mass of gastroesophageal junction (Acute) Acute GI bleeding (Acute) Anemia (Acute) Hemorrhoids with complication (Acute) Hemorrhoids (Acute) Erectile dysfunction (Acute) Past Medical History Medical History Stomach cancer Hemorrhoids with complication Hemorrhoids Positive colorectal cancer screening using Cologuard test Hiatal hernia Erectile dysfunction Family History Family History Father Diabetes mellitus, Onset Age: 70 Mother No problems noted. Brother Acute myocardial infarction, Onset Age: 52 Family history of problems with anesthesia: No Surgical History Surgical History H/O colonoscopy Hx of cystoscopy History of rectal surgery Hx of esophagogastroduodenoscopy History of Problems with Anesthesia: No Social History Social History Household Members: Spouse Housing: House Do you presently have visiting nurse or other home services: No Patient Tobacco Use Status: Former Tobacco user Quit Date: 06/2023 Tobacco use type: Cigarette e-Cigarette/Vaping Use: Never Used Second Hand Smoke Exposure: No Use of substances other than those prescribed or required for medical reasons: No Are you DNR?: No Advance Directives: No Advance Directives Information Provided: Yes service: No Current occupational status: employed Cognitive needs: No Hearing needs: No Vision needs: Yes Meds Allergies Allergy/AdvReac Type Severity Reaction Status Date / Time No Known Allergies Allergy Verified 07/14/23 09:15 Exam Pertinent Lab Results Pertinent Lab Results: Laboratory Tests 07/13/23 08:53 Sodium 136 Potassium 4.8 Chloride 102 Carbon Dioxide 27 BUN 23 H Creatinine 1.19 Assessment and Plan Assessment Anesthesia Assessment: Chart Reviewed Final Anesthetic Review Family History of Problems with Anesthesia: No History of Problems with Anesthesia: No Documented by User: Jemma Johnson DO 07/14/23 10:36 [facility] Past Medical History Medical History Stomach cancer Hemorrhoids with complication Hemorrhoids Positive colorectal cancer screening using Cologuard test Hiatal hernia Erectile dysfunction Family History Family History Father Diabetes mellitus, Onset Age: 70 Mother No problems noted. Brother Acute myocardial infarction, Onset Age: 52 Family history of problems with anesthesia: No Surgical History Surgical History H/O colonoscopy Hx of cystoscopy History of rectal surgery Hx of esophagogastroduodenoscopy History of Problems with Anesthesia: No Social History Social History Household Members: Spouse Housing: House Do you presently have visiting nurse or other home services: No Patient Tobacco Use Status: Former Tobacco user Quit Date: 06/2023 Tobacco use type: Cigarette e-Cigarette/Vaping Use: Never Used Second Hand Smoke Exposure: No Use of substances other than those prescribed or required for medical reasons: No Are you DNR?: No Advance Directives: No Advance Directives Information Provided: Yes service: No Current occupational status: employed Cognitive needs: No Hearing needs: No Vision needs: Yes Meds Allergies Allergy/AdvReac Type Severity Reaction Status Date / Time No Known Allergies Allergy Verified 07/14/23 09:15 Exam Exam Date and Time: July 14, 2023 1030 Height,Weight and Vital Signs: Height 5 ft 7 in Weight 71.214 kg Vital Signs Temperature 97.8 F 07/14/23 09:07 Pulse Rate 79 07/14/23 09:07 Respiratory Rate 15 07/14/23 09:07 Blood Pressure 143/71 H 07/14/23 09:07 Pulse Oximetry 97 07/14/23 09:07 Oxygen Delivery Method Room Air 07/14/23 09:07 Temperature 97.8 F 07/14/23 09:07 Pulse Rate 79 07/14/23 09:07 Respiratory Rate 15 07/14/23 09:07 Blood Pressure 143/71 H 07/14/23 09:07 Pulse Oximetry 97 07/14/23 09:07 Oxygen Delivery Method Room Air 07/14/23 09:07 Airway Mallampati Class: I TM Dist: >3cm Neck ROM: Full Loose/Missing/Broken Teeth: No (patient denies any loose or broken teeth) Heart: S1S2 Lungs: CTAB Assessment and Plan Assessment Anesthesia Assessment: Anesthesia Plan Discussed and Chart Reviewed Final Anesthetic Review Family History of Problems with Anesthesia: No History of Problems with Anesthesia: No NPO: Yes ASA Class: III Final Preanesthetic Review: No Changes in Pt Med Stat, Meds/Allgs Chart Reviewed, Consent Obtained/Reviewed and Anes Risks/Benef Reviewed Patient Risk: Intermediate Procedure Risk: Low Anesthetic Plan Anesthetic Plan: GA and Agree w/ Assess. and Plan Disposition: Standard PACU
--- NOTE | 2023-07-14 10:50 | MHC.SHP ---
Pre-Procedural Eval Section A - 24 Hr Update-Section A only Date of Service: 07/14/23 The patient is an INPATIENT: No The patient has been examined within 24 hours of the surgical procedure. The History & Physical has been completed within 30 days and I have reviewed it.: Yes Section B - Complete if H&P > 30 days Chief Complaint: Unspecified hydronephrosis Allergies: Allergies Allergy/AdvReac Type Severity Reaction Status Date / Time No Known Allergies Allergy Verified 07/14/23 09:15 Plan Diagnosis/Plan: Unchanged I have reviewed the history and physical and performed a pertinent physical examination on my patient. No changes have occurred unless specified. Anemia, pt received 2 units of PRBC's, Hb today 9.1. Plan: Cystoscopy, right ureteroscopy, possible biopsy, stent exchange versus stent removal. Time Spent With Patient Time: Total time managing care of this patient today ____ minutes.
--- NOTE | 2023-07-14 12:45 | W.PM.OPN ---
Operative Note Operative Note Date of Service: 07/14/23 Narrative: PreOperative Diagnosis:?? Right hydronephrosis, right ureteral soft tissue filling defect status post right ureteral stent Post Operative Diagnosis:?? Right hydronephrosis, right ureteral soft tissue filling defect status post right ureteral stent Procedure: Cystoscopy, right retrograde Right ureteroscopy, brush biopsy distal ureter, Right ureter stent exchange, size 7 [place] by 26 cm Bladder biopsy, right trigone Surgeon:?Dr Gilson Marcum Anesthesia:? General Indications for procedure: Rd is a 72-year-old male who is newly diagnosed with gastric adenocarcinoma, metastatic. On initial presentation which included abdominal pain and weight loss CT imaging noted moderate to severe right hydronephrosis secondary to soft tissue filling defect. Ureteral stent was placed. Procedure: After informed consent was verified the patient was brought to the operating placed on the OR table in supine position.? General Anesthesia was administered per protocol.? The patient was placed in lithotomy position, prepped and draped in the usual sterile fashion.? Safety pause time-out and side of surgery confirmed.? Antibiotics confirmed. A 22 [place] cystoscope was inserted transurethrally, the bulbous urethra was within normal limits. The prostatic urethra was nonobstructive. The bladder was visualized.? The right ureteral stent was curled in the bladder. There were erythematous changes noted along the right hemitrigone. The? distal end of the ureteral stent was grasped with the flexible grasping forceps. The stent was pulled retrograde through the urethra. A guidewire was passed through the stent. The cystoscope was removed, leaving the guidewire in place. The open-ended ureteral catheter was passed along the guidewire to the mid ureter and retrograde was done. There was dilatation of the proximal ureter and renal pelvis contrast went retrograde into the distal ureter and there was a filling defect in the area of the distal ureter consistent with findings on CT scan. The guidewire was replaced through the ureteral catheter into the right renal pelvis and attached to the draping as a safety. The semi rigid ureteroscope was passed transurethrally to the distal ureter a 2nd guidewire was passed through the ureter into the renal pelvis, however the ureteroscope was only able to be passed to the level of the mass and visualization of the entire mass was limited; there were inflammatory thickening of the tissue. The semi rigid ureteroscope was removed and the disposable flexible ureteroscope was passed over the guidewire this also was not able to pass through the thickened abnormal tissue in the distal ureter. Attempts to place a brush biopsy through the ureteroscope was not successful due to the lumen sixe of the ureteroscope both on the flexible and the semi rigid. The cystoscope was then placed into the bladder and the brush biopsy was placed through the cystoscope and attempts were made to pass this into the right distal ureter to obtain tissue and this was sent for cytology. Urine from the ureter was also sent for cytology. Bladder biopsies were then done in the area of the right deborah trigone at the right ureteral orifice several cold cup biopsies were done, the Bugbee electrode was used to obtain hemostasis. The safety guidewire had remained in place and the stent was then passed over the guidewire size 7 [place] by 26 cm under a combination of fluoroscopy and direct visualization. The bladder was emptied.? The rigid cystoscope was removed. ? The patient tolerated the procedure well and was brought to the recovery room in stable condition. Complications: None Drains: Ureteral stent as dictated above
[2023-07-14] MEDS: Phenazopyridine HCL 200 MG TABLET PO (13:19)
== END 2023-07-14 14:16 | disposition home or self-care (01) ==
PROVIDERS: Nurse Practitioner; PCP Internal Medicine; Visit Provider Urology
PROC: 0TJ98ZZ Inspection of Ureter, Via Natural or Artificial Opening Endoscopic (ICD-10-PCS; CPT 52351; principal; 2023-07-14 10:10)
DX: T83.89XA Other specified complication of genitourinary prosthetic devices, implants and grafts, initial encounter (principal); N13.30 Unspecified hydronephrosis; R93.41 Abnormal radiologic findings on diagnostic imaging of renal pelvis, ureter, or bladder; C79.11 Secondary malignant neoplasm of bladder; C16.9 Malignant neoplasm of stomach, unspecified; Y73.2 Prosthetic and other implants, materials and accessory gastroenterology and urology devices associated with adverse incidents
CPT/HCPCS: 52354; 52332; 52204; 36415; 85014; 85018; 88112; 88305; 88341; 88342; C1769; C2617; J0131; J0690; J1100; J1170; J2405; J2704; J3010; Q9967

== ENCOUNTER → 2023-07-14 08:02 | Outpatient (BNV) | payer MEDICARE, OTHER, SELFPAY | PROVIDERS: PCP Internal Medicine; Visit Provider Urology | DX: N13.30 Unspecified hydronephrosis (principal) | CPT/HCPCS: 52332; 74420 ==

== ENCOUNTER 2023-07-15 09:17 | Outpatient (AMB) | payer MEDICARE, OTHER, SELFPAY ==
--- NOTE | 2023-07-15 09:25 | MHC.PC.OV ---
Vital Signs 07/15/23 09:28 Height 5 ft 8 in Weight 159 lb BMI 24.2 BP 130/62 Blood Pressure Location Lt brachial Position Sitting Pulse 97 Pulse Source Pulse Oximeter Pulse Oximetry (%) 97 Oxygen Delivery Method Room Air Intake Visit Reasons: FMLA Intake Note: Pt is here today discuss FMLA paperwork Allergies No Known Allergies Allergy (Verified 07/15/23 09:42) Medication List - Last Reconciled 07/15/23 by Connie Atkins MD ferrous fumarate 324 mg PO DAILY omeprazole 20 mg PO BID oxycodone 5 mg PO .[id number] PRN phenazopyridine (Pyridium) 200 mg PO Q8H PRN sitz bath As directed Tobacco use date assessed: 07/15/23 Fall risk assessment: No Falls in past year Last assessed Fall Risk: 07/15/23 Dental Screening Dental Screen Date: 07/15/23 Did you have a dental visit in the last 12 months?: Yes Did you have a dental problem in the last 6 months where you did not have access to dental care?: No Was dental information given to patient?: Patient has dentist HPI FMLA HPI Details 72-year-old male with past medical history significant for congestive hiatal hernia but otherwise was healthy, here today to have an FMLA application completed. He has been diagnosed to have gastric adenocarcinoma seen and gastric biopsy done 06/19/2023. He initially presented to the ED 06/12/2023 after outpatient labs showed low blood levels. Pt reports he began having abdominal issues in January of last year with mild cramping and abdominal pain. Thought it was his hiatal hernia acting up. [place] some relief after taking TUMS and losing some weight. [place] overall well for awhile until 1-2 months ago when he began noticing a decrease in appetite and that he would get full quickly. Has occasional central abdominal discomfort/pain, and felt increasingly fatigued and . Recent labs h showed H&H of 5.9/18.5. Denies hematochezia, melena, hemoptysis, hematemesis, no shortness of breath or cough., no dysphagia or odynophagia, no chest pain/pressure, palpitations, no fever, chills CT?of abdomen pelvis showed a soft tissue mass oat f the distal esophagus/gastroesophageal junction; diffuse circumferential wall thickening of the distal esophagus and gastric wall secondary to nondistention versus diffuse infiltrating disease process; moderate to severe right renal hydronephrosis and hydroureter with no obstructing stone, but soft tissue thickening with a possible soft tissue mass of the right ureteral vesicular junction concerning for possible urethral neoplasm; perinephric fat stranding around the right kidney and low-attenuation of its cortex suggestive of a high degree of obstruction An infrarenal fusiform aortic aneurysm of 4.4 cm axially and about 6 cm cranial caudally was also seen . EKG demonstrated normal sinus rhythm with nonspecific ST abnormalities. Pt was treated with Protonix and transfused 5 units PRBCs. H/H has remained stable. s/p EGD with biopsy done on 06/14/23, with cardia mass seen just below GE junction, duodenitis but no active bleeding on exam. initial pathology returned negative for malignancy, likely biopsy is not deep enough and rebiopsy required. Repeat EGD with repeat biopsies and Colonoscopy was done 06/19/23. Colonoscopy showed 1 polyp in the cecum, which was removed, 2 additional polyps s/p hot snare polypectomy, all of which came back benign, and, large internal hemorrhoids with concern for thrombosis. General surgery consulted , no indication for surgical intervention at this time, recommended sitz baths for inflammation and can consider surgical evaluation again in the future if the hemorrhoids become problematic. anemia likely combination of bleeding from ulcerated mass, large friable polyp and hemorrhoids. Biopsy showed presence of gastric adenocarcinoma.. He was seen by Oncology for 07/13/2023 to discuss results of PET scan done 07/07/2023, and based on extent of lymphadenopathy seen on PET scan he has advanced disease probably inoperable. He was referred to [facility] for a 2nd opinion, and has an appointment already scheduled for 07/21/2023. He was evaluated by speech pathology and recommended regular diet with thin liquids, n o signs of aspiration.. With regards to the results of the CT scan showing likely right kidney obstruction, moderate to severe hydronephrosis and hydroureter with possible urothelial neoplasm, he was. seen by urology, and right stent placed. Initial biopsy of bladder was negative, but further investigation is necessary. Urine cytology was negative . He was seen by Urology 07/14/2023, Hb during this visit was 9.1. Plan is to do a Cystoscopy, right ureteroscopy, possible biopsy, stent exchange versus stent removal. He has a follow-up already scheduled in 4-6 weeks. Pathology negative for high grade urothelial carcinoma Incidental finding of an infrarenal fusiform aortic aneurysm of 4.[address] scan done during admission, recommended outpatient follow up He was continued on oral iron supplementation for his anemia At present patient states that he has been feeling better, no back or abdominal pain, his ureteral stent drains well with no hematuria seen . Remains in good spirits [facility] Medical History (Updated 07/20/23 @ 00:45 by Connie Atkins MD) Infrarenal abdominal aortic aneurysm (AAA) without rupture Iron deficiency anemia due to chronic blood loss Stomach cancer Hemorrhoids with complication Positive colorectal cancer screening using Cologuard test Hiatal hernia Erectile dysfunction Surgical History H/O colonoscopy Hx of cystoscopy History of rectal surgery Hx of esophagogastroduodenoscopy Family History Father Diabetes mellitus, Onset Age: 70 Mother No problems noted. Brother Acute myocardial infarction, Onset Age: 52 Social History Household Members: Spouse Housing: House Do you presently have visiting nurse or other home services: No Patient Tobacco Use Status: Former Tobacco user Quit Date: 06/2023 Tobacco use type: Cigarette e-Cigarette/Vaping Use: Never Used Second Hand Smoke Exposure: No service: No Current occupational status: employed Cognitive needs: No Hearing needs: No Vision needs: Yes Questionnaire PHQ-9 Over the last 2 weeks, how often have you been bothered by any of the following problems? 1. Little interest or pleasure in doing things: not at all 2. Feeling down, depressed, or hopeless: not at all 3. Trouble falling or staying asleep, or sleeping too much: not at all 4. Feeling tired or having little energy: several days 5. Poor appetite or overeating: several days 6. Feeling bad about yourself - or that you are a failure or have let yourself or your family down: not at all 7. Trouble concentrating on things, such as reading the newspaper or watching television: not at all 8. Moving or speaking so slowly that other people could have noticed. Or the opposite - being so fidgety or restless that you have been moving around a lot more than usual: not at all 9. Thoughts that you would be better off or of hurting yourself in some way: not at all Total score: 2 Depression Screening Interpretation: Negative Depression Screening Done: Yes 68116 - PHQ-9 Billing: Yes Source: Developed by Drs. Vaughn Zazueta, Katharina Rey, Rony Hidalgo and colleagues, with an educational douglas from [employer] Thrive Questionnaire Date Thrive assessed: 07/15/23 I am a: Patient What is your living situation today?: I have a steady place to live Within the past 12 months, did the food you bought not last and you didn't have the money to get more?: Never true Within the past 12 months, did you worry whether your food would run out before you got money to buy more?: Never true Do you have trouble paying for medicines?: No Do you have trouble getting transportation to medical appointments?: No Do you have trouble paying your heating and electricity bill?: No Do you have trouble taking care of your child, family member or friend?: No Do you have trouble with day-to-day activities such as bathing, preparing meals, shopping, managing finances, etc.?: No Are you currently unemployed and looking for a job?: No Are you interested in more education?: No THRIVE Score: 0 AUDIT C Alcohol Use Questionnaire (AUDIT-C) 1. How often do you have a drink containing alcohol?: 2-4 times a month 2. How many drinks containing alcohol do you have on a typical day when you are drinking?: 1 or 2 3. How often do you have six or more drinks on one occasion?: Never Total Score: 2 KRYSTIAN-7 AMB Questionnaire KRYSTIAN-7 Date KRYSTIAN - 7 assessed: 07/15/23 Feeling nervous, anxious, or on edge: 0 = Not at all Not being able to stop or control worryin = Not at all Worrying too much about different things: 0 = Not at all Trouble relaxin = Not at all Being so restless that it is hard to sit still: 0 = Not at all Becoming easily annoyed or irritable: 0 = Not at all Feeling afraid as if something awful might happen: 0 = Not at all Total KRYSTIAN-7 score (0-4 normal; 5-9 mild; 10-14 moderate; 15-21 severe): 0 Source: Developed by Drs. Vaughn Zazueta, Katharina Rey, Rony Hidalgo and colleagues, with an educational douglas from [employer] KRYSTIAN-7 Assessment Billing KRYSTIAN-7 Assessment Tool: KRYSTIAN-7 Assessment 53691 Review of Systems Const All systems reviewed & are unremarkable except as noted in HPI and below Reports no additional complaints Eyes Reports no additional complaints ENT Reports no additional complaints Card Denies chest pain, Denies rapid heart rate, Denies irregular heart rhythm, Denies lightheadedness, Denies dyspnea and Denies dyspnea on exertion Resp Denies cough, Denies dyspnea and Denies dyspnea on exertion GI Reports no additional complaints Reports no additional complaints Musc Reports no additional complaints Neuro Reports no additional complaints Psych Reports no additional complaints Endo Reports no additional complaints Mac/Lymph Reports no additional complaints Aller/Immun Reports no additional complaints Physical exam (Primary Care) Vital Signs: Last Vital Signs Pulse 97 07/15/23 09:28 BP 130/62 07/15/23 09:28 Pulse Ox 97 07/15/23 09:28 Oxygen Delivery Method Room Air 07/15/23 09:28 BMI result Body Mass Index 24.2 Tobacco/Smoking Status: Tobacco use Status Tobacco use date assessed 07/15/23 07/15/23 09:31 Patient Tobacco Use Status Former Tobacco user 07/15/23 09:31 Tobacco use type Cigarette 07/15/23 09:31 e-Cigarette/Vaping Use Never Used 07/15/23 09:31 PHQ-9: PHQ-9 Score PHQ-9: Total score 2 07/19/23 23:55 Depression Screening Interpretation: Negative Thrive Assessment: Date of Thrive Assessment Date Thrive assessed 07/15/23 07/15/23 09:31 Const General: comfortable and no acute distress Nutritional Appearance: average body habitus Orientation/consciousness: patient oriented x3 HENMT Head: Yes normocephalic Ears: hearing grossly normal bilaterally, external ears normal, TM's normal bilaterally and EAC's normal General nose exam: Normal external nose present Face and sinus: Yes face symmetric Mouth: Normal oral and palatal mucosa present, oropharynx normal and moist mucous membranes Eyes General: appearance normal, both eyes and all related structures Neck Neck: Yes full ROM, Yes no lymphadenopathy and Yes supple Chest Chest palpation & inspection: normal inspection of the chest Resp Effort & Inspection: normal respiratory effort and able to speak in complete sentences Auscultation: clear to auscultation bilaterally Cardio Rate: regular rate Rhythm: regular rhythm Heart sounds: S1 normal heart sound present and S2 normal heart sound present GI Inspection: Yes normal to inspection Palpation (GI): Soft to palpation, nontender, no guarding and no masses Auscultation: normal bowel sounds Other: Right stent in place draining clear fluid Skin General skin exam: no rashes or lesions noted Neuro General: patient oriented x3, gait normal, tone normal, moves all extremities, Normal light touch and pain sensation and no focal motor deficits Cognition (Neuro): normal cognition Gait exam (Neuro): Normal gait present Motor exam (neuro): 5/5 motor strength present throughout Extrem General: Yes full ROM, Yes no joint enlargement, Yes no clubbing, cyanosis or edema and Yes normal gait Psych Appearance: grossly normal and well kempt Mental Status: mental status grossly normal Speech and movement: Normal speech and movement present Affect: normal affect Attitude: cooperative Thought process: Normal thought process present Thought content: Normal thought content present Results Reviewed Results Reviewed: Laboratory Tests 07/14/23 08:30 Hgb 9.1 L D Hct 28.5 L D Name: [address] Age/Sex: 72/M : 1950 Unit#: [id number] Attend Dr: Ami Puckett MD Re07/13/23 Status: REG RCR Location: .ONC Disch: SPEC : [id number] BERNARDINO: 07/13/23 STATUS: COMP REQ : [id number] RECD: 07/13/[address]: Ami Puckett MD COMP: 07/13/23 ENTERED: 07/13/[address]: Connie Atkins MD ORDERED: CMP Test Result Flag Reference Sodium 136 135-145 mmol/L Potassium 4.8 3.3-5.1 mmol/L CL 102 96-108 mmol/L CO2 27 22-29 mmol/L Gap 12 12-20 BUN 23 H 9-16 mg/dL Creat 1.19 0.5-1.4 mg/dL Estimated CrCl 57.7 eGFR (calculated from the MDRD study equation) and eCrCl (calculated from the Cockcroft-Gault equation) are based on different parameters and may not yield comparable results. If eCrCl result is absurd, please check patient's height/weight. EGFR > 60 NOTE: For -[place] individuals, multiply the result by 1.210. 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 FMLA application completed today and given back to patient (2) Iron deficiency anemia due to chronic blood loss: Code(s): D50.0 - Iron deficiency anemia secondary to blood loss (chronic) Plan: Continue with ferrous fumarate 324 mg once daily (3) Hydronephrosis: Code(s): N13.30 - Unspecified hydronephrosis Qualifiers: Hydronephrosis type: unspecified Qualified Code(s): N13.30 - Unspecified hydronephrosis Plan: Followed by Urology, right ureteral stent in place (4) Ureteral stent present: Code(s): Z96.0 - Presence of urogenital implants Plan: Followed by Urology (5) Infrarenal abdominal aortic aneurysm (AAA) without rupture: Comment: 4.4.cm seen as an incidental finding on CT scan done June 2023 Code(s): I71.43 - Infrarenal abdominal aortic aneurysm, without rupture Plan: Patient aware, opts not to pursue further evaluation at present time Coding Level of Care Code Est Pt Level 4 (76288) Diagnoses Primary signet-ring cell carcinoma of stomach C16.9 Iron deficiency anemia due to chronic blood loss D50.0 Hydronephrosis, unspecified hydronephrosis type N13.30 Hydronephrosis type: unspecified Ureteral stent present Z96.0 Infrarenal abdominal aortic aneurysm (AAA) without rupture I71.43 Additional Codes KRYSTIAN-7 Assessment Billing - KRYSTIAN-7 Assessment Tool: KRYSTIAN-7 Assessment 33395 ([id number])
[2023-07-15 09:28] VITALS: BP 130/62; PULSE 97; O2SAT 97; BMI 24.2
== END 2023-07-15 10:10 | disposition home or self-care (01) ==
PROVIDERS: PCP Internal Medicine; Visit Provider Internal Medicine
DX: C16.9 Malignant neoplasm of stomach, unspecified (principal); I71.43 Infrarenal abdominal aortic aneurysm, without rupture; D50.0 Iron deficiency anemia secondary to blood loss (chronic); N13.30 Unspecified hydronephrosis; Z96.0 Presence of urogenital implants
CPT/HCPCS: 99214

== ENCOUNTER 2023-10-12 16:46 | Outpatient (REF) | payer OTHER, SELFPAY ==
[2023-10-12 17:20] LABS: Mean Corpuscular HGB Conc 31.9 g/dl (31.0-36.0); Mean Corpuscular Hemoglobin 28.6 pg (27.0-33.0); Mean Corpuscular Volume 89.9 fL (80.0-98.0); Mean Platelet Volume 11.2 fL (9.4-12.4); NRBC Pct Auto 0.4 /100WBC (0.0-0.2); Platelet Count 241 X10*3/uL (160-400); Red Blood Count 2.27 X10*6/uL (4.60-5.80); Red Cell Distribution Width 20.5 % (11.0-16.0); White Blood Count 15.1 X10*3/uL (4.8-10.8)
[2023-10-12 17:25] LABS: Hemoglobin 6.5 g/dl (14.0-18.0)
[2023-10-12 17:26] LABS: Hematocrit 20.4 % (42.0-52.0)
== END 2023-10-12 16:47 | disposition home or self-care (01) ==
LOC: HO.LAB 16:46
PROVIDERS: PCP Internal Medicine; Visit Provider Internal Medicine
DX: N32.89 Other specified disorders of bladder (principal)
CPT/HCPCS: 36415; 85027

== ENCOUNTER 2023-10-13 09:00 | Outpatient (RCR) | payer MEDICARE, OTHER, SELFPAY, MEDICAID ==
[2023-06-30 11:45] VITALS: BP 137/65; PULSE 89; TEMP 37.1; O2SAT 98
[2023-06-30 12:34] LABS: Hematocrit 22.2 % (42.0-52.0); Hemoglobin 7.2 g/dl (14.0-18.0); Mean Corpuscular HGB Conc 32.4 g/dl (31.0-36.0); Mean Corpuscular Volume 89.5 fL (80.0-98.0); Mean Platelet Volume 10.3 fL (9.4-12.4); Platelet Count 283 X10*3/uL (160-400); Red Blood Count 2.48 X10*6/uL (4.60-5.80); Red Cell Distribution Width 13.8 % (11.0-16.0); White Blood Count 7.9 X10*3/uL (4.8-10.8)
--- NOTE | 2023-06-30 12:44 | HO.HEMONCPA ---
Addendum entered by Delisa Berrios 07/01/23 17:05: [facility]- APPT BOOKED AT 8:15am ON 07/07/23. DOCUMENT SCANNED IN THE CHART Original Note: NO PA REQUIRED FOR PET SCAN. SCAN COVERED UNDER MEDICARE PART B BENEFITS. APPT REQUEST DOCUMENTS FAXED TO [facility]
[2023-06-30 12:53] LABS: Anion Gap 12 (12-20); Blood Urea Nitrogen 18 mg/dL (9-16); Calcium 8.7 mg/dL (8.4-10.2); Carbon Dioxide 22 mmol/L (22-29); Chloride 103 mmol/L (96-108); Estimated Glomerular Filt Rate > 60; Glucose Fasting 136 mg/dL (60-99); Lactate Dehydrogenase 172 U/L (118-273); Sodium 133 mmol/L (135-145)
[2023-06-30 13:10] LABS: Ferritin 19 ng/mL (20-250)
--- NOTE | 2023-06-30 14:09 | MHC.HEMONCMA ---
pt was seen today for carcinoma of stomach consult ,vss. pt will f/u in 2 weeks with provider.
--- NOTE | 2023-06-30 14:35 | P.CNHO_ITS ---
Subjective - Subjective Chief complaint: Weakness, weight loss Patient: new to practice Consult date: 06/30/23 Primary Care Provider: Connie Atkins MD Medical Summary: Diagnosis: Gastric adenocarcinoma 06/2023 HPI - Consult Narrative Reason for consult: Gastric cancer Narrative: Rd Davis is a 72 year old male who has been referred for further management of recently diagnosed gastric adenocarcinoma. He presented with symptoms weight loss, early satiety in extreme weakness. He was diagnosed with possible GERD and started on PPI therapy earlier this year. His symptoms of weakness progressed and he lost more than 15 lb. He was unable to see his PCP therefore he saw holistic provider who did blood work and noted that his hemoglobin was below 6 gram/dL. He was sent to emergency department, further work[place] [facility] revealed mass in the GE junction on imaging. He underwent endoscopy and biopsy. He was also noted to have severe right hydroureteronephrosis, he was evaluated by Urology. He had stent placed and biopsy of bladder thickening was performed which was negative. He had no symptoms of hematuria, hematochezia or gross melena. He had his 1st screening colonoscopy during hospitalization in June. He lives at home with his , his 3 children live close by. 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 He is a smoker but very few cigarettes and has not smoked in the recent months. No history of excess alcohol use. He has not had any abdominal discomfort, he is now on iron and reports mild constipation. He felt occasionally nauseous but no significant emesis. No fever, chills or night sweats. He reports no underlying diabetes, heart problems or lung problems. Review of Systems - Constitutional Reports as per HPI, Reports fatigue, Reports lack of energy, Reports malaise, Reports weight loss [facility] Medical History: Medical History (Last Reviewed 06/30/23 @ 11:41 by Meghna Nichols) Erectile dysfunction Hemorrhoids Hemorrhoids with complication Hiatal hernia Family History: Family History (Last Reviewed 06/30/23 @ 11:42 by Meghna Nichols) Father Diabetes mellitus, Onset Age: 70 Mother No problems noted. Brother Acute myocardial infarction, Onset Age: 52 Surgical History: Surgical History (Last Reviewed 06/30/23 @ 11:41 by Meghna Nichols) History of rectal surgery Hx of esophagogastroduodenoscopy Social History: Social History (Last Updated 06/30/23 @ 11:43 by Meghna Nichols) Living Situation History: Household Members: Spouse Housing: House Do you presently have visiting nurse or other home services: No Alcohol History Details: 1. How often do you have a drink containing alcohol?: a. Never Tobacco History: Patient Tobacco Use Status: Current someday Tobacco Tobacco use type: Cigarette e-Cigarette/Vaping Use: Never Used Second Hand Smoke Exposure: No Substance Use History: Use of substances other than those prescribed or required for medical reasons : No Domestic Abuse History: Have you been hit, kicked, punched, or otherwise hurt by someone within the past year? If so, by whom?: No Do you feel safe in your current relationship?: Yes Homicidal Assessment: Do you have thoughts of harming others: None Do you have a plan to hurt others: No Plan Occupation Assessmet: service: No Current occupational status: employed Home Medications and Allergies Home Medications Medication Instructions Recorded Confirmed Type Candibactin 1 cap PO DAILY 06/12/23 06/12/23 History Spectrazyme Metagest 1 cap PO DAILY 06/12/23 06/12/23 History Allergies Allergy/AdvReac Type Severity Reaction Status Date / Time No Known Allergies Allergy Verified 06/30/23 11:45 Physical Exam Vital signs: Vital Signs Temp 98.8 F 06/30/23 11:45 Pulse 89 06/30/23 11:45 BP 137/65 06/30/23 11:45 Pulse Ox 98 06/30/23 11:45 O2 Del Method Room Air 06/30/23 11:45 - Constitutional Present: no acute distress - Routine HEENT Exam Head: Present: normal inspection Eye: Present: conjunctivae pale, PERRL - Routine Neck Exam Present: supple. Absent: lymphadenopathy - Routine Respiratory Exam Present: CTAB - Routine Cardiovascular Exam Cardiovascular: Present: RRR, S1, S2 - Routine Abdominal Exam Present: soft. Absent: distended, organomegaly, tenderness - Routine Skin Exam Present: intact. 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 This is a 72-year-old male diagnosed with gastric adenocarcinoma in June 2023. He presented with early satiety, severe anemia and weight loss. CT abdomen/pelvis with contrast in June 2023 showed diffuse circumferential wall thickening of distal esophagus and gastric wall as well as right renal hydronephrosis with possible soft tissue mass at the right ureterovesicular junction measuring 1.8 x 1.1 cm concerning for urothelial neoplasm. In addition infrarenal aortic aneurysm measuring 4.4 cm. On 06/19/2023 patient underwent upper endoscopy and colonoscopy which revealed circumferential subepithelial mass arising below GE junction in the cardia, prominent or growth along lesser curvature as well as ulceration along greater curvature which was spontaneously oozing. Total of 4 polyps removed from the colon which were all benign. Biopsy of stomach mass revealed poorly differentiated adenocarcinoma with signet ring features involving gastric mucosa as well as greater curvature of the stomach. HER2 negative. IHC positive for CK7. I have asked the pathologist to perform MSI, PD-L1 and NGS testing. Further evaluation with PET scan is recommended. CT chest with IV contrast was ordered by his door clamp operator. If he does not have any evidence of metastatic disease, further evaluation with EUS and/or laparoscopic staging is generally recommended. He is a borderline candidate for surgical resection based on his comorbidities and performance status. A referral to surgery in [place] will also be made. 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 He has had a stent placed, initial biopsy of bladder was negative but further evaluation of this is necessary. 2. Severe anemia, he is on oral iron supplementation. He is becoming constipated with iron. At this time he is being transfused 2 units PRBC. 3. Bladder pathology, right hydronephrosis. Status post stent placement, he has a follow-up with Dr. Cueva tomorrow. - Time Spent With Patient Time Spent with Patient (in minutes): 60
[2023-07-01] VITALS (7 sets, daily range): BP systolic 129–141; BP diastolic 60–79; PULSE 79–89; RESP 17–18; TEMP 37–37.5; O2SAT 100; BMI 22.4
[2023-07-01 09:13] LABS: HBS Num1 1.54 mIU/mL (0-7.99); HBc Num1 0.07 S/CO (0.00-0.79); HBsAGNum1 0.34 S/CO (0.00-0.99); Hepatitis B Core Antibody Nonreactive (Nonreactive); Hepatitis B Surface Antigen Negative (Negative); ~Hepatitis B Surface Antibody NONREACTIVE (Nonreactive)
[2023-07-01 09:26] LABS: Folate 12.7 ng/mL (> or = 4.0); Vitamin B12 535 pg/mL (200-900)
--- NOTE | 2023-07-01 11:30 | HE.ONCSEC ---
Consults notes and lab report faxed to the PCP and the referring Provider
--- NOTE | 2023-07-01 11:43 | MHC.HEMONC ---
I met with patient today while he was receiving blood transfusion. I introduced myself and explained my role as Nurse Navigator. He tells me he is seeing his Urologist and GI MD on Thursday. I did a nutrition assessment on him and have made referral to Lift Truck Mechanic as he has lost 15 pounds in last several months due to early satiety. Otherwise, he does not have specific complaints. He has a HCP and will bring in his paperwork at next visit. I gave him my contact information should he have questions.
--- NOTE | 2023-07-01 15:43 | MHC.HEMONC ---
Pt here for transfusion of 2 units RBC. Pt reports having transfusions in past. Reviewed s/s reactions. IV started in LLA , good blood return. 2 units of blood transfused. Patient tolerated transfusions well. Lungs remain clear pre and post transfusion. IV removed catheter intact. Calendar given and patient Departed with steady gait.
--- NOTE | 2023-07-10 14:12 | MHC.HEMONC ---
Pt's son, Damir, called, w/ his father, asking for help to understand what result of 07/06/[address] mean. Nurse reviewed w/ Dr. Puckett, per Dr. Puckett, pt and family are already aware of his gastric adenocarcinoma dx, but nurse did inform son that CT shows increased lymphadenopathy in several lymph nodes on L side of neck, chest, and abdomen, which is indicative of the cancer spreading, which is important for his tx team to know in order to choose the best tx options for him. Nurse confirmed that pt had been for PET CT on Thu this week, 07/06, but the results have yet to be read. Pt's son will check the portal and may call to ask for help reading, but regardless will be coming w/ his father for Onc f/u w/ Dr. Puckett this 07/13/23.
[2023-07-13] VITALS (9 sets, daily range): BP systolic 101–156; BP diastolic 57–79; PULSE 78–96; RESP 16–18; TEMP 36.3–37.4; O2SAT 95–99; BMI 23.2; BMI 24.7
--- NOTE | 2023-07-13 08:55 | PM.HEMONCPN ---
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 He was diagnosed with possible GERD and started on PPI therapy earlier this year. His symptoms of weakness progressed and he lost more than 15 lb. He was unable to see his PCP therefore he saw holistic provider who did blood work and noted that his hemoglobin was below 6 gram/dL. He was sent to emergency department, further workup [place] [facility] [place] mass in the GE junction on imaging. He underwent endoscopy and biopsy. He was also noted to have severe right hydroureteronephrosis, he was evaluated by Urology. He had stent placed and biopsy of bladder thickening was performed which was negative. He had no symptoms of hematuria, hematochezia or gross melena. He had his 1st screening colonoscopy during hospitalization in June 2023. Interval History Interval history: Mr Davis is here in follow-up, he is accompanied by his and 2 children. They are here to discuss results of PET scan. They have appointment with urology tomorrow for repeat cystoscopy. He reports pain over right flank ever since stent placement. He denies hematuria. [facility] Medical History: Medical History (Last Updated 07/13/23 @ 08:36 by Jemma Stapleton RN) Erectile dysfunction Hemorrhoids Hemorrhoids with complication Hiatal hernia Positive colorectal cancer screening using Cologuard test Stomach cancer Family History: Family History (Last Reviewed 07/13/23 @ 08:30 by Amy Allred) Father Diabetes mellitus, Onset Age: 70 Mother No problems noted. Brother Acute myocardial infarction, Onset Age: 52 Surgical History: Surgical History (Last Updated 07/13/23 @ 08:35 by Jemma Stapleton RN) H/O colonoscopy History of rectal surgery Hx of cystoscopy Hx of esophagogastroduodenoscopy Social History: Social History (Last Reviewed 07/13/23 @ 08:30 by Amy Allred) Living Situation History: Household Members: Spouse Housing: House Do you presently have visiting nurse or other home services: No Alcohol History Details: 1. How often do you have a drink containing alcohol?: a. Never Tobacco History: Patient Tobacco Use Status: Current someday Tobacco Tobacco use type: Cigarette e-Cigarette/Vaping Use: Never Used Second Hand Smoke Exposure: No Substance Use History: Use of substances other than those prescribed or required for medical reasons: No Domestic Abuse History: Have you been hit, kicked, punched, or otherwise hurt by someone within the past year? If so, by whom?: No Do you feel safe in your current relationship?: Yes Homicidal Assessment: Do you have thoughts of harming others: None Do you have a plan to hurt others: No Plan Occupation Assessmet: service: No Current occupational status: employed Home Medications and Allergies Home Medications ?Medication ?Instructions ?Recorded ?Confirmed ?Type Candibactin 1 cap PO DAILY 06/12/23 07/13/23 History Allergies Allergy/AdvReac Type Severity Reaction Status Date / Time No Known Allergies Allergy Verified 07/13/23 08:30 Exam Vital signs: Vital Signs Temp 98.6 F 07/01/23 13:45 Pulse 88 07/13/23 08:31 Resp 18 07/01/23 13:45 BP 154/69 H 07/13/23 08:31 Pulse Ox 99 07/13/23 08:31 O2 Del Method Room Air 07/13/23 08:31 Intake & Output 07/12/23 07/13/23 07/13/23 18:59 06:59 18:59 Other: Weight 71.3 kg Weight in Grams 39682 Weight 71.3 kg BMI result Body Mass Index 23.2 - Constitutional Present: no acute distress - Routine HEENT Exam Head: Present: normal inspection - Routine Respiratory Exam Present: CTAB - Routine Cardiovascular Exam Cardiovascular: Present: RRR, S1, S2 - Routine Abdominal Exam Present: soft. Absent: distended, organomegaly, tenderness - Routine Skin Exam Present: intact. Absent: cyanosis - Routine Neurological Exam Present: alert, oriented X3 Data - Labs CBC & Chem 7: 07/13/23 08:53 07/13/23 08:53 Labs: Laboratory Last Values WBC 7.9 X10*3/uL (4.8-10.8) 06/30/23 12:17 RBC 2.48 X10*6/uL (4.60-5.80) L 06/30/23 12:17 Hgb 7.2 g/dl (14.0-18.0) L 06/30/23 12:17 Hct 22.2 % (42.0-52.0) L 06/30/23 12:17 MCV 89.5 fL (80.0-98.0) 06/30/23 12:17 MCH 29.0 pg (27.0-33.0) 06/30/23 12:17 MCHC 32.4 g/dl (31.0-36.0) 06/30/23 12:17 RDW 13.8 % (11.0-16.0) 06/30/23 12:17 Plt Count 283 X10*3/uL (160-400) 06/30/23 12:17 MPV 10.3 fL (9.4-12.4) 06/30/23 12:17 Absolute Nucleated RBC 0.000 X10*3/uL (0.0-0.012) 06/30/23 12:17 Nucleated RBC % (auto) 0.0 /100WBC (0.0-0.2) 06/30/23 12:17 Sodium 133 mmol/L (135-145) L 06/30/23 12:17 Potassium 4.0 mmol/L (3.3-5.1) 06/30/23 12:17 Chloride 103 mmol/L (96-108) 06/30/23 12:17 Carbon Dioxide 22 mmol/L (22-29) 06/30/23 12:17 Anion Gap 12 (12-20) 06/30/23 12:17 BUN 18 mg/dL (9-16) H 06/30/23 12:17 Creatinine 1.18 mg/dL (0.5-1.4) 06/30/23 12:17 Estim Creat Clear Calc TNP 06/30/23 12:17 Estimated GFR > 60 06/30/23 12:17 Fasting Glucose 136 mg/dL (60-99) H 06/30/23 12:17 Calcium 8.7 mg/dL (8.4-10.2) D 06/30/23 12:17 Ferritin 19 ng/mL (20-250) L 06/30/23 12:17 Lactate Dehydrogenase 172 U/L (118-273) 06/30/23 12:17 Carcinoembryonic Ag 6.40 ng/mL 06/30/23 12:17 Vitamin B12 535 pg/mL (200-900) 07/01/23 08:16 Folate 12.7 ng/mL (> or = 4.0) 07/01/23 08:16 Hep Bs Antigen Negative (Negative) 07/01/23 08:16 Hep Bs Antibody NONREACTIVE (Nonreactive) 07/01/23 08:16 Hep B Core Total Ab Nonreactive (Nonreactive) 07/01/23 08:16 Blood Type AB Negative 07/01/23 08:16 Antibody Screen NEGATIVE 07/01/23 08:16 Crossmatch See Detail 07/01/23 08:16 Assessment and Plan Patient Active problem list reviewed?: Yes (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 This is a 72-year-old male diagnosed with gastric adenocarcinoma in June [address]23. CT abdomen/pelvis with contrast in June 2023 showed diffuse circumferential wall thickening of distal esophagus and gastric wall as well as right renal hydronephrosis with possible soft tissue mass at the right ureterovesicular junction measuring 1.8 x 1.1 cm concerning for urothelial neoplasm. In addition infrarenal aortic aneurysm measuring 4.4 cm. On 06/19/2023 patient underwent upper endoscopy and colonoscopy which revealed circumferential subepithelial mass arising below GE junction in the cardia, prominent or growth along lesser curvature as well as ulceration along greater curvature which was spontaneously oozing. Total of 4 polyps removed from the colon which were all benign. Biopsy of stomach mass revealed poorly differentiated adenocarcinoma with signet ring features involving gastric mucosa as well as greater curvature of the stomach. HER2 negative. IHC positive for CK7. Proficient MMR, PD-L1 detected 3%. River TRK not expressed.PTEN deletion detected, MET amplification not detected. CT chest with IV contrast performed 07/07/2023 demonstrated abnormally thickened gastric wall suspicious for infiltrative process. Enlarged left supraclavicular, upper mediastinal and upper abdominal lymph nodes suspicious for pathological lymphadenopathy. Small left pleural effusion. Small pulmonary nodules, none larger than 3 mm. Largest lymph node in the left para-aortic region measures 1.9 cm. PET-CT performed 07/07/2023 showed multiple low FDG avid cervical lymph nodes with SUV 3.1, largest lymph node measuring 1.3 x 0.9 cm. For FDG avid left supraclavicular lymph nodes, most intense with SUV 4.1 and measuring 1.1 x 0.6 cm. Multiple FDG avid mediastinal, retrosternal and caryn aortic lymph nodes. Diffuse FDG activity throughout gastric wall with SUV 8.3, multiple FDG avid lymph nodes in the gastrohepatic, mesenteric and retroperitoneal lymph nodes. I discussed above findings with the patient. Based on extent of lymphadenopathy, he has advanced disease, probably inoperable. He is being referred to [facility] for a 2nd opinion. He would be a candidate for palliative chemotherapy with 5 FU or capecitabine, oxaliplatin and nivolumab. 2. Severe anemia, he is on oral iron supplementation. At this time he is being transfused 2 units PRBC. 3. Right hydronephrosis. He was found to have severe right hydronephrosis and possible urothelial malignancy at the right ureteral/bladder junction. He has had a stent placed, initial biopsy of bladder was negative but further evaluation of this is necessary. Urine cytology was negative, he has a follow-up with urology this week. He was advised to call sooner if he wants to start chemotherapy at [facility]. Follow-up in 3 weeks. - Time Spent With Patient Time Spent with Patient (in minutes): 40
[2023-07-13 09:17] LABS: Mean Corpuscular HGB Conc 31.1 g/dl (31.0-36.0); Mean Corpuscular Hemoglobin 28.3 pg (27.0-33.0); Mean Corpuscular Volume 91.2 fL (80.0-98.0); Mean Platelet Volume 9.9 fL (9.4-12.4); Platelet Count 300 X10*3/uL (160-400); Red Blood Count 2.26 X10*6/uL (4.60-5.80); Red Cell Distribution Width 14.4 % (11.0-16.0); White Blood Count 7.6 X10*3/uL (4.8-10.8)
[2023-07-13 09:19] LABS: Hematocrit 20.6 % (42.0-52.0); Hemoglobin 6.4 g/dl (14.0-18.0)
[2023-07-13 09:20] LABS: Alanine Aminotransferase 38 U/L (0-40); Albumin Level 3.5 g/dL (3.5-5.0); Alkaline Phosphatase 55 U/L (39-117); Anion Gap 12 (12-20); Aspartate Amino Transferase 35 U/L (5-37); Bilirubin Total 0.3 mg/dL (0.0-1.0); Blood Urea Nitrogen 23 mg/dL (9-16); Calcium 9.2 mg/dL (8.4-10.2); Carbon Dioxide 27 mmol/L (22-29); Chloride 102 mmol/L (96-108); Creatinine Clr Calc Pharmacy 57.7; Estimated Glomerular Filt Rate > 60; Glucose Random 120 mg/dL (60-115); Potassium 4.8 mmol/L (3.3-5.1); Sodium 136 mmol/L (135-145); Total Protein 6.6 g/dL (6.5-8.0)
[2023-07-13] MEDS: Acetaminophen 325 MG TABLET 650 MG PO (13:33)
--- NOTE | 2023-07-13 15:32 | MHC.HEMONC ---
Patient here for follow up- critical labs H/H 6.4/20.6. Plan for 2 units of RBCs. Blood bank notified- consent signed. #22 angio inserted to left AC- positive blood return. VSS. Lungs clear. No respiratory symptoms. 2 units RBCs well tolerated- no signs of transfusion reaction noted. IV removed- catheter intact, no redness or swelling noted to site. Follow up labs in 2 weeks- discharge packet provided. Patient departed unit via wheelchair. Patient did receive call from [facility] today for second opinion regarding cancer diagnosis. Patient is waiting to hear back for appt.
--- NOTE | 2023-07-14 09:19 | MHC.HEMONCMA ---
pt was referred to [facility] for stomach cancer by . Referral was fax on 07/13/23 and fax confirmation was successful.
--- NOTE | 2023-07-27 10:22 | MHC.HEMONC ---
Per Dr. Puckett, pt has been admitted to a [place] facility after seeking 2nd opinion elsewhere, she does not expect pt will come in for any future appts here. Nurse cancelled pt's lab appt for today.
--- NOTE | 2023-08-06 11:23 | MHC.HEMONCMA ---
called and spoke to front maker from [facility] regards to pt's report from 07/28/23. front maker stated the appt was cancled and when asked why was appt was canceled it was unknown.
--- NOTE | 2023-08-28 07:43 | HE.ONCSEC ---
Addendum entered by Chandni Smith 08/28/23 07:46: The patient is also getting radiation at [facility], completed 5 tx as of 08/26/23 Original Note: The patient is getting FOLFOX chemotherapy at [facility], started 08/12/23
--- NOTE | 2023-10-12 15:49 | MHC.HEMONC ---
Pt , Joe called to see if Dr Puckett would order blood tx for her . He is home and on [facility] since [place] discharge and she was told by envelope maker that if he was symptomatic with anemia he could sign off hospice and get one. He is weak and pale. She does want him to have the transfusion if needed. Dr Puckett said he could come in today for CBC and T and S and we can plan according to results.
--- NOTE | 2023-10-12 16:10 | MHC.HEMONC ---
I spoke to Carmen at [facility]. She is aware pt is coming in for labs and may want tx. I will let her know their plan. She will send me notes on him as well.
--- NOTE | 2023-10-12 17:17 | MHC.HEMONC ---
Addendum entered by Nawaf Pereira RN 10/12/23 17:26: Lab reported critical low Hgb/Hct of 6.5/20.4, results were shared w/ Dr. Puckett and Nurse Tiago Parker. Original Note: Pt was in for lab draw, arrived via w/c w/ his son and fam member, went to main lab, but requested labs drawn from port, process inspector came to assist w/ type and screen, nurse noted pt's port is already accessed, utilized by [facility] team. Nurse flushed port, found positive blood return, collected ordered specimens, then flushed port w/ NS, clamped and capped, left port accessed for further use by home care team. Pt departed via w/c, pt to be contacted the following day to discuss potential plan for blood transfusion and correct process for hospice pt, also to discuss future care expectations from this office.
[2023-10-13] VITALS (7 sets, daily range): BP systolic 95–101; BP diastolic 54–58; PULSE 90–99; RESP 17–19; TEMP 36.5–36.6; O2SAT 99
--- NOTE | 2023-10-13 08:52 | MHC.HEMONC ---
Pt called by me with H and H report from yesterday. She does want to try having him receive a transfusion this once despite being on Hospice. I had a travis discussion with her about this being an end of life symptom with weakness and failure to thrive and she does understand. She agreed that she will not have him get bloodwork and/or transfusions if he declines after blood tx. Carmen at [facility] informed. They will keep him on Hospice for this one transfusion of 2 units. Pt is on his way in.
--- NOTE | 2023-10-13 14:22 | PM.HEMONCPN ---
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 He was diagnosed with possible GERD and started on PPI therapy earlier this year. His symptoms of weakness progressed and he lost more than 15 lb. He was unable to see his PCP therefore he saw holistic provider who did blood work and noted that his hemoglobin was below 6 gram/dL. He was sent to emergency department, further workup at [facility] [place] revealed mass in the GE junction on imaging. He underwent endoscopy and biopsy. He was also noted to have severe right hydroureteronephrosis, he was evaluated by Urology. He had stent placed and biopsy of bladder thickening was performed which was negative. He had no symptoms of hematuria, hematochezia or gross melena. He had his 1st screening colonoscopy during hospitalization in June 2023. Interval History Interval history: Mr Davis is now receiving hospice care at home. Patient and family requested blood transfusion as he is having ongoing in GI bleeding and has developed severe anemia. He understands that this will not necessarily prolong life and he will not be scheduled for repeated blood transfusions. He reports fatigue in shortness of breath. [facility] Medical History: Medical History (Last Updated 07/20/23 @ 00:45 by Connie Atkins MD) Erectile dysfunction Hemorrhoids with complication Hiatal hernia Infrarenal abdominal aortic aneurysm (AAA) without rupture Iron deficiency anemia due to chronic blood loss Positive colorectal cancer screening using Cologuard test Stomach cancer Family History: Family History (Last Reviewed 07/19/23 @ 23:52 by Connie Atkins MD) Father Diabetes mellitus, Onset Age: 70 Mother No problems noted. Brother Acute myocardial infarction, Onset Age: 52 Surgical History: Surgical History (Last Reviewed 07/19/23 @ 23:52 by Connie Atkins MD) H/O colonoscopy History of rectal surgery Hx of cystoscopy Hx of esophagogastroduodenoscopy Social History: Social History (Last Reviewed 07/19/23 @ 23:52 by Connie Atkins MD) Living Situation History: Household Members: Spouse Housing: House Do you presently have visiting nurse or other home services: No Alcohol History Details: 1. How often do you have a drink containing alcohol?: a. Never Tobacco History: Patient Tobacco Use Status: Former Tobacco user Tobacco use type: Cigarette e-Cigarette/Vaping Use: Never Used Second Hand Smoke Exposure: No Substance Use History: Use of substances other than those prescribed or required for medical reasons: No Domestic Abuse History: Have you been hit, kicked, punched, or otherwise hurt by someone within the past year? If so, by whom?: No Do you feel safe in your current relationship?: Yes Homicidal Assessment: Do you have thoughts of harming others: None Do you have a plan to hurt others: No Plan Occupation Assessmet: service: No Current occupational status: employed Home Medications and Allergies Allergies Allergy/AdvReac Type Severity Reaction Status Date / Time No Known Allergies Allergy Verified 07/15/23 09:42 Exam Vital signs: Vital Signs Temp 97.8 F 10/13/23 14:17 Pulse 96 10/13/23 14:17 Resp 19 10/13/23 14:17 BP 98/56 L 10/13/23 14:17 Pulse Ox 99 10/13/23 11:20 O2 Del Method Room Air 10/13/23 11:20 Intake & Output 10/12/23 10/13/23 10/13/23 18:59 06:59 18:59 Intake Total 350 / 350 Balance 350 / 350 Intake: Intake (Blood Product) Amount 350 / 350 Red Blood Cells (E0336) Unit 350 / 350 [id number] Weight 75.8 kg BMI result Body Mass Index 24.7 - Constitutional Present: cachectic - Routine HEENT Exam Head: Present: normal inspection Eye: Present: conjunctivae pale - Routine Respiratory Exam Present: CTAB. Absent: rales - Routine Cardiovascular Exam Cardiovascular: Present: RRR, S1, S2 - Routine Abdominal Exam Present: soft, tenderness. Absent: distended - Routine Extremities Exam Present: pedal edema - Routine Skin Exam Present: intact. 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 This is a 72-year-old male diagnosed with gastric adenocarcinoma in June [address]23. CT abdomen/pelvis with contrast in June 2023 showed diffuse circumferential wall thickening of distal esophagus and gastric wall as well as right renal hydronephrosis with possible soft tissue mass at the right ureterovesicular junction measuring 1.8 x 1.1 cm concerning for urothelial neoplasm. In addition infrarenal aortic aneurysm measuring 4.4 cm. On 06/19/2023 patient underwent upper endoscopy and colonoscopy which revealed circumferential subepithelial mass arising below GE junction in the cardia, prominent or growth along lesser curvature as well as ulceration along greater curvature which was spontaneously oozing. Total of 4 polyps removed from the colon which were all benign. Biopsy of stomach mass revealed poorly differentiated adenocarcinoma with signet ring features involving gastric mucosa as well as greater curvature of the stomach. HER2 negative. IHC positive for CK7. Proficient MMR, PD-L1 detected 3%. River TRK not expressed.PTEN deletion detected, MET amplification not detected. CT chest with IV contrast performed 07/07/2023 demonstrated abnormally thickened gastric wall suspicious for infiltrative process. Enlarged left supraclavicular, upper mediastinal and upper abdominal lymph nodes suspicious for pathological lymphadenopathy. Small left pleural effusion. Small pulmonary nodules, none larger than 3 mm. Largest lymph node in the left para-aortic region measures 1.9 cm. PET-CT performed 07/07/2023 showed multiple low FDG avid cervical lymph nodes with SUV 3.1, largest lymph node measuring 1.3 x 0.9 cm. For FDG avid left supraclavicular lymph nodes, most intense with SUV 4.1 and measuring 1.1 x 0.6 cm. Multiple FDG avid mediastinal, retrosternal and caryn aortic lymph nodes. Diffuse FDG activity throughout gastric wall with SUV 8.3, multiple FDG avid lymph nodes in the gastrohepatic, mesenteric and retroperitoneal lymph nodes. Patient was admitted at [facility] for nearly 2 months because of complications of bleeding and kidney failure. He received 2 rounds of chemotherapy with FOLFOX while hospitalized, hospital course was extremely long and complicated requiring multiple surgical procedures. He has now transitioned to comfort/hospice care. He has ongoing bleeding from the gastric mass. Since he was feeling extremely short of breath from the anemia family and patient requested blood transfusion today. He has anasarca secondary to malignancy and hypoalbuminemia. Echocardiogram/EF was 65% in 07/2023. He is being given 2 units PRBC today. - Time Spent With Patient Time Spent with Patient (in minutes): 10
[2023-10-13] MEDS: Magnesium Hydrox/Alum Hydrox 30 ML ORAL.SUSP PO (14:45)
--- NOTE | 2023-10-13 16:04 | MHC.HEMONC ---
Addendum entered by Yady Fowler RN 10/13/23 16:31: Port flushed with heparin and de accessed Original Note: Pt here for blood transfusion. H & H 6.5/20.4/platelets 241. Consent for blood transfusion obtained. Pt arrived with right chest port accessed. Port flushed with 0.9% NS-patent with blood return noted. Vital signs as noted on blood transfusion flow record. Breath sounds clear upper aaron diminished lower lobes. 2 units of RBC's given over 100 ml/hr initially then increased to 200ml hour per Dr Puckett's order. Vital signs as noted. Port flushed with 0.9% NS-capped and clamped. Discharge packet given-no follow scheduled. Discharged to front of hospital via wheelchair.
== END 2023-10-28 14:16 | disposition home or self-care (01) ==
LOC: HO.ONC 09:00
PROVIDERS: PCP Internal Medicine; Visit Provider Internal Medicine
DX: C16.9 Malignant neoplasm of stomach, unspecified (principal); N13.30 Unspecified hydronephrosis; D64.9 Anemia, unspecified; R60.1 Generalized edema; E88.09 Other disorders of plasma-protein metabolism, not elsewhere classified; Z79.899 Other long term (current) drug therapy; Z51.5 Encounter for palliative care
CPT/HCPCS: 36415; 36430; 36591; 80048; 80053; 82378; 82607; 82728; 82746; 83615; 85027; 86704; 86706; 86850; 86900; 86901; 86923; 87340; 99202; 99212; J1642; P9016